=== PATIENT | male | born 1960 | race Two or more races ===

== ENCOUNTER 2020-04-10 11:02 | Inpatient (IN) | payer OTHER, SELFPAY ==
--- NOTE | 2020-04-10 11:04 | ECG_ITS ---
Test Reason : REPEAT Blood Pressure : / mmHG Vent. Rate : 065 BPM Atrial Rate : 065 BPM P-R Int : 166 ms QRS Dur : 066 ms QT Int : 422 ms P-R-T Axes : 028 045 015 degrees QTc Int : 438 ms Normal sinus rhythm Nonspecific T wave abnormality Abnormal ECG No significant changes seen Referred By: Michael Bender Electronically Signed By:ROSETTA CASILLAS MD
--- NOTE | 2020-04-10 11:04 | XR_ITS ---
EXAMINATION: XR CHEST CLINICAL INFORMATION: Chest pain COMPARISON: December 02, 2016 TECHNIQUE: AP portable view of the chest was obtained. FINDINGS: No significant abnormality is noted involving the heart, lungs, mediastinum, bony thorax or soft tissues. Small lung volumes. XR/XR chest 1V IMPRESSION: No acute parenchymal disease.
--- NOTE | 2020-04-10 11:04 | ED_ITS ---
HPI - Chest Pain General Chief Complaint: Chest Pain Stated Complaint: cp Time Seen by Provider: 04/10/20 11:04 Source: patient and EMS Mode of arrival: EMS Limitations: no limitations and language barrier History of Present Illness HPI narrative: patient's history of diabetes hypertension hyperlipidemia and obesity with past medical history of coronary disease with prior non STEMI and stent to LAD and RCA in 2003 and again in 2014 in mid RCA complaining of chest pain since 08:00 o'clock localized to the left side radiating to the back patient had cardiac catheterization in 02/2015 at [facility] which showed multiple diffuse coronary artery disease with ejection fraction of 60% no regional motion abnormality on medical management MD complaint: chest pain Pertinent past history: coronary artery disease, prior [place] and [employer] Onset (ago): hour(s) (3) Timing of current episode: constant Prior episodes: Yes Onset: during rest Pain location: left chest Pain radiation: left arm and back Severity: moderate Quality: tightness Relieving factors: nothing Exacerbating factors: nothing Associated symptoms: diaphoresis Treatment prior to arrival: aspirin Risk Factors Coronary artery disease risk factors: diabetes, smoking history and hypertension Related Data Allergies Allergy/AdvReac Type Severity Reaction Status Date / Time No Known Allergies Allergy Unverified 01/28/20 14:53 Review of Systems Review of Systems: REVIEW OF SYSTEMS: Pertinent positives and negatives are stated above in the history. GEN: no fevers, chills, fatigue HEENT: no nasal congestion, sore throat, ear pain NEURO: no headache, dizziness, focal weakness PULM: no cough, shortness of breath CV: no palpitations, LE edema ABD: no abdominal pain, nausea, vomiting, diarrhea : no dysuria, urgency, frequency SKIN: no rash ROS otherwise negative x 10 [facility] Past Medical History Medical History Arthralgia Asthma Myocardial infarction Social History Social History Alcohol intake: unknown Smoking Status: Former smoker Use of substances other than those prescribed or required for medical reasons: No Advance Directives: No Advance Directives Information Provided: Yes Physical Exam Vital Signs: Vital Signs: Last Vital Signs Temp 99.1 F 04/10/20 11:11 Pulse 68 04/10/20 14:40 Resp 16 04/10/20 12:04 BP 100/65 04/10/20 14:40 Pulse Ox 97 04/10/20 11:11 Body Mass Index 35.4 VITAL SIGNS: Reviewed. GENERAL: Well developed, well nourished, in no acute distress. HEAD: Normocephalic/atraumatic, EYES: PERRLA No pallor/icterus noted OROPHARYNX: Oral mucosa moist no oral lesions NECK: Supple, no adenopathy LUNGS: Normal breath sounds. No adventitious sounds or accessory muscle use CARDIOVASCULAR: Regular rate and rhythm without noted murmurs, no JVD , trace lower extremity edema + ABDOMEN: Soft, non-tender, non-distended with normal bowel sounds. No rigidity. No guarding. No palpable masses or hernias noted MUSCULOSKELETAL: No tenderness, deformities, EXTREMITIES: No cyanosis or edema. SKIN: no rashes, ulcerations, jaundice, pallor NEUROLOGIC: Alert and oriented x 3. Strength and sensation to light touch were grossly intact normal speech Course Course Course Narrative: patient feeling much better now after nitro paste pain is almost gone. Started on heparin drip for non STEMI with significant cardiac history is high sensitive troponin is 21 will repeat troponin in 2 hours and admit MDM - Chest Pain MDM Narrative Medical decision making narrative: patient with significant history of multivessel coronary artery disease status post stent placement came here with chest pain 2 sets of cardiac enzymes at interval of 2 hours negative patient pain for 6 hours and repeat EKG also to normal. Case discussed with Dr. Polanco pound keeper okay to continue heparin for now will do the stress test tomorrow as patient has significant multivessel disease patient feeling much better now Differential Diagnosis Differential diagnosis: Likely stable angina, unstable angina pectoris, st elevation myocardial infarction and chest pain Medical Records Data Attestation: I reviewed the patient's medical records. Lab Data Attestation: I reviewed the patient's lab results. Result diagrams: 04/10/20 11:36 04/10/20 11:36 Labs: Lab Results 04/10/20 04/10/20 04/10/20 Range/Units 11:36 11:36 11:36 WBC 9.7 (4.8-10.8) X10*3/uL RBC 4.53 L (4.60-5.80) X10*6/uL Hgb 12.1 L (14.0-18.0) g/dl Hct 38.9 L (42-52) % MCV 85.9 (80-98) fL MCH 26.7 L (27.0-33.0) pg MCHC 31.1 (31.0-36.0) g/dl RDW 15.1 (11.0-16.0) % Plt Count 288 (160-400) X10*3/uL MPV 9.8 (9.4-12.4) fL Immature Gran % (Auto) 0.3 (0.0-0.4) % Neut % (Auto) 67.5 (45-73) % Lymph % (Auto) 21.4 (20-40) % [place] % (Auto) 7.0 (2-11) % Eos % (Auto) 3.2 (0-4) % Baso % (Auto) 0.6 (0-2) % Lymph # (Auto) 2.1 (1.2-4.9) X10*3/uL [place] # (Auto) 0.7 (0.1-1.2) X10*3/uL Eos # (Auto) 0.3 (0.0-0.4) X10*3/uL Baso # (Auto) 0.1 (0.0-0.2) X10*3/uL Abs Immat Gran (auto) 0.03 (0.00-0.03) X10*3/uL Absolute Neuts (auto) 6.6 (2.0-8.3) X10*3/uL Absolute Nucleated RBC 0.000 (0.0-0.012) X10*3/uL Nucleated RBC % (auto) 0.0 (0.0-0.2) /100WBC PT (10.8-13.0) SEC INR (0.9-1.1) APTT (24.1-38.0) SEC Coag Specimen Comment Sodium 136 (135-145) mmol/L Potassium 4.5 (3.3-5.1) mmol/l Chloride 103 (96-108) mmol/L Carbon Dioxide 26 (22-29) mmol/L Anion Gap 12 (12-20) BUN 11 (9-16) mg/dL Creatinine 1.13 (0.5-1.4) mg/dL Estim Creat Clear Calc 68.3 Estimated GFR > 60 Random Glucose 99 (60-115) mg/dL Calcium 8.8 (8.4-10.2) mg/dL Troponin I High Sens 21.5 (<3.5-35.0) ng/L 04/10/20 04/10/20 Range/Units 11:36 14:09 WBC (4.8-10.8) X10*3/uL RBC (4.60-5.80) X10*6/uL Hgb (14.0-18.0) g/dl Hct (42-52) % MCV (80-98) fL MCH (27.0-33.0) pg MCHC (31.0-36.0) g/dl RDW (11.0-16.0) % Plt Count (160-400) X10*3/uL MPV (9.4-12.4) fL Immature Gran % (Auto) (0.0-0.4) % Neut % (Auto) (45-73) % Lymph % (Auto) (20-40) % [place] % (Auto) (2-11) % Eos % (Auto) (0-4) % Baso % (Auto) (0-2) % Lymph # (Auto) (1.2-4.9) X10*3/uL [place] # (Auto) (0.1-1.2) X10*3/uL Eos # (Auto) (0.0-0.4) X10*3/uL Baso # (Auto) (0.0-0.2) X10*3/uL Abs Immat Gran (auto) (0.00-0.03) X10*3/uL Absolute Neuts (auto) (2.0-8.3) X10*3/uL Absolute Nucleated RBC (0.0-0.012) X10*3/uL Nucleated RBC % (auto) (0.0-0.2) /100WBC PT 13.1 H (10.8-13.0) SEC INR 1.1 (0.9-1.1) APTT > 200.0 H* (24.1-38.0) SEC Coag Specimen Comment DELAY Sodium (135-145) mmol/L Potassium (3.3-5.1) mmol/l Chloride (96-108) mmol/L Carbon Dioxide (22-29) mmol/L Anion Gap (12-20) BUN (9-16) mg/dL Creatinine (0.5-1.4) mg/dL Estim Creat Clear Calc Estimated GFR Random Glucose (60-115) mg/dL Calcium (8.4-10.2) mg/dL Troponin I High Sens 18.9 (<3.5-35.0) ng/L ECG Data ECG #1: Attestation: I personally reviewed and interpreted this ECG as follows: ECG interpretation date: 04/10/20 ECG interpretation time: 11:06 Prior ECG tracings: available for review Interpretation: normal sinus rhythm heart rate 68 beats per minute nonspecific T-wave changes normal intervals normal axis ; impression: no acute ischemia ECG #2: Attestation: I personally reviewed and interpreted this ECG as follows: Prior ECG tracings: available for review Interpretation: normal sinus rhythm with ventricular rate of 65 normal intervals and axis no acute ST T wave changes impression no acute ischemia Critical Care Time Critical Care Time Critical Care Time: Yes Total Critical Care Time: 35 Attestation: critical care involved patient care only Discharge Plan Discharge Clinical Impression: Acute non-ST elevation myocardial infarction (NSTEMI) Patient Disposition: Home, Self-Care
[2020-04-10 11:11] VITALS: BP 109/65; PULSE 71; RESP 16; TEMP 37.3; O2SAT 97; BMI 35.4
[2020-04-10] MEDS: Heparin Sodium,Porcine 5,000 UNIT/ML VIAL 5000 UNIT IVPUSH (11:29)
[2020-04-10] MEDS: Heparin Sodium,Porcine/1/2NS 25,000 UNIT/250 ML IV.SOLN 10 UNIT IVCONT (11:37)
[2020-04-10] MEDS: Nitroglycerin 2 % Oint 1 GM Packet 1 INCH TRANSDERMA (11:40)
[2020-04-10 11:42] LABS: Basophils Absolute Auto 0.1 X10*3/uL (0.0-0.2); Basophils Percent Auto 0.6 % (0-2); Eosinophils Absolute Auto 0.3 X10*3/uL (0.0-0.4); Eosinophils Percent Auto 3.2 % (0-4); Hematocrit 38.9 % (42-52); Hemoglobin 12.1 g/dl (14.0-18.0); Imm Gran Abs Auto 0.03 X10*3/uL (0.00-0.03); Imm Gran Pct Auto 0.3 % (0.0-0.4); Lymphocytes Absolute Auto 2.1 X10*3/uL (1.2-4.9); Lymphocytes Percent Auto 21.4 % (20-40); Mean Corpuscular HGB Conc 31.1 g/dl (31.0-36.0); Mean Corpuscular Hemoglobin 26.7 pg (27.0-33.0); Mean Corpuscular Volume 85.9 fL (80-98); Mean Platelet Volume 9.8 fL (9.4-12.4); Monocytes Absolute Auto 0.7 X10*3/uL (0.1-1.2); Neutrophils Absolute Auto 6.6 X10*3/uL (2.0-8.3); Neutrophils Percent Auto 67.5 % (45-73); Platelet Count 288 X10*3/uL (160-400); Red Blood Count 4.53 X10*6/uL (4.60-5.80); Red Cell Distribution Width 15.1 % (11.0-16.0); White Blood Count 9.7 X10*3/uL (4.8-10.8)
[2020-04-10 11:44] LABS: MANUAL DIFF FLAG NO
[2020-04-10 12:04] VITALS: BP 106/65; PULSE 67; RESP 16
[2020-04-10 12:17] LABS: INTERNATIONAL NORM RATIO 1.1 (0.9-1.1); Prothrombin Time 13.1 SEC (10.8-13.0)
[2020-04-10 12:22] LABS: Anion Gap 12 (12-20); Blood Urea Nitrogen 11 mg/dL (9-16); Calcium 8.8 mg/dL (8.4-10.2); Carbon Dioxide 26 mmol/L (22-29); Chloride 103 mmol/L (96-108); Creatinine Clr Calc Pharmacy 68.3; Estimated Glomerular Filt Rate > 60; Glucose Random 99 mg/dL (60-115); Potassium 4.5 mmol/l (3.3-5.1); Sodium 136 mmol/L (135-145)
[2020-04-10 12:23] LABS: Troponin-I High Sensitivity 21.5 ng/L (<3.5-35.0)
[2020-04-10 12:27] LABS: Delay - Coag DELAY
[2020-04-10 12:44] LABS: Partial Thromboplastin Time > 200.0 SEC (24.1-38.0)
--- NOTE | 2020-04-10 13:52 | ECG_ITS ---
Test Reason : CHEST PAIN Blood Pressure : / mmHG Vent. Rate : 068 BPM Atrial Rate : 068 BPM P-R Int : 162 ms QRS Dur : 066 ms QT Int : 412 ms P-R-T Axes : 029 041 004 degrees QTc Int : 438 ms Normal sinus rhythm Nonspecific T wave abnormality Abnormal ECG When compared with ECG of [id number] Heart rate has decreased Nonspecific T wave abnormality is new Referred By: Michael Bender Electronically Signed By:ROSETTA CASILLAS MD
[2020-04-10 14:40] VITALS: BP 100/65; PULSE 68
[2020-04-10 14:48] LABS: Troponin-I High Sensitivity 18.9 ng/L (<3.5-35.0)
--- NOTE | 2020-04-10 16:08 | PM.EVENT ---
Event Note Date of Service: 04/10/20 Event Note: Patient seen and examined independently and was present during batista portion of E/M service. Agree with midlevel's history, physical, assessment, and plan. 59M presnted with chest pain chest pain concern for Unstable angina, conitnue heparin, cardio eval, plan for stress test
--- NOTE | 2020-04-10 17:02 | P.HPHOSP_ITS ---
History of Present Illness Date of Service: 04/10/20 Chief Complaint: chest pain this is a 59-year-old Monegasque-speaking male with a history of coronary artery disease who presents to the emergency department today with complaints of chest pain. He states his chest pain began around 08:00 this morning and has been constant since onset. The pain is waxing and waning in nature and described as tight. It is worse with movement including movement of his left arm. He has no pleuritic component to his pain but pain is reproducible on exam. He denies shortness of breath, nausea, vomiting, diaphoresis. Currently his pain is a 6/10 in severity. He reports mild improvement with nitro paste. His symptoms are similar to previous episodes of chest pain which required intervention. He has had 2- troponins in the emergency department an EKG was unchanged from previous however given history that decision was made to start heparin and admit for further workup. Review of Systems Review of Systems: Yes all other systems are reviewed and are negative Constitutional: Constitutional: Denies chills and Denies fever(s) Cardiovascular: Cardiovascular: Reports chest pain, Denies palpitations, Denies dyspnea and Denies paroxysmal nocturnal dyspnea Respiratory: Respiratory: Denies dyspnea Gastrointestinal: Gastrointestinal: Denies diarrhea, Denies nausea and Denies vomiting Endocrine: Endocrine: Denies palpitations [facility] Medical History (Updated 04/10/20 @ 17:19 by KEVIN Pearson) Arthralgia Asthma Coronary artery disease GERD (gastroesophageal reflux disease) GI bleed Hyperlipidemia Hypertension Osteoarthritis Family History Other CAD (coronary artery disease) Social History (Updated 04/10/20 @ 17:11 by KEVIN Pearson) Alcohol intake: former Smoking Status: Former smoker Use of substances other than those prescribed or required for medical reasons: No Advance Directives: No Advance Directives Information Provided: Yes Meds Allergies Allergy/AdvReac Type Severity Reaction Status Date / Time No Known Allergies Allergy Unverified 01/28/20 14:53 Home Medications Medication Instructions Recorded Confirmed Type aspirin 1 tab PO DAILY 04/10/20 04/10/20 History cholecalciferol (vitamin D3) 1 cap PO DAILY 04/10/20 04/10/20 History [Vitamin D3] lisinopril 1 tab PO DAILY 04/10/20 04/10/20 History metoprolol succinate 1 tab PO DAILY 04/10/20 04/10/20 History omeprazole 1 cap PO QAM 04/10/20 04/10/20 History rosuvastatin 1 tab PO BEDTIME 04/10/20 04/10/20 History sertraline 1 tab PO DAILY 04/10/20 04/10/20 History Physical Exam Vital Signs and Narrative: Vital Signs: Last Vital Signs Temp 99.1 F 04/10/20 11:11 Pulse 68 04/10/20 14:40 Resp 16 04/10/20 12:04 BP 100/65 04/10/20 14:40 Pulse Ox 97 04/10/20 11:11 Body Mass Index 35.4 Const: Nutritional Appearance: well nourished Orientation/consciousness: patient oriented x3 HENMT: Head: Yes normocephalic and Yes atraumatic Eyes: Sclerae: sclerae normal Chest: Chest palpation & inspection: normal inspection of the chest and tenderness (left ribcage) Resp: Effort & Inspection: normal respiratory effort and no respiratory distress Auscultation: clear to auscultation bilaterally Cardio: Rate: regular rate Rhythm: regular rhythm GI: Palpation (GI): Soft to palpation and nontender Skin: General skin exam: no rashes or lesions noted Neuro: General: patient oriented x3 Cranial nerves: Yes CN's II-XII intact bilaterally and Yes Bilaterally intact EOM present Extrem: General: Yes normal to inspection Results Labs CBC and Chem 7: 04/10/20 11:36 04/10/20 11:36 Labs: Laboratory Results - last 24 hr 04/10/20 04/10/20 04/10/20 11:36 11:36 11:36 MCV 85.9 MCH 26.7 L MCHC 31.1 RDW 15.1 Plt Count 288 MPV 9.8 Immature Gran % (Auto) 0.3 Neut % (Auto) 67.5 Lymph % (Auto) 21.4 [place] % (Auto) 7.0 Eos % (Auto) 3.2 Baso % (Auto) 0.6 Lymph # (Auto) 2.1 [place] # (Auto) 0.7 Eos # (Auto) 0.3 Baso # (Auto) 0.1 Abs Immat Gran (auto) 0.03 Absolute Neuts (auto) 6.6 Absolute Nucleated RBC 0.000 Nucleated RBC % (auto) 0.0 PT INR APTT Coag Specimen Comment Anion Gap 12 Estim Creat Clear Calc 68.3 Estimated GFR > 60 Random Glucose 99 Calcium 8.8 Troponin I High Sens 21.5 04/10/20 04/10/20 11:36 14:09 MCV MCH MCHC RDW Plt Count MPV Immature Gran % (Auto) Neut % (Auto) Lymph % (Auto) [place] % (Auto) Eos % (Auto) Baso % (Auto) Lymph # (Auto) [place] # (Auto) Eos # (Auto) Baso # (Auto) Abs Immat Gran (auto) Absolute Neuts (auto) Absolute Nucleated RBC Nucleated RBC % (auto) PT 13.1 H INR 1.1 APTT > 200.0 H* Coag Specimen Comment DELAY Anion Gap Estim Creat Clear Calc Estimated GFR Random Glucose Calcium Troponin I High Sens 18.9 Imaging Radiologist's Impressions: Impressions Chest X-Ray 04/10/20 11:04 IMPRESSION: No acute parenchymal disease. Assessment and Plan (1) Unstable angina: Status: Acute this is a 59-year-old Monegasque-speaking male with history of coronary artery disease status post stent placement, hypertension, dyslipidemia, acid reflux, osteoarthritis who presents emergency department with chest pain chest pain/ unstable angina cardiac enzyme negative x2, ongoing chest pain since 8am. reproducible on exam however given cardiac history recommended by cardiology to continue heparin dr ip started in the ED cardiology consult repeat troponin continue aspirin, statin, beta-marianne hypertension blood pressure on lower side will hold lisinopril continue beta-marianne as blood pressure allows GERD continue PPI mood continue sertraline DVT prophylaxis- heparin drip code status- full code this case was discussed with Dr. Mcgregor
[2020-04-10 17:38] VITALS: BP 114/53; PULSE 66; RESP 14; TEMP 37.3; O2SAT 97
[2020-04-10 18:19] LABS: Troponin-I High Sensitivity 16.9 ng/L (<3.5-35.0)
[2020-04-10 20:03] VITALS: BP 103/64; PULSE 58; RESP 20; TEMP 36.2
[2020-04-10] MEDS: Atorvastatin Calcium 80 MG TABLET PO (20:42)
[2020-04-10] MEDS: Acetaminophen 325 MG TABLET 650 MG PO (20:42)
[2020-04-10] MEDS: Omeprazole 20 MG CAPSULE.DR PO (20:42)
[2020-04-10 21:37] LABS: PTT Heparin Drip 162.3 SEC (53-77.9)
[2020-04-10 22:00] VITALS: BP 104/65; PULSE 54; RESP 20; TEMP 36.4; O2SAT 95
[2020-04-10 22:39] LABS: PTT Heparin Drip 134.5 SEC (53-77.9)
[2020-04-10 23:45] LABS: PTT Heparin Drip 60.3 SEC (53-77.9)
[2020-04-11 02:51] VITALS: BP 142/73; PULSE 57; RESP 20; TEMP 36.4; O2SAT 99
[2020-04-11] MEDS: Omeprazole 20 MG CAPSULE.DR PO (05:55)
[2020-04-11 06:23] LABS: MANUAL DIFF FLAG NO
[2020-04-11 06:45] LABS: Basophils Absolute Auto 0.1 X10*3/uL (0.0-0.2); Basophils Percent Auto 0.6 % (0-2); Eosinophils Absolute Auto 0.4 X10*3/uL (0.0-0.4); Eosinophils Percent Auto 3.8 % (0-4); Hematocrit 39.2 % (42-52); Hemoglobin 12.2 g/dl (14.0-18.0); Imm Gran Abs Auto 0.04 X10*3/uL (0.00-0.03); Imm Gran Pct Auto 0.4 % (0.0-0.4); Lymphocytes Absolute Auto 2.8 X10*3/uL (1.2-4.9); Lymphocytes Percent Auto 26.3 % (20-40); Mean Corpuscular HGB Conc 31.1 g/dl (31.0-36.0); Mean Corpuscular Hemoglobin 26.6 pg (27.0-33.0); Mean Corpuscular Volume 85.4 fL (80-98); Mean Platelet Volume 10.7 fL (9.4-12.4); Monocytes Percent Auto 9.6 % (2-11); Neutrophils Absolute Auto 6.4 X10*3/uL (2.0-8.3); Neutrophils Percent Auto 59.3 % (45-73); Platelet Count 254 X10*3/uL (160-400); Red Blood Count 4.59 X10*6/uL (4.60-5.80); Red Cell Distribution Width 15.3 % (11.0-16.0); White Blood Count 10.8 X10*3/uL (4.8-10.8)
[2020-04-11 06:58] LABS: Anion Gap 13 (12-20); Blood Urea Nitrogen 10 mg/dL (9-16); Calcium 8.8 mg/dL (8.4-10.2); Carbon Dioxide 24 mmol/L (22-29); Chloride 103 mmol/L (96-108); Creatinine Clr Calc Pharmacy 81.3; Estimated Glomerular Filt Rate > 60; Glucose Random 106 mg/dL (60-115); Potassium 3.9 mmol/l (3.3-5.1); Sodium 136 mmol/L (135-145)
[2020-04-11 07:00] LABS: PTT Heparin Drip 54.2 SEC (53-77.9)
[2020-04-11 07:22] VITALS: BP 130/77; PULSE 60; RESP 18; TEMP 36.4; O2SAT 98
[2020-04-11 08:28] VITALS: BP 130/77; PULSE 60
[2020-04-11] MEDS: Metoprolol Succinate ER 25 MG TAB.ER.24H PO (08:28)
[2020-04-11] MEDS: 0.9 % Sodium Chloride Flush 3 ML SYRINGE IVFLUSH ×2 (08:28→14:10)
[2020-04-11] MEDS: Sertraline HCL 100 MG TABLET PO (08:28)
[2020-04-11] MEDS: Aspirin Enteric Coated 81 MG TABLET.DR PO (08:28)
--- NOTE | 2020-04-11 09:16 | PM.CNCAR ---
History of Present Illness History of Present Illness Date of Service: 04/11/20 Requesting physician: Yadiel Humphries Consult reason: chest pain Chief complaint: Chest Pain Narrative: Thank you for calling us on consult on patient Sebastian, 59-year-old male with prior history of coronary artery disease with last percutaneous intervention done in 2016. He has been doing well since then. Yesterday morning while he was at home he developed retrosternal chest discomfort which he describes as cyst-like discomfort pressure radiating to the back. The symptoms are very similar to his symptoms in 2016 when he got stenting to the OM 2 and the RCA artery. He had no associated diaphoresis, nausea, vomiting. He did have some shortness of breath. No recent fever chills, cough productive of phlegm. She waited for few hours to see if the pain would dissipate but did not any came to the emergency room. Unfortunately EKGs not available for me for review of the chart. His troponins have been negative. However he was started on IV heparin given his prior history and was started on nitro paste. His symptoms have completely resolved at this time. His troponins remain negative. He denies any recent onset exertional chest discomfort. Review of Systems Constitutional: Constitutional: Denies anorexia, Denies body ache(s), Denies chills and Denies fever(s) Eyes: Eyes: Reports no additional eye complaints ENT: Reports system reviewed and no additional complaints, except as documented Cardiovascular: Cardiovascular: Denies chest pain with activity, Denies lightheadedness, Denies radiating jaw, neck or arm pain, Denies palpitations and Denies dyspnea on exertion Respiratory: Respiratory: Denies cough, Denies excessive phlegm production and Denies dyspnea on exertion Gastrointestinal: Gastrointestinal: Reports no additional gastrointestinal complaints Genitourinary: Genitourinary: Reports no additional male genitourinary complaints Musculoskeletal: Musculoskeletal: Reports no additional musculoskeletal complaints Neurologic: Reports system reviewed and no additional complaints, except as documented Psychiatric: Psychiatric: Reports no additional psychiatric complaints Endocrine: Endocrine: Reports no additional endocrine complaints and Denies palpitations Hematologic/Lymphatic: Hematologic/Lymphatic: Reports no additional hematologic/lymphatic complaints Allergic/Immunologic: Allergic/Immunologic: Reports no additional allergic/immunologic complaints PMFSH Past Medical History Medical History Arthralgia Asthma Coronary artery disease GERD (gastroesophageal reflux disease) GI bleed Hyperlipidemia Hypertension Osteoarthritis Family History Family History Other CAD (coronary artery disease) Social History Social History Household Members: Spouse Housing: Apartment Do you presently have visiting nurse or other home services: Yes (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 If so, by whom?: No Do you feel safe in your current relationship?: Yes Is there a partner from a previous relationship who is making you feel unsafe now?: No Are you made to feel afraid or neglected: No Gnosticism Healthcare Practices: spiritism Advance Directives: No Advance Directives Information Provided: Yes Do you have thoughts of harming others: None Do you have a plan to hurt others: No Plan Recently lost weight without trying: No Meds Allergies Allergy/AdvReac Type Severity Reaction Status Date / Time No Known Allergies Allergy Unverified 01/28/20 14:53 Home Medications Medication Instructions Recorded Confirmed Type aspirin 1 tab PO DAILY 04/10/20 04/10/20 History cholecalciferol (vitamin D3) 1 cap PO DAILY 04/10/20 04/10/20 History [Vitamin D3] lisinopril 1 tab PO DAILY 04/10/20 04/10/20 History metoprolol succinate 1 tab PO DAILY 04/10/20 04/10/20 History omeprazole 1 cap PO QAM 04/10/20 04/10/20 History rosuvastatin 1 tab PO BEDTIME 04/10/20 04/10/20 History sertraline 1 tab PO DAILY 04/10/20 04/10/20 History Physical Exam Vital Signs: Vital Signs: Last Vital Signs Temp 97.6 F 04/11/20 07:22 Pulse 60 04/11/20 08:28 Resp 18 04/11/20 07:22 BP 130/77 04/11/20 08:28 Pulse Ox 98 04/11/20 07:22 Body Mass Index 35.4 Const: General: cooperative, comfortable, no acute distress, alert and awake Nutritional Appearance: obese Orientation/consciousness: patient oriented x3 Limitations: no limitations HENMT: Head: Yes normal to inspection, Yes normocephalic and Yes atraumatic Eyes: General: appearance normal, both eyes and all related structures Neck: Neck: Yes trachea midline, Yes supple and Yes no JVD Chest: Chest palpation & inspection: normal inspection of the chest Resp: Effort & Inspection: normal respiratory effort Auscultation: clear to auscultation bilaterally Cardio: Jugular venous distension: no JVD Palpation: normal PMI Rate: regular rate Rhythm: regular rhythm Heart sounds: S1 normal heart sound present and S2 normal heart sound present Peripheral pulses: Peripheral pulses 2+ throughout GI: Auscultation: normal bowel sounds Skin: General skin exam: no rashes or lesions noted Neuro: General: patient oriented x3 and no focal motor deficits Extrem: General: Yes no clubbing, cyanosis or edema Psych: Appearance: grossly normal Results Labs and Meds Result diagrams: 04/11/20 05:45 04/11/20 05:45 Lab results: Laboratory Results - last 24 hr 04/10/20 04/10/20 04/10/20 11:36 11:36 11:36 WBC 9.7 RBC 4.53 L Hgb 12.1 L Hct 38.9 L MCV 85.9 MCH 26.7 L MCHC 31.1 RDW 15.1 Plt Count 288 MPV 9.8 Immature Gran % (Auto) 0.3 Neut % (Auto) 67.5 Lymph % (Auto) 21.4 [place] % (Auto) 7.0 Eos % (Auto) 3.2 Baso % (Auto) 0.6 Lymph # (Auto) 2.1 [place] # (Auto) 0.7 Eos # (Auto) 0.3 Baso # (Auto) 0.1 Abs Immat Gran (auto) 0.03 Absolute Neuts (auto) 6.6 Absolute Nucleated RBC 0.000 Nucleated RBC % (auto) 0.0 PT INR APTT PTT (Heparin Protocol) Coag Specimen Comment Sodium 136 Potassium 4.5 Chloride 103 Carbon Dioxide 26 Anion Gap 12 BUN 11 Creatinine 1.13 Estim Creat Clear Calc 68.3 Estimated GFR > 60 Random Glucose 99 Calcium 8.8 Troponin I High Sens 21.5 04/10/20 04/10/20 04/10/20 11:36 14:09 17:46 WBC RBC Hgb Hct MCV MCH MCHC RDW Plt Count MPV Immature Gran % (Auto) Neut % (Auto) Lymph % (Auto) [place] % (Auto) Eos % (Auto) Baso % (Auto) Lymph # (Auto) [place] # (Auto) Eos # (Auto) Baso # (Auto) Abs Immat Gran (auto) Absolute Neuts (auto) Absolute Nucleated RBC Nucleated RBC % (auto) PT 13.1 H INR 1.1 APTT > 200.0 H* PTT (Heparin Protocol) Coag Specimen Comment DELAY Sodium Potassium Chloride Carbon Dioxide Anion Gap BUN Creatinine Estim Creat Clear Calc Estimated GFR Random Glucose Calcium Troponin I High Sens 18.9 16.9 04/10/20 04/10/20 04/10/20 19:58 21:55 23:26 WBC RBC Hgb Hct MCV MCH MCHC RDW Plt Count MPV Immature Gran % (Auto) Neut % (Auto) Lymph % (Auto) [place] % (Auto) Eos % (Auto) Baso % (Auto) Lymph # (Auto) [place] # (Auto) Eos # (Auto) Baso # (Auto) Abs Immat Gran (auto) Absolute Neuts (auto) Absolute Nucleated RBC Nucleated RBC % (auto) PT INR APTT PTT (Heparin Protocol) 162.3 H* 134.5 H* 60.3 D Coag Specimen Comment Sodium Potassium Chloride Carbon Dioxide Anion Gap BUN Creatinine Estim Creat Clear Calc Estimated GFR Random Glucose Calcium Troponin I High Sens 04/11/20 04/11/20 04/11/20 05:45 05:45 05:45 WBC 10.8 RBC 4.59 L Hgb 12.2 L Hct 39.2 L MCV 85.4 MCH 26.6 L MCHC 31.1 RDW 15.3 Plt Count 254 MPV 10.7 Immature Gran % (Auto) 0.4 Neut % (Auto) 59.3 Lymph % (Auto) 26.3 [place] % (Auto) 9.6 Eos % (Auto) 3.8 Baso % (Auto) 0.6 Lymph # (Auto) 2.8 [place] # (Auto) 1.0 Eos # (Auto) 0.4 Baso # (Auto) 0.1 Abs Immat Gran (auto) 0.04 H Absolute Neuts (auto) 6.4 Absolute Nucleated RBC 0.000 Nucleated RBC % (auto) 0.0 PT INR APTT PTT (Heparin Protocol) Coag Specimen Comment Sodium 136 Potassium 3.9 Chloride 103 Carbon Dioxide 24 Anion Gap 13 BUN 10 Creatinine 0.95 Estim Creat Clear Calc 81.3 Estimated GFR > 60 Random Glucose 106 Calcium 8.8 Troponin I High Sens 12.0 04/11/20 05:45 WBC RBC Hgb Hct MCV MCH MCHC RDW Plt Count MPV Immature Gran % (Auto) Neut % (Auto) Lymph % (Auto) [place] % (Auto) Eos % (Auto) Baso % (Auto) Lymph # (Auto) [place] # (Auto) Eos # (Auto) Baso # (Auto) Abs Immat Gran (auto) Absolute Neuts (auto) Absolute Nucleated RBC Nucleated RBC % (auto) PT INR APTT PTT (Heparin Protocol) 54.2 Coag Specimen Comment Sodium Potassium Chloride Carbon Dioxide Anion Gap BUN Creatinine Estim Creat Clear Calc Estimated GFR Random Glucose Calcium Troponin I High Sens EKG shows normal sinus rhythm with nonspecific T-wave changes. Assessment and Plan (1) Unstable angina: Status: Acute Symptoms are concerning for unstable angina in a middle-aged man with prior multiple coronary intervention, last done in 2014 to OM2 and RCA and prior stenting in 2003 to LAD and RCA. Currently enzymes are negative. EKG shows nonspecific changes. HoweverTIMI risk score is 3. His symptoms resolved with IV heparin nitro paste will continue IV heparin for now. Best course of action is cardiac catheterization. This was discussed with him in details. He is a little hesitant to go to [facility] due to the ongoing COVID issues. However discuss about low risk for in-hospital act position of this wire risk. He is agreeable. Risks, benefits and alternatives were discussed. Continue high-intensity statins, nitrates as well as metoprolol therapy. Continue low-dose aspirin therapy. Arrangements have been made. Hopefully transfer later today for cardiac catheterization later today. Patient will follow with his own fund raiser as outpatient. (2) CAD (coronary artery disease): Status: Acute Continue current medical therapy and aggressive risk factor modification. Cardiac catheterization above. Continue high-intensity statin therapy with target goal LDL less than 70 mg/dL. Blood pressure is currently well optimized, continue current therapy.
--- NOTE | 2020-04-11 09:42 | MHC.CM.PN ---
CM spoke with Patient and his Girlfriend/Carolina/HCP via [employer] Of Contracts. Patient lives with Carolina in an apartment and he uses a walker to assist with mobility. Patient receives 3 hours/day, QD, of [employer] services and the goal for dc is to return home with resumption of these services. CM has initiated and will follow for dc planning. IMM addressed with Patient and the original has been given to him and a copy has been placed on the chart.PCP is from [facility].
--- NOTE | 2020-04-11 09:59 | P.DS_ITS ---
DS: Providers Provider Date of admission: 04/10/20 16:32 Primary care physician: Unknown Physician Consults: 04/10/20 19:34 Consult to Cardiology Routine Consulting Provider: Sin Polanco Reason for consultation: chest pain; h/o cad Has provider been notified: No DS: Diagnosis Discharge Diagnosis (1) Unstable angina: Status: Acute (2) CAD (coronary artery disease): Status: Acute DS: Medications Discharge Medications Home Medications: Home Medications Medication Instructions Recorded Confirmed aspirin 1 tab PO DAILY 04/10/20 04/10/20 cholecalciferol (vitamin D3) 1 cap PO DAILY 04/10/20 04/10/20 [Vitamin D3] lisinopril 1 tab PO DAILY 04/10/20 04/10/20 metoprolol succinate 1 tab PO DAILY 04/10/20 04/10/20 omeprazole 1 cap PO QAM 04/10/20 04/10/20 rosuvastatin 1 tab PO BEDTIME 04/10/20 04/10/20 sertraline 1 tab PO DAILY 04/10/20 04/10/20 Previous Rx's Medication Instructions Recorded heparin (porcine) 0 unit IVPUSH BOLUS PRN #1 ml 04/11/20 heparin(porcine) in 0.45% NaCl 25,000 unit CONTINUOUS IV INFUSION 04/11/20 .Q0M #1 ml DS: Summary Hospital Course Hospital Course: HPI: this is a 59-year-old Greek-speaking male with a history of coronary artery disease who presents to the emergency department today with complaints of chest pain. He states his chest pain began around 08:00 this morning and has been constant since onset. The pain is waxing and waning in nature and described as tight. It is worse with movement including movement of his left arm. He has no pleuritic component to his pain but pain is reproducible on exam. He denies shortness of breath, nausea, vomiting, diaphoresis. Currently his pain is a 6/10 in severity. He reports mild improvement with nitro paste. His symptoms are similar to previous episodes of chest pain which required intervention. He has had 2- troponins in the emergency department an EKG was unchanged from previous however given history that decision was made to start heparin and admit for further workup. Hospital Course: Patient was started on treatment for Unstable angina with heparin gtt, aspirin, bb, statin, nitropaste. With these measures his symptoms did resolved. However, due to his known CAD cardiology deemed the patient to be high risk and decision was made to transfer to [facility] for cardiac catherization. Patient and patients informed and agreeable to transfer. Time Spent with Patient Time attestation: Total time spent providing and/or coordinating discharge services: Physical Exam Vital Signs: Vital Signs: Last Vital Signs Temp 97.6 F 04/11/20 07:22 Pulse 60 04/11/20 08:28 Resp 18 04/11/20 07:22 BP 130/77 04/11/20 08:28 Pulse Ox 98 04/11/20 07:22 Body Mass Index 35.4 General - no acute distress, appears comfortable Cardiovascular - regular rate and rhythm, S1-S2 Lungs - normal respiratory effort, clear to auscultation bilaterally, no wheezing Abdomen - soft, nontender, no rebound or guarding Extremities - no edema bilaterally Neuro - awake and alert, no focal deficits DS: Data Data Completed and Pending Labs on day of discharge: Laboratory Last Values WBC 10.8 X10*3/uL (4.8-10.8) 04/11/20 05:45 RBC 4.59 X10*6/uL (4.60-5.80) L 04/11/20 05:45 Hgb 12.2 g/dl (14.0-18.0) L 04/11/20 05:45 Hct 39.2 % (42-52) L 04/11/20 05:45 MCV 85.4 fL (80-98) 04/11/20 05:45 MCH 26.6 pg (27.0-33.0) L 04/11/20 05:45 MCHC 31.1 g/dl (31.0-36.0) 04/11/20 05:45 RDW 15.3 % (11.0-16.0) 04/11/20 05:45 Plt Count 254 X10*3/uL (160-400) 04/11/20 05:45 MPV 10.7 fL (9.4-12.4) 04/11/20 05:45 Immature Gran % (Auto) 0.4 % (0.0-0.4) 04/11/20 05:45 Neut % (Auto) 59.3 % (45-73) 04/11/20 05:45 Lymph % (Auto) 26.3 % (20-40) 04/11/20 05:45 [place] % (Auto) 9.6 % (2-11) 04/11/20 05:45 Eos % (Auto) 3.8 % (0-4) 04/11/20 05:45 Baso % (Auto) 0.6 % (0-2) 04/11/20 05:45 Lymph # (Auto) 2.8 X10*3/uL (1.2-4.9) 04/11/20 05:45 [place] # (Auto) 1.0 X10*3/uL (0.1-1.2) 04/11/20 05:45 Eos # (Auto) 0.4 X10*3/uL (0.0-0.4) 04/11/20 05:45 Baso # (Auto) 0.1 X10*3/uL (0.0-0.2) 04/11/20 05:45 Abs Immat Gran (auto) 0.04 X10*3/uL (0.00-0.03) H 04/11/20 05:45 Absolute Neuts (auto) 6.4 X10*3/uL (2.0-8.3) 04/11/20 05:45 Absolute Nucleated RBC 0.000 X10*3/uL (0.0-0.012) 04/11/20 05:45 Nucleated RBC % (auto) 0.0 /100WBC (0.0-0.2) 04/11/20 05:45 PT 13.1 SEC (10.8-13.0) H 04/10/20 11:36 INR 1.1 (0.9-1.1) 04/10/20 11:36 APTT > 200.0 SEC (24.1-38.0) H* 04/10/20 11:36 PTT (Heparin Protocol) 54.2 SEC (53-77.9) 04/11/20 05:45 Coag Specimen Comment DELAY 04/10/20 11:36 Sodium 136 mmol/L (135-145) 04/11/20 05:45 Potassium 3.9 mmol/l (3.3-5.1) 04/11/20 05:45 Chloride 103 mmol/L (96-108) 04/11/20 05:45 Carbon Dioxide 24 mmol/L (22-29) 04/11/20 05:45 Anion Gap 13 (12-20) 04/11/20 05:45 BUN 10 mg/dL (9-16) 04/11/20 05:45 Creatinine 0.95 mg/dL (0.5-1.4) 04/11/20 05:45 Estim Creat Clear Calc 81.3 04/11/20 05:45 Estimated GFR > 60 04/11/20 05:45 Random Glucose 106 mg/dL (60-115) 04/11/20 05:45 Calcium 8.8 mg/dL (8.4-10.2) 04/11/20 05:45 Troponin I High Sens 12.0 ng/L (<3.5-35.0) 04/11/20 05:45 [facility]ician,Unknown [Primary Care Provider] - Discharge Medications: New heparin(porcine) in 0.45% NaCl 25,000 unit/250 mL Parenteral Solution 25,000 unit continuous IV infusion .Q0M Qty: 1 RF: 0 heparin (porcine) 5,000 unit/mL Solution 0 unit IVPUSH BOLUS PRN (Reason: [id number]) Qty: 1 RF: 0 Continued lisinopril 20 mg tablet 1 tab PO DAILY RF: 0 sertraline 100 mg tablet 1 tab PO DAILY RF: 0 aspirin 81 mg tablet,delayed release (DR/EC) 1 tab PO DAILY RF: 0 omeprazole 20 mg capsule,delayed release(DR/EC) 1 cap PO QAM RF: 0 metoprolol succinate 25 mg tablet extended release 24 hr 1 tab PO DAILY RF: 0 rosuvastatin 40 mg tablet 1 tab PO BEDTIME RF: 0 cholecalciferol (vitamin D3) [Vitamin D3] 50 mcg (2,000 unit) capsule 1 cap PO DAILY RF: 0 Discharge Orders: Discharge Order (Routine); Ordered 04/11/20 Ordered By: Yadiel Humphries Diet: advance to usual diet and other Activity on Discharge: per [facility] Visit Report Forms: Patient Portal Discharge page Care Plan Goals: To go to [facility] and get evaluated heart evaluated Health Concerns: CAD / Unstable Angina Plan of Treatment: Go to [facility] for further evaluation
[2020-04-11 11:08] VITALS: BP 119/77; PULSE 59; RESP 18; TEMP 36.1; O2SAT 98
[2020-04-11 12:32] LABS: PTT Heparin Drip 50.9 SEC (53-77.9)
[2020-04-11] MEDS: Heparin Sodium,Porcine 5,000 UNIT/ML VIAL IVPUSH (14:07)
[2020-04-11 15:41] VITALS: BP 119/68; PULSE 72; RESP 20; TEMP 36.3; O2SAT 100
[2020-04-11] MEDS: Heparin Sodium,Porcine/1/2NS 25,000 UNIT/250 ML IV.SOLN 7.97 UNIT IVCONT (15:50)
== END 2020-04-11 17:00 | disposition short-term general hospital (02) | DRG 303 ==
LOC: HO.ED 16:00 → HO.IMC 17:04
PROVIDERS: Physician Assistant Medical; Admitting Provider Internal Medicine; Emergency Provider Internal Medicine; Visit Provider Family Medicine
DX: I25.110 Atherosclerotic heart disease of native coronary artery with unstable angina pectoris (principal); K21.9 Gastro-esophageal reflux disease without esophagitis; E78.5 Hyperlipidemia, unspecified; E11.9 Type 2 diabetes mellitus without complications; I10 Essential (primary) hypertension; E66.9 Obesity, unspecified; Z95.1 Presence of aortocoronary bypass graft; Z68.35 Body mass index [BMI] 35.0-35.9, adult; Z87.891 Personal history of nicotine dependence; Z79.82 Long term (current) use of aspirin; Z79.899 Other long term (current) drug therapy
CPT/HCPCS: 36415; 71045; 80048; 84484; 85025; 85610; 85730; 93005; 96374; 99285; 99291

== ENCOUNTER → 2020-04-25 10:14 | Outpatient (BNVA) | payer OTHER, SELFPAY | PROVIDERS: PCP Internal Medicine; Referring Provider Internal Medicine; Visit Provider Surgery | DX: K40.90 Unilateral inguinal hernia, without obstruction or gangrene, not specified as recurrent (principal); I25.10 Atherosclerotic heart disease of native coronary artery without angina pectoris | CPT/HCPCS: 99202 ==

== ENCOUNTER 2020-05-31 09:46 | Day surgery (SDC) | payer OTHER, SELFPAY ==
[2020-05-30 13:02] VITALS: BMI 35.1
--- NOTE | 2020-05-30 13:45 | P.CONAN_ITS ---
Documented by User: Valentina Early 05/30/20 15:14 HPI - Anesthesia Eval Consult details Narrative: 59yo M for Left Hernia Repair Inguinal Cardiac cleared @ intermed Pt admitted [facility] 04/11/20 with CP. Transferred to [facility] for cath. Called for [facility] discharge summary, cath report, echo [facility] Past Medical History Medical History Arthralgia Asthma Coronary artery disease GERD (gastroesophageal reflux disease) GI bleed Hyperlipidemia Hypertension Left inguinal hernia Osteoarthritis Family History Family History Other CAD (coronary artery disease) Surgical History Surgical History History of colonoscopy Social History Social History Household Members: Spouse Housing: Apartment Alcohol intake: former Smoking Status: Former smoker Tobacco Type: Cigarette Second Hand Smoke Exposure: No Use of substances other than those prescribed or required for medical reasons: No Advance Directives: No Advance Directives Information Provided: No Advance Directives on File: No service: No Current occupational status: disabled Meds Allergies Allergy/AdvReac Type Severity Reaction Status Date / Time No Known Allergies Allergy Verified 04/25/20 10:24 Home Medications Medication Instructions Recorded Confirmed Type aspirin 1 tab PO DAILY 04/10/20 04/10/20 History cholecalciferol (vitamin D3) 1 cap PO DAILY 04/10/20 04/10/20 History [Vitamin D3] lisinopril 1 tab PO DAILY 04/10/20 04/10/20 History metoprolol succinate 1 tab PO DAILY 04/10/20 04/10/20 History omeprazole 1 cap PO QAM 04/10/20 04/10/20 History rosuvastatin 1 tab PO BEDTIME 04/10/20 04/10/20 History sertraline 1 tab PO DAILY 04/10/20 04/10/20 History Exam Exam Date and Time: May 30, 2020 1345 Height,Weight and Vital Signs: Height 5 ft 3 in Weight 90 kg Pertinent Lab Results Pertinent Lab Results: Laboratory Tests 04/11/20 04/11/20 05:45 05:45 WBC 10.8 Hgb 12.2 L Hct 39.2 L Plt Count 254 Sodium 136 Potassium 3.9 Chloride 103 Carbon Dioxide 24 BUN 10 Creatinine 0.95 Narrative Narrative: EKG 04/11/20 NSR @ 59 ECHO 04/12/20 LVEF 55-60%, no definite RWMA, Normal Diastolic function, mild dilation of aoritc root, RV poorly visualized - RV size and systolic function is probably normal, Trace TR otherwise normal valves Cath 04/14/20: Mod multivessel CAD Patent stent in LAD and LCX Patent RCA stents with mild to mod ISR 55% prox RCA, 65% distal RCA 70% diagonal 65% obtuse marginal Some progression since last cath, mainly of RCA Recommended to treat aggressively anti anginal therapy Assessment and Plan Assessment Anesthesia Assessment: Chart Reviewed Documented by User: Alethea Jama 05/31/20 10:34 [facility] Past Medical History Medical History Arthralgia Asthma Coronary artery disease GERD (gastroesophageal reflux disease) GI bleed Hyperlipidemia Hypertension Left inguinal hernia Osteoarthritis Family History Family History Other CAD (coronary artery disease) Family history of problems with anesthesia: No Surgical History Surgical History History of colonoscopy History of Problems with Anesthesia: No Social History Social History Household Members: Spouse Housing: Apartment Alcohol intake: former Smoking Status: Former smoker Tobacco Type: Cigarette Second Hand Smoke Exposure: No Use of substances other than those prescribed or required for medical reasons: No Advance Directives: No Advance Directives Information Provided: No Advance Directives on File: No service: No Current occupational status: disabled Meds Allergies Allergy/AdvReac Type Severity Reaction Status Date / Time No Known Allergies Allergy Verified 04/25/20 10:24 Home Medications Medication Instructions Recorded Confirmed Type aspirin 1 tab PO DAILY 04/10/20 04/10/20 History cholecalciferol (vitamin D3) 1 cap PO DAILY 04/10/20 04/10/20 History [Vitamin D3] lisinopril 1 tab PO DAILY 04/10/20 04/10/20 History metoprolol succinate 1 tab PO DAILY 04/10/20 04/10/20 History omeprazole 1 cap PO QAM 04/10/20 04/10/20 History rosuvastatin 1 tab PO BEDTIME 04/10/20 04/10/20 History sertraline 1 tab PO DAILY 04/10/20 04/10/20 History Exam Height,Weight and Vital Signs: Vital Signs Temp Pulse Resp BP Pulse Ox 05/31/20 10:20 97.0 F 57 18 121/69 99 Airway Mallampati Class: III TM Dist: >3cm Neck ROM: Full Heart: RRR Lungs: CTAB Assessment and Plan Assessment Anesthesia Assessment: Anesthesia Plan Discussed and Chart Reviewed Final Anesthetic Review NPO: Yes ASA Class: III Final Preanesthetic Review: No Changes in Pt Med Stat, Meds/Allgs Chart Rev iewed, Consent Obtained/Reviewed and Anes Risks/Benef Reviewed Patient Risk: Intermediate Procedure Risk: Low Assessment/Block/Sedation in SS: Assess/Block/Sedation-SS Anesthetic Plan Anesthetic Plan: GA Disposition: Standard PACU
[2020-05-31] VITALS (7 sets, daily range): BP systolic 121–129; BP diastolic 67–74; PULSE 57–74; RESP 14–18; TEMP 36.1–36.7; O2SAT 97–100
[2020-05-31] MEDS: ceFAZolin Sodium/Dextrose,Iso 2 GM/50 ML PIGGYBACK IV (10:24)
--- NOTE | 2020-05-31 10:26 | MHC.SHP ---
Pre-Procedural Eval Section B Chief Complaint: unilateral inguinal hernia w/o obstruction Details of Present Illness: for repair of LIH Relevant Family History (Specify if Yes): No Relevant Social History: Alcohol Use Present Medications: see Short Stay Collaborative assessment Medical History: Significant History (HTN, CAD, hyperlipidemia) History of Previous Operations: No relevant previous surgery Allergies: Allergies Allergy/AdvReac Type Severity Reaction Status Date / Time No Known Allergies Allergy Verified 04/25/20 10:24 Review of Systems Sugical H&P ROS: Negative: Constitution, Cardiovascular, Respiratory, Neurological, Psychiatric, Hem-Onc, Allergic/Immunologic, Gastrointestinal, Genitourinary, Musculoskeletal, Integumentary, Endocrine and Eyes/Ears/Nose/Throat Exam Surgical H&P Exam: Normal: HEENT, Normal: Heart, Normal: Lungs, Normal: Extremities, Normal: Skin and Normal: Neurological and Significant Findings: Abdomen (LIH reducible) Plan Diagnosis/Plan: Unchanged I have reviewed the history and physical and performed a pertinent physical examination on my patient. No changes have occurred unless specified.
--- NOTE | 2020-05-31 10:43 | PC.NURSE ---
PATIENT RECEIVING A LEFT ILEO INGUINAL NERVE BLOCK AT BEDSIDE BY DR. ANNE.
[2020-05-31] MEDS: Lactated Ringers 1,000 ML 100 ML IVCONT (10:46)
--- NOTE | 2020-05-31 12:02 | P.BOP_ITS ---
Brief Operative Note Date of Service: 05/31/20 Pre-op diagnosis: LIH Post-op diagnosis: same Procedure: repair of LIH w/ mesh Implants: mesh Surgeon: Emeka Cole MD Anesthesia: GLMA Grain Cleaner And Transfer Operator: Monserrat Kilpatrick Estimated blood loss (mL): 20 Pathology: other (hernia sac) Condition: stable Disposition: PACU
[2020-05-31] MEDS: Acetaminophen 325 MG TABLET 650 MG PO (12:35)
--- NOTE | 2020-05-31 12:55 | OP_ITS ---
SURGEON: Emeka Cole MD INDICATIONS: The patient is a 59-year-old male with a reducible mass in the left groin consistent with left inguinal hernia. In view of symptoms, he wanted to proceed with repair. He understood the technique of repair with mesh. He is aware of the risks, benefits, and alternatives. PREOPERATIVE DIAGNOSIS: Left inguinal hernia. POSTOPERATIVE DIAGNOSIS: Left inguinal hernia, indirect. PROCEDURE PERFORMED: Repair of left inguinal hernia with mesh and plug. ESTIMATED BLOOD LOSS: COMPLICATIONS: ANESTHESIA: ASSISTANTS: Monserrat Kilpatrick PA-C. SPECIMENS: DESCRIPTION OF PROCEDURE: He was brought to the operating room and placed supine on the operating table under anesthesia via laryngeal mask airway. The left groin was prepped as usual sterile fashion. A surgical time-out was done. The patient received cefazolin 2 g IV preoperatively. I marked the planned line of incision along an imaginary line from the anterior-superior iliac spine to the pubic ramus. I made a short incision using blade 15. This was carried down to full-thickness of skin and subcutaneous fat. The patient actually had thick amount of subcutaneous fat, so we had to do lot of dissection before we were able to visualize the external oblique aponeurosis. We had to use small Steele retractors to retract the thick subcutaneous fat to expose the external oblique aponeurosis. We bluntly dissected this area to visualize the external ring. The external oblique aponeurosis was then divided along its fibers near the external ring and this was extended inferomedially to connect with external ring. The inguinal canal was therefore entered. Hemostats were applied on each side of the divided external oblique aponeurosis. We gently did blunt dissection of the underside of the aponeurosis to create a pocket for the mesh. I then proceeded to do blunt dissection with my index finger around the spermatic cord and its contents. I had to do this carefully in view of the thick amount of fat as well as a large fatty contents of the sac. We eventually was able to pass a Trinity drain around this, which was used for traction. We then gently dissected the cord and its contents using a forceps. By doing so, I was able to clearly visualize the vas deferens along its accompanying vessels as well as the sac. We gently dissected the sac off the rest of the cord contents until we were able to reduce this to the internal ring. This was a large sac and contained fat. I twisted the sac sequentially and applied a clamp at the base near the internal ring. I applied suture ligature using Dexon 2-0 around the sac below the clamp and divided the sac above the clamp. This was sent as specimen as the hernia sac. We then proceeded to then reduce the rest of the sac through the internal ring. The internal ring was reinforced with large sized plug. The plug was secured with Prolene 2-0 suture to shelving edge of the inguinal and laterally, and the internal oblique superiorly and medially. I then used keyhole mesh to reinforce the floor of the canal. The tails of the mesh were passed around the cord at the level of internal ring and were secured together with prolene 2-0 sutures. I then proceeded to flatten the mesh on the floor of the canal. The mesh was secured with Dexon 2-0 sutures to shelving edge of the inguinal and laterally, and internal oblique superiorly medially and to the pubic ramus inferomedially. Again, this was done using the Prolene 2-0 sutures. I copiously irrigated and observed for hemostasis. It was a little oozy in the beginning, but after observation for about a minute, we had confirmed good hemostasis. We proceeded then to remove the Ale drain and closed the external oblique aponeurosis running Dexon 2-0 stitch to re-create the external ring. The thick subcutaneous layer was reapposed with Dexon 3-0 sutures. Skin closure achieved with Dexon 4-0 subcuticular running stitch. Steri-Strips and dressings were applied. The patient tolerated the procedure well. There were no complications noted. Initial and final counts of sponges and instruments were correct. Estimated blood loss was about 20 mL. The patient was extubated and transferred to recovery room with stable vital signs. MD TYLER Wray/ROSA / [id number]
--- NOTE | 2020-05-31 14:03 | HO.POSTANES ---
Post Anesthesia Evaluation Post Anesthesia Evaluation Vital Signs: Vital Signs Temp Pulse Resp BP Pulse Ox 05/31/20 12:51 98.0 F 72 18 123/67 98 05/31/20 12:36 71 18 129/74 97 05/31/20 12:23 68 16 123/70 100 05/31/20 12:18 74 16 126/71 100 05/31/20 12:13 65 14 122/67 100 05/31/20 12:08 97.9 F 69 14 127/71 100 05/31/20 10:20 97.0 F 57 18 121/69 99 Anesthesia: General LMA Mental Status: Awake Pain Control: Satisfactory Nausea/Vomiting: None Hydration: Adequate Anesthesia-Related Issues: No Anes. Related Issues
== END 2020-05-31 13:40 | disposition home or self-care (01) ==
PROVIDERS: PCP Internal Medicine; Visit Provider Surgery
PROC: (CPT 49505; principal; 2020-05-31 11:20)
DX: K40.90 Unilateral inguinal hernia, without obstruction or gangrene, not specified as recurrent (principal); K21.9 Gastro-esophageal reflux disease without esophagitis; I10 Essential (primary) hypertension; I25.10 Atherosclerotic heart disease of native coronary artery without angina pectoris; J45.909 Unspecified asthma, uncomplicated; Z87.891 Personal history of nicotine dependence; Z79.82 Long term (current) use of aspirin; Z79.899 Other long term (current) drug therapy; Z87.19 Personal history of other diseases of the digestive system
CPT/HCPCS: 49505; 88302; C1781; J0690; J2250; J2370; J3010

== ENCOUNTER → 2020-06-20 15:40 | Outpatient (BNVA) | payer OTHER, SELFPAY | PROVIDERS: PCP Internal Medicine; Visit Provider Surgery | DX: K40.90 Unilateral inguinal hernia, without obstruction or gangrene, not specified as recurrent (principal) | CPT/HCPCS: 99212 ==

== ENCOUNTER 2021-02-24 10:13 | Outpatient (REF) | payer OTHER, SELFPAY ==
--- NOTE | ~2021-02-24 | XR_ITS ---
EXAMINATION: XR KNEE, BILATERAL CLINICAL INFORMATION: Bilateral knee pain. COMPARISON: Bilateral knees 11/05/2016 TECHNIQUE: 3 views each knee. FINDINGS: Left knee: Again seen are tricompartmental degenerative changes with narrowing of all compartments as well as osteophytes. The rounded osseous body seen previously and thought to represent a loose intra-articular body still remains in place. No joint effusion is seen. No fracture is seen. No chondrocalcinosis. Right knee: Again seen are tricompartmental degenerative changes with narrowing of all compartments along with osteophyte formation. Tiny effusion seen previously is even smaller. Previously seen bony fragment behind the patella is not as well seen but may be positioned slightly higher (see batista image). XR/XR knee RT 3V IMPRESSION: Tricompartmental degenerative changes both knees with possible intra-articular loose osseous bodies, as described above. Appearances are fairly stable when compared to the prior study.
--- NOTE | ~2021-02-24 | XR_ITS ---
EXAMINATION: XR KNEE, BILATERAL CLINICAL INFORMATION: Bilateral knee pain. COMPARISON: Bilateral knees 11/05/2016 TECHNIQUE: 3 views each knee. FINDINGS: Left knee: Again seen are tricompartmental degenerative changes with narrowing of all compartments as well as osteophytes. The rounded osseous body seen previously and thought to represent a loose intra-articular body still remains in place. No joint effusion is seen. No fracture is seen. No chondrocalcinosis. Right knee: Again seen are tricompartmental degenerative changes with narrowing of all compartments along with osteophyte formation. Tiny effusion seen previously is even smaller. Previously seen bony fragment behind the patella is not as well seen but may be positioned slightly higher (see batista image). XR/XR knee LT 3V IMPRESSION: Tricompartmental degenerative changes both knees with possible intra-articular loose osseous bodies, as described above. Appearances are fairly stable when compared to the prior study.
== END 2021-02-24 10:14 | disposition home or self-care (01) ==
LOC: HO.XRAY 10:13
PROVIDERS: PCP Internal Medicine; Visit Provider Physical Medicine & Rehabilitation
DX: M25.562 Pain in left knee (principal); M25.561 Pain in right knee
CPT/HCPCS: 73562

== ENCOUNTER 2021-04-17 09:58 | Outpatient (REF) | payer OTHER, SELFPAY ==
--- NOTE | ~2021-04-17 | XR_ITS ---
EXAMINATION: XR LUMBOSACRAL SPINE WITH OBLIQUES CLINICAL INFORMATION: Lumbago with sciatica, left side COMPARISON: MRI 09/21/2015 TECHNIQUE: AP, both oblique, and lateral views of the lumbar spine. Lateral view of the lumbosacral junction. FINDINGS: There is no fracture or subluxation. Vertebral body height and alignment maintained. Disc spaces are maintained. Endplate osteophytes are seen throughout the lumbar spine. Multilevel mild facet arthropathy. The sacroiliac joints are symmetric. The sacrum is intact. Normal bowel gas pattern. XR/XR lumbar spine 4V min IMPRESSION: Mild degenerative changes throughout the lumbar spine.
== END 2021-04-17 09:59 | disposition home or self-care (01) ==
LOC: HO.XRAY 09:58
PROVIDERS: PCP Internal Medicine; Visit Provider Internal Medicine
DX: M54.42 Lumbago with sciatica, left side (principal)
CPT/HCPCS: 72110

== ENCOUNTER 2021-06-14 11:57 | Emergency (ER) | payer OTHER, SELFPAY ==
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
[2021-06-14 12:04] VITALS: BP 122/70; PULSE 56; RESP 18; TEMP 36.7; O2SAT 99; BMI 35.4
[2021-06-14] MEDS: Acetaminophen 325 MG TABLET 975 MG PO (12:56)
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
[2021-06-14 14:30] VITALS: RESP 17
[2021-06-14 15:00] VITALS: BP 96/55; PULSE 55; RESP 16; O2SAT 99
[2021-06-14 15:42] VITALS: BP 100/59
== END 2021-06-14 17:25 | disposition home or self-care (01) ==
PROVIDERS: Emergency Provider Emergency Medicine; PCP Internal Medicine
DX: S13.4XXA Sprain of ligaments of cervical spine, initial encounter (principal); S89.92XA Unspecified injury of left lower leg, initial encounter; S89.91XA Unspecified injury of right lower leg, initial encounter; S49.91XA Unspecified injury of right shoulder and upper arm, initial encounter; S49.92XA Unspecified injury of left shoulder and upper arm, initial encounter; M54.50 Low back pain, unspecified; M79.605 Pain in left leg; M79.604 Pain in right leg; M25.512 Pain in left shoulder; M25.511 Pain in right shoulder; V43.62XA Car passenger injured in collision with other type car in traffic accident, initial encounter; Y93.9 Activity, unspecified; Y92.410 Unspecified street and highway as the place of occurrence of the external cause; Y99.9 Unspecified external cause status; Z79.899 Other long term (current) drug therapy; Z79.82 Long term (current) use of aspirin
CPT/HCPCS: 72100; 72125; 73030; 73521; 99284

== ENCOUNTER 2021-09-25 12:53 | Emergency (ER) | payer OTHER, SELFPAY ==
[2021-09-25] VITALS (7 sets, daily range): BP systolic 102–126; BP diastolic 60–84; PULSE 52–74; RESP 12–18; TEMP 35.7–36.7; O2SAT 97–100; BMI 34.1; BMI 34.5; BMI 34.0
--- NOTE | ~2021-09-25 | XR_ITS ---
EXAMINATION: XR CHEST CLINICAL INFORMATION: Chest pain COMPARISON: 04/10/2020 TECHNIQUE: Frontal view of the chest was obtained. FINDINGS: No significant abnormality is noted involving the heart, lungs, mediastinum, bony thorax or soft tissues. XR/XR chest 1V IMPRESSION: Unremarkable examination.
--- NOTE | 2021-09-25 12:55 | ECG_ITS ---
Test Reason : CHEST PAIN Blood Pressure : / mmHG Vent. Rate : 066 BPM Atrial Rate : 066 BPM P-R Int : 180 ms QRS Dur : 082 ms QT Int : 404 ms P-R-T Axes : 033 041 030 degrees QTc Int : 423 ms Normal sinus rhythm Normal ECG When compared with ECG of 10-APR-2020 13:55, No significant changes seen Referred By: Ghulam Schwarz Electronically Signed By:RIGOBERTO PEREZ
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
--- NOTE | 2021-09-25 13:41 | ED_ITS ---
HPI - Chest Pain General Chief Complaint: Chest Pain Stated Complaint: L CP REPRODUCIBLE Time Seen by Provider: 09/25/21 13:28 Source: patient Mode of arrival: EMS Limitations: no limitations History of Present Illness HPI narrative: 61-year-old male who presents emergency department for evaluation of chest pain. The patient states that the pain came on gradually approximately 30 minutes prior to evaluation he points to his left chest when asked to localize the pain. He states that the pain feels like a knife like pain that radiates to his back, his left shoulder and to his left elbow. He states that he does feel dizzy with the pain. He denied shortness of breath, dyspnea on exertion, nausea, vomiting or diaphoresis Associated with the pain. He states that the pain was greater than 10/10 on on sent is now 8/10. the patient states that the chest pain is similar to his myocardial infarction pain, he has had 6 myocardial infarctions with the last HI being 2 years prior. Patient took his morning medications including 1 aspirin 81 mg, paramedics gave him aspirin 324 mg to chew. Patient states he did lift a heavy object yesterday and believes that he may have strained his chest. Related Data Home Medications Medication Instructions Recorded Confirmed aspirin 81 mg tablet,delayed 1 tab PO DAILY 04/10/20 06/20/20 release cholecalciferol (vitamin D3) 50 1 cap PO DAILY 04/10/20 06/20/20 mcg (2,000 unit) capsule (Vitamin D3) lisinopril 20 mg tablet 1 tab PO DAILY 04/10/20 06/20/20 metoprolol succinate 25 mg 1 tab PO DAILY 04/10/20 06/20/20 tablet,extended release 24 hr omeprazole 20 mg capsule,delayed 1 cap PO QAM 04/10/20 06/20/20 release rosuvastatin 40 mg tablet 1 tab PO BEDTIME 04/10/20 06/20/20 sertraline 100 mg tablet 1 tab PO DAILY 04/10/20 06/20/20 Previous Rx's Medication Instructions Recorded heparin (porcine) 25,000 unit/250 25,000 unit (250 mL) CONTINUOUS IV 04/11/20 mL in 0.45 % sodium chloride IV INFUSION .Q0M #1 ml soln heparin (porcine) 5,000 unit/mL 0 unit (0 mL) IVPUSH BOLUS PRN #1 04/11/20 injection solution ml oxycodone-acetaminophen 5 mg-325 1 - 2 tab PO Q4-6H PRN #30 tab 05/31/20 mg tablet (Percocet) Allergies Allergy/AdvReac Type Severity Reaction Status Date / Time No Known Allergies Allergy Verified 04/25/20 10:24 Review of Systems Review of Systems: Yes all other systems are reviewed and are negative [facility] Past Medical History [facility] Narrative: Social history: He denies tobacco, alcohol and drug use. Medical History Arthralgia Asthma Coronary artery disease GERD (gastroesophageal reflux disease) GI bleed Hyperlipidemia Hypertension Left inguinal hernia Osteoarthritis Surgical History History of colonoscopy Family History Family History Other CAD (coronary artery disease) Social History Social History Household Members: Spouse Housing: Apartment Do you presently have visiting nurse or other home services: Yes ([employer]) Alcohol intake: former Second Hand Smoke Exposure: No Advance Directives: No Advance Directives Information Provided: No service: No Current occupational status: disabled Physical Exam Vital Signs: Vital Signs: Last Vital Signs Temp 98.0 F 09/25/21 19:39 Pulse 63 09/25/21 19:39 Resp 16 09/25/21 19:39 BP 118/68 09/25/21 19:39 Pulse Ox 100 09/25/21 19:39 BMI result Body Mass Index 34.1 Const: General: cooperative and no acute distress Orientation/consciousness: oriented to person and oriented to place Limitations: no limitations HEENT: Head: Yes normal to inspection, Yes normocephalic and Yes atraumatic Ears: external ears normal General nose exam: Normal external nose present Face and sinus: Yes normal facial exam Mouth: Normal oral and palatal mucosa present Throat: Yes posterior oropharynx normal Eyes: General: appearance normal, both eyes and all related structures Pupils: Equal, round and reactive pupils present Neck: Neck: Yes normal visual inspection, Yes no lymphadenopathy, Yes trachea midline and Yes supple Chest: Chest palpation & inspection: normal inspection of the chest and tenderness ( Moderate, left anterior chest) Resp: Effort & Inspection: normal respiratory effort and able to speak in complete sentences Auscultation: clear to auscultation bilaterally Cardio: Rate: regular rate Rhythm: regular rhythm Heart sounds: S1 normal heart sound present, S2 normal heart sound present and no murmurs GI: Inspection: Yes normal to inspection Palpation (GI): Soft to palpation, nontender and no guarding Auscultation: normal bowel sounds : General: Yes no CVA tenderness Back/Spine/Pelvis: Back: no CVA tenderness Skin: General skin exam: no rashes or lesions noted Neuro: General: oriented to person and oriented to place Cranial nerves: Yes CN's II-XII intact bilaterally and Yes Equal, round and reactive pupils present Cognition (Neuro): normal cognition Motor exam (neuro): 5/5 motor strength present throughout Extrem: General: Yes normal to inspection Psych: Appearance: grossly normal Speech and movement: Normal speech and movement present Affect: normal affect Attitude: cooperative Thought process: Normal thought process present Thought content: Normal thought content present Course Course Course Narrative: 61-year-old male who presents emergency department for evaluation gradual onset of left-sided chest pain that started 30 minutes prior to coming to the emergency department, patient describes the pain as a knife-like pain and points to his anterior chest, the pain does radiate to his back, left shoulder and left elbow, the pain is similar to his previous myocardial infarction pain. His last HI was 2 years prior. He states that he does feel dizzy but otherwise has no other complaints. At the time my evaluation, patient's pain was 8/10. Vital signs did reveal low temperature of 96.2 degrees otherwise unremarkable. He does have left-sided chest wall tenderness to palpation. I did order laboratory evaluation, EKG and chest x-ray. the patient's pain will be treated with morphine 4 mg IV. 1910: Data evaluation: High sensitive troponin I was slightly elevated at 30.8. Chest x-ray was unremarkable. Twelve EKG was unremarkable. The patient refused the IV morphine, he states that his pain resolved and he did not need the medication. the patient's 1st troponin was detectable but not elevated at 30.4 and his repeat troponin was 10,964. the patient has been pain-free since he has been here in the emergency department and I am not sure if this value is revealed therefore I will repeat it make sure that this is not a lab error. I did discuss the patient's presentation with our covering health and fitness professor, Dr. Lamar he felt that the patient should be transferred to [facility] therefore I will talk to the health and fitness professor service at [facility]. 2014: I did discuss the patient with the Cardiology attending at [facility], Dr. Gotti who did accept the patient to their PCU For further management of NSTEMI. He did recommend heparin and starting nitroglycerin at 30 micrograms/minute. 2038: The patient's repeat troponin 1 hour after the last troponin at 19:38 increase to 17,961. at the end of my shift, the patient's care was turned over to my colleague, Dr. Loredo. The patient will be transferred to [facility] as soon as a PCU bed is available. MDM - Chest Pain Lab Data Result diagrams: 09/25/21 13:51 09/25/21 13:50 Labs: Lab Results 09/25/21 09/25/21 09/25/21 Range/Units 13:50 13:50 13:50 WBC (4.8-10.8) X10*3/uL RBC (4.60-5.80) X10*6/uL Hgb (14.0-18.0) g/dl Hct (42.0-52.0) % MCV (80.0-98.0) fL MCH (27.0-33.0) pg MCHC (31.0-36.0) g/dl RDW (11.0-16.0) % Plt Count (160-400) X10*3/uL MPV (9.4-12.4) fL Immature Gran % (Auto) (0.0-0.4) % Neut % (Auto) (45-73) % Lymph % (Auto) (20-40) % [place] % (Auto) (2-11) % Eos % (Auto) (0-4) % Baso % (Auto) (0-2) % Lymph # (Auto) (1.2-4.9) X10*3/uL [place] # (Auto) (0.1-1.2) X10*3/uL Eos # (Auto) (0.0-0.4) X10*3/uL Baso # (Auto) (0.0-0.2) X10*3/uL Abs Immat Gran (auto) (0.00-0.03) X10*3/uL Absolute Neuts (auto) (2.0-8.3) x10*3/uL Absolute Nucleated RBC (0.0-0.012) X10*3/uL Nucleated RBC % (auto) (0.0-0.2) /100WBC PT 12.1 (9.9-13.0) SEC INR 1.1 (0.9-1.1) APTT 34.5 (24.1-38.0) SEC Sodium 137 (135-145) mmol/L Potassium 4.1 (3.3-5.1) mmol/L Chloride 106 (96-108) mmol/L Carbon Dioxide 24 (22-29) mmol/L Anion Gap 11 L (12-20) BUN 17 H (9-16) mg/dL Creatinine 1.28 (0.5-1.4) mg/dL Estim Creat Clear Calc 57.7 Estimated GFR 57 Random Glucose 113 (60-115) mg/dL Calcium 9.2 (8.4-10.2) mg/dL Total Bilirubin 0.6 (0.0-1.0) mg/dL AST 17 (5-37) U/L ALT 10 (0-40) U/L Alkaline Phosphatase 105 (39-117) U/L Troponin I High Sens (<3.5-35.0) ng/L B-Natriuretic Peptide 35 (<100) pg/mL Total Protein 6.8 (6.5-8.0) g/dL Albumin 3.8 (3.5-5.0) g/dL Lipase 51 (8-78) U/L COVID-19 (MARIELA) (Negative) COVID-19 Clin Com Influenza Type A (SUSAN) (Negative) Influenza Type B (SUSAN) (Negative) Influenza A & B Note 09/25/21 09/25/21 09/25/21 Range/Units 13:50 13:51 15:29 WBC 11.3 H (4.8-10.8) X10*3/uL RBC 4.56 L (4.60-5.80) X10*6/uL Hgb 12.8 L (14.0-18.0) g/dl Hct 39.7 L (42.0-52.0) % MCV 87.1 (80.0-98.0) fL MCH 28.1 (27.0-33.0) pg MCHC 32.2 (31.0-36.0) g/dl RDW 14.0 (11.0-16.0) % Plt Count 252 (160-400) X10*3/uL MPV 9.7 (9.4-12.4) fL Immature Gran % (Auto) 0.5 H (0.0-0.4) % Neut % (Auto) 74.5 H (45-73) % Lymph % (Auto) 15.3 L (20-40) % [place] % (Auto) 7.6 (2-11) % Eos % (Auto) 1.7 (0-4) % Baso % (Auto) 0.4 (0-2) % Lymph # (Auto) 1.7 (1.2-4.9) X10*3/uL [place] # (Auto) 0.9 (0.1-1.2) X10*3/uL Eos # (Auto) 0.2 (0.0-0.4) X10*3/uL Baso # (Auto) 0.0 (0.0-0.2) X10*3/uL Abs Immat Gran (auto) 0.06 H (0.00-0.03) X10*3/uL Absolute Neuts (auto) 8.4 H (2.0-8.3) x10*3/uL Absolute Nucleated RBC 0.000 (0.0-0.012) X10*3/uL Nucleated RBC % (auto) 0.0 (0.0-0.2) /100WBC PT (9.9-13.0) SEC INR (0.9-1.1) APTT (24.1-38.0) SEC Sodium (135-145) mmol/L Potassium (3.3-5.1) mmol/L Chloride (96-108) mmol/L Carbon Dioxide (22-29) mmol/L Anion Gap (12-20) BUN (9-16) mg/dL Creatinine (0.5-1.4) mg/dL Estim Creat Clear Calc Estimated GFR Random Glucose (60-115) mg/dL Calcium (8.4-10.2) mg/dL Total Bilirubin (0.0-1.0) mg/dL AST (5-37) U/L ALT (0-40) U/L Alkaline Phosphatase (39-117) U/L Troponin I High Sens 30.4 (<3.5-35.0) ng/L B-Natriuretic Peptide (<100) pg/mL Total Protein (6.5-8.0) g/dL Albumin (3.5-5.0) g/dL Lipase (8-78) U/L COVID-19 (MARIELA) Negative (Negative) COVID-19 Clin Com See Note Influenza Type A (SUSAN) (Negative) Influenza Type B (SUSAN) (Negative) Influenza A & B Note 09/25/21 09/25/21 09/25/21 Range/Units 15:29 18:21 19:38 WBC (4.8-10.8) X10*3/uL RBC (4.60-5.80) X10*6/uL Hgb (14.0-18.0) g/dl Hct (42.0-52.0) % MCV (80.0-98.0) fL MCH (27.0-33.0) pg MCHC (31.0-36.0) g/dl RDW (11.0-16.0) % Plt Count (160-400) X10*3/uL MPV (9.4-12.4) fL Immature Gran % (Auto) (0.0-0.4) % Neut % (Auto) (45-73) % Lymph % (Auto) (20-40) % [place] % (Auto) (2-11) % Eos % (Auto) (0-4) % Baso % (Auto) (0-2) % Lymph # (Auto) (1.2-4.9) X10*3/uL [place] # (Auto) (0.1-1.2) X10*3/uL Eos # (Auto) (0.0-0.4) X10*3/uL Baso # (Auto) (0.0-0.2) X10*3/uL Abs Immat Gran (auto) (0.00-0.03) X10*3/uL Absolute Neuts (auto) (2.0-8.3) x10*3/uL Absolute Nucleated RBC (0.0-0.012) X10*3/uL Nucleated RBC % (auto) (0.0-0.2) /100WBC PT (9.9-13.0) SEC INR (0.9-1.1) APTT (24.1-38.0) SEC Sodium (135-145) mmol/L Potassium (3.3-5.1) mmol/L Chloride (96-108) mmol/L Carbon Dioxide (22-29) mmol/L Anion Gap (12-20) BUN (9-16) mg/dL Creatinine (0.5-1.4) mg/dL Estim Creat Clear Calc Estimated GFR Random Glucose (60-115) mg/dL Calcium (8.4-10.2) mg/dL Total Bilirubin (0.0-1.0) mg/dL AST (5-37) U/L ALT (0-40) U/L Alkaline Phosphatase (39-117) U/L Troponin I High Sens 91664.4 H* D 26739.3 H* D (<3.5-35.0) ng/L B-Natriuretic Peptide (<100) pg/mL Total Protein (6.5-8.0) g/dL Albumin (3.5-5.0) g/dL Lipase (8-78) U/L COVID-19 (MARIELA) (Negative) COVID-19 Clin Com Influenza Type A (SUSAN) Negative (Negative) Influenza Type B (SUSAN) Negative (Negative) Influenza A & B Note See Note Critical Care Time Critical Care Time Critical Care Time: Yes Total Critical Care Time: 55 Attestation: Critical Care: The patient was critically ill with a high probability of imminent or life threatening deterioration. I spent greater than 30 minutes of discontinuous time evaluating the patient,delivering critical care at the bedside, discussing and evaluating pertinent data with consultants. Critical care time does not include time spent performing separately billable procedures or teaching. Total time spent performing critical care was 55 minutes. Discharge Plan Discharge Clinical Impression: Chest pain, Acute non-ST elevation myocardial infarction (NSTEMI) Patient Disposition: Still a Patient Instructions: Chest Wall Pain (ED) Prescriptions: No Action oxycodone-acetaminophen [Percocet] 5-325 mg tablet 1 - 2 tab PO Q4-6H PRN (Reason: pain) Qty: 30 0RF lisinopril 20 mg tablet 1 tab PO DAILY 0RF sertraline 100 mg tablet 1 tab PO DAILY 0RF aspirin 81 mg tablet,delayed release (DR/EC) 1 tab PO DAILY 0RF omeprazole 20 mg capsule,delayed release(DR/EC) 1 cap PO QAM 0RF metoprolol succinate 25 mg tablet extended release 24 hr 1 tab PO DAILY 0RF rosuvastatin 40 mg tablet 1 tab PO BEDTIME 0RF cholecalciferol (vitamin D3) [Vitamin D3] 50 mcg (2,000 unit) capsule 1 cap PO DAILY 0RF heparin(porcine) in 0.45% NaCl 25,000 unit/250 mL Parenteral Solution 25,000 unit continuous IV infusion .Q0M Qty: 1 0RF heparin (porcine) 5,000 unit/mL Solution 0 unit IVPUSH BOLUS PRN (Reason: HEPARINPR8) Qty: 1 0RF
[2021-09-25 13:54] LABS: MANUAL DIFF FLAG NO
[2021-09-25 13:56] LABS: Basophils Percent Auto 0.4 % (0-2); Eosinophils Absolute Auto 0.2 X10*3/uL (0.0-0.4); Eosinophils Percent Auto 1.7 % (0-4); Hematocrit 39.7 % (42.0-52.0); Hemoglobin 12.8 g/dl (14.0-18.0); Imm Gran Abs Auto 0.06 X10*3/uL (0.00-0.03); Imm Gran Pct Auto 0.5 % (0.0-0.4); Lymphocytes Absolute Auto 1.7 X10*3/uL (1.2-4.9); Lymphocytes Percent Auto 15.3 % (20-40); Mean Corpuscular HGB Conc 32.2 g/dl (31.0-36.0); Mean Corpuscular Hemoglobin 28.1 pg (27.0-33.0); Mean Corpuscular Volume 87.1 fL (80.0-98.0); Mean Platelet Volume 9.7 fL (9.4-12.4); Monocytes Absolute Auto 0.9 X10*3/uL (0.1-1.2); Monocytes Percent Auto 7.6 % (2-11); Neutrophils Absolute Auto 8.4 x10*3/uL (2.0-8.3); Neutrophils Percent Auto 74.5 % (45-73); Platelet Count 252 X10*3/uL (160-400); Red Blood Count 4.56 X10*6/uL (4.60-5.80); White Blood Count 11.3 X10*3/uL (4.8-10.8)
[2021-09-25 14:01] LABS: INTERNATIONAL NORM RATIO 1.1 (0.9-1.1); Prothrombin Time 12.1 SEC (9.9-13.0)
[2021-09-25 14:04] LABS: Partial Thromboplastin Time 34.5 SEC (24.1-38.0)
[2021-09-25 14:14] LABS: Alanine Aminotransferase 10 U/L (0-40); Albumin Level 3.8 g/dL (3.5-5.0); Alkaline Phosphatase 105 U/L (39-117); Anion Gap 11 (12-20); Aspartate Amino Transferase 17 U/L (5-37); Bilirubin Total 0.6 mg/dL (0.0-1.0); Blood Urea Nitrogen 17 mg/dL (9-16); Calcium 9.2 mg/dL (8.4-10.2); Carbon Dioxide 24 mmol/L (22-29); Chloride 106 mmol/L (96-108); Creatinine Clr Calc Pharmacy 57.7; Estimated Glomerular Filt Rate 57; Glucose Random 113 mg/dL (60-115); Lipase 51 U/L (8-78); Potassium 4.1 mmol/L (3.3-5.1); Sodium 137 mmol/L (135-145); Total Protein 6.8 g/dL (6.5-8.0)
[2021-09-25 14:20] LABS: B Type Natriuretic Peptide 35 pg/mL (<100); Troponin-I High Sensitivity 30.4 ng/L (<3.5-35.0)
--- NOTE | 2021-09-25 15:24 | PC.NURSE ---
Pt denies pain or nausea at this time. Morphine and zofrn held.
[2021-09-25 15:55] LABS: COVID-19 Test Negative (Negative); IDNOW Serial# 16C4AD1C; IDNOW Serial# 9DB6401D; Influenza A Negative (Negative); Influenza B2 Negative (Negative)
--- NOTE | 2021-09-25 19:15 | ECG_ITS ---
Test Reason : REPEAT Blood Pressure : / mmHG Vent. Rate : 046 BPM Atrial Rate : 046 BPM P-R Int : 176 ms QRS Dur : 078 ms QT Int : 462 ms P-R-T Axes : 024 046 043 degrees QTc Int : 404 ms Sinus bradycardia Otherwise normal ECG When compared with ECG of 25-SEP-2021 13:54, No significant change was found Referred By: Ghulam Schwarz Electronically Signed By:RIGOBERTO PEREZ
--- NOTE | 2021-09-25 19:54 | PC.NURSE ---
@1953 DR MCALLISTER REQUESTS CALL OUT TO [facility] [place] ALEK ANSWERS, TAKES PT INFO AND STAES SHE WILL CALL BACK FOR DR MCALLISTER
--- NOTE | 2021-09-25 20:03 | PC.NURSE ---
@ THIS TIME KATHY OF [facility] PT [place] LINE CALLS AND ASKS [place] WITH DR ARY MCALLISTER TAKES OVER CALL RIGHT AWAY
--- NOTE | 2021-09-25 20:22 | PC.NURSE ---
CALL RECEIVED FROM KATHY OF [facility] PT [place] LINE ASKING TO SPEAK WITH DR MCALLISTER @ THIS TIME DR MCALLISTER TAKES OVER CALL RIGHT AWAY
--- NOTE | 2021-09-25 20:38 | ECG_ITS ---
Test Reason : REPEAT Blood Pressure : / mmHG Vent. Rate : 053 BPM Atrial Rate : 053 BPM P-R Int : 158 ms QRS Dur : 076 ms QT Int : 452 ms P-R-T Axes : -01 048 040 degrees QTc Int : 424 ms Sinus bradycardia Otherwise normal ECG When compared with ECG of 25-SEP-2021 19:12, No significant change was found Referred By: Ghulam Schwarz Electronically Signed By:RIGOBERTO PEREZ
[2021-09-25] MEDS: Heparin Sodium,Porcine 5,000 UNIT/ML VIAL 4000 UNIT IVPUSH (21:12)
[2021-09-25] MEDS: Heparin Sodium,Porcine/1/2NS 25,000 UNIT/250 ML IV.SOLN 10 UNIT IVCONT (21:17)
[2021-09-25] MEDS: Nitroglycerin/D5W 100 MG/250 ML INFUS..BTL IVCONT (21:22)
--- NOTE | 2021-09-25 21:51 | PC.NURSE ---
CALL RECEIVED FROM [facility] [place] LINE @ THIS TIME W/ROOM ASSIGNMENT M5, ROOM 107 RN TO RN: [phone] STUART
--- NOTE | 2021-09-25 22:33 | PC.NURSE ---
Repot given to ESTELLE Metzger on M5 at [facility]. Patient A&OX4, NAD noted. Heparin drip infusing to PIV at 10ml/hr. SBP down to 90s, per verbal order from Dr Fernandes, Nitro drip on hold now. Paperwork including emtala transfer sent with patient.
== END 2021-09-25 22:38 | disposition still patient (30) ==
PROVIDERS: Emergency Provider Emergency Medicine Emergency Medical Services; PCP Internal Medicine
DX: R07.89 Other chest pain (principal); I21.4 Non-ST elevation (NSTEMI) myocardial infarction; M54.50 Low back pain, unspecified; R06.02 Shortness of breath; M25.512 Pain in left shoulder; R42 Dizziness and giddiness; Z20.822 Contact with and (suspected) exposure to COVID-19; Z79.899 Other long term (current) drug therapy
CPT/HCPCS: 36415; 71045; 80053; 83690; 83880; 84484; 85025; 85610; 85730; 87502; 87635; 93005; 96365; 96375; 99285; 99291

== ENCOUNTER → 2021-10-17 14:51 | Outpatient (BNVA) | payer OTHER, SELFPAY | PROVIDERS: PCP Internal Medicine; Referring Provider Internal Medicine; Visit Provider Nurse Practitioner Family | DX: I21.4 Non-ST elevation (NSTEMI) myocardial infarction (principal); I25.10 Atherosclerotic heart disease of native coronary artery without angina pectoris; Z98.890 Other specified postprocedural states | CPT/HCPCS: 99212; Q3014 ==

== ENCOUNTER 2022-03-06 10:38 | Outpatient (REF) | payer OTHER, SELFPAY ==
[2021-12-04 12:01] VITALS: BP 112/50; BP 118/62
[2022-03-01 08:14] VITALS: BP 100/64; BMI 32.9
[2022-03-06 11:43] LABS: Hematocrit 42.2 % (42.0-52.0); Hemoglobin 13.6 g/dl (14.0-18.0); Mean Corpuscular HGB Conc 32.2 g/dl (31.0-36.0); Mean Corpuscular Hemoglobin 28.8 pg (27.0-33.0); Mean Corpuscular Volume 89.4 fL (80.0-98.0); Mean Platelet Volume 10.5 fL (9.4-12.4); Platelet Count 244 X10*3/uL (160-400); Red Blood Count 4.72 X10*6/uL (4.60-5.80); Red Cell Distribution Width 14.1 % (11.0-16.0); White Blood Count 11.3 X10*3/uL (4.8-10.8)
== END 2022-03-06 10:39 | disposition home or self-care (01) ==
LOC: HO.LAB 10:38
PROVIDERS: PCP Internal Medicine; Visit Provider Internal Medicine
DX: K63.3 Ulcer of intestine (principal); Z79.02 Long term (current) use of antithrombotics/antiplatelets; Z87.19 Personal history of other diseases of the digestive system; Z86.010 Personal history of colon polyps; Z98.890 Other specified postprocedural states
CPT/HCPCS: 36415; 85027; 99212

== ENCOUNTER 2022-06-11 07:12 | Outpatient (REF) | payer OTHER, SELFPAY ==
[2022-03-15 07:26] VITALS: BP 104/58; BP 112/62; BMI 32.8
[2022-06-11 09:00] LABS: Alanine Aminotransferase 12 U/L (0-40); Aspartate Amino Transferase 18 U/L (5-37); Cholesterol 150 mg/dL; HDL Cholesterol 50 mg/dL; LDL Cholesterol Calculated 85 mg/dl; Triglycerides 79 mg/dL
== END 2022-06-11 07:13 | disposition home or self-care (01) ==
LOC: HO.LAB 07:12
PROVIDERS: PCP Internal Medicine; Visit Provider Internal Medicine Cardiovascular Disease
DX: E78.5 Hyperlipidemia, unspecified (principal)
CPT/HCPCS: 36415; 80061; 84450; 84460

== ENCOUNTER 2023-12-10 12:02 | Outpatient (REF) | payer OTHER, SELFPAY ==
[2022-03-15 07:26] VITALS: BP 104/58; BP 112/62; BMI 32.8
[2023-12-10 13:50] LABS: MANUAL DIFF FLAG NO
[2023-12-10 14:08] LABS: Basophils Absolute Auto 0.1 X10*3/uL (0.0-0.2); Basophils Percent Auto 0.9 % (0-2); Eosinophils Absolute Auto 0.5 X10*3/uL (0.0-0.4); Eosinophils Percent Auto 5.5 % (0-4); Hematocrit 42.6 % (42.0-52.0); Hemoglobin 13.9 g/dl (14.0-18.0); Imm Gran Abs Auto 0.02 X10*3/uL (0.00-0.03); Imm Gran Pct Auto 0.2 % (0.0-0.4); Lymphocytes Absolute Auto 2.7 X10*3/uL (1.2-4.9); Lymphocytes Percent Auto 31.5 % (20-40); Mean Corpuscular HGB Conc 32.6 g/dl (31.0-36.0); Mean Corpuscular Hemoglobin 29.6 pg (27.0-33.0); Mean Corpuscular Volume 90.6 fL (80.0-98.0); Mean Platelet Volume 10.1 fL (9.4-12.4); Monocytes Absolute Auto 0.8 X10*3/uL (0.1-1.2); Monocytes Percent Auto 9.5 % (2-11); Neutrophils Absolute Auto 4.5 x10*3/uL (2.0-8.3); Neutrophils Percent Auto 52.4 % (45-73); Platelet Count 249 X10*3/uL (160-400); Red Cell Distribution Width 13.3 % (11.0-16.0); White Blood Count 8.5 X10*3/uL (4.8-10.8)
[2023-12-10 14:28] LABS: Alanine Aminotransferase 8 U/L (0-40); Albumin Level 3.9 g/dL (3.5-5.0); Alkaline Phosphatase 84 U/L (39-117); Anion Gap 10 (12-20); Aspartate Amino Transferase 18 U/L (5-37); Bilirubin Total 0.6 mg/dL (0.0-1.0); Blood Urea Nitrogen 11 mg/dL (9-16); Calcium 9.4 mg/dL (8.4-10.2); Carbon Dioxide 24 mmol/L (22-29); Chloride 107 mmol/L (96-108); Cholesterol 131 mg/dL (<200); Estimated Glomerular Filt Rate > 60; Glucose Random 83 mg/dL (60-115); HDL Cholesterol 51 mg/dL (>40); LDL Cholesterol Calculated 66 mg/dL (<100); Potassium 3.8 mmol/L (3.3-5.1); Sodium 137 mmol/L (135-145); Triglycerides 70 mg/dL (<150)
== END 2023-12-10 12:03 | disposition home or self-care (01) ==
LOC: HO.HHCL 12:02
PROVIDERS: Visit Provider Nurse Practitioner Primary Care
DX: Z00.00 Encounter for general adult medical examination without abnormal findings (principal); I10 Essential (primary) hypertension; I25.119 Atherosclerotic heart disease of native coronary artery with unspecified angina pectoris; E78.5 Hyperlipidemia, unspecified
CPT/HCPCS: 36415; 80053; 80061; 85025

== ENCOUNTER 2024-03-04 18:06 | Emergency (ER) | payer OTHER, SELFPAY ==
[2022-03-15 07:26] VITALS: BP 104/58; BP 112/62; BMI 32.8
[2024-03-04] VITALS (9 sets, daily range): BP systolic 104–129; BP diastolic 56–80; PULSE 53–74; RESP 10–20; TEMP 36.8–37; O2SAT 97–100; BMI 31.4
--- NOTE | ~2024-03-04 | XR_ITS ---
EXAMINATION: XR CHEST CLINICAL INFORMATION: Chest pain COMPARISON: 09/25/2021 TECHNIQUE: Frontal view of the chest was obtained. FINDINGS: No focal consolidation, pulmonary edema, or pleural effusion. Stable cardiomediastinal silhouette. XR/XR chest 1V IMPRESSION: No acute cardiopulmonary findings. Electronically signed by: Bret Candelaria MD 03/04/2024 08:05 PM EDT RP
--- NOTE | 2024-03-04 18:23 | PC.NURSE ---
Pt comes to ED today via EMS for c/o chest pain x80 minutes. Pain is to L chest and is 9/10. VSS, A&Ox3, afebrile. Skin is warm and dry. Breaths and speech are unlabored. Speech is clear, concise unlabored. Denies N/V but c/o VARELA.
--- NOTE | 2024-03-04 18:32 | ECG_ITS ---
Test Reason : CHEST PAIN Blood Pressure : / mmHG Vent. Rate : 059 BPM Atrial Rate : 059 BPM P-R Int : 176 ms QRS Dur : 078 ms QT Int : 430 ms P-R-T Axes : 032 043 055 degrees QTc Int : 425 ms Sinus bradycardia Nonspecific ST abnormality Abnormal ECG When compared with ECG of 25-SEP-2021 21:09, No significant change was found Referred By: mEiliano Santacruz Electronically Signed By:Sin Polanco
[2024-03-04 19:12] LABS: Basophils Absolute Auto 0.1 X10*3/uL (0.0-0.2); Basophils Percent Auto 0.5 % (0-2); Eosinophils Absolute Auto 0.1 X10*3/uL (0.0-0.4); Eosinophils Percent Auto 0.7 % (0-4); Hematocrit 39.7 % (42.0-52.0); Hemoglobin 13.4 g/dl (14.0-18.0); Imm Gran Abs Auto 0.04 X10*3/uL (0.00-0.03); Imm Gran Pct Auto 0.3 % (0.0-0.4); Lymphocytes Absolute Auto 1.3 X10*3/uL (1.2-4.9); Lymphocytes Percent Auto 10.1 % (20-40); MANUAL DIFF FLAG NO; Mean Corpuscular HGB Conc 33.8 g/dl (31.0-36.0); Mean Corpuscular Volume 88.8 fL (80.0-98.0); Mean Platelet Volume 9.6 fL (9.4-12.4); Monocytes Absolute Auto 0.7 X10*3/uL (0.1-1.2); Monocytes Percent Auto 5.3 % (2-11); Neutrophils Absolute Auto 10.4 x10*3/uL (2.0-8.3); Neutrophils Percent Auto 83.1 % (45-73); Platelet Count 212 X10*3/uL (160-400); Red Blood Count 4.47 X10*6/uL (4.60-5.80); Red Cell Distribution Width 13.8 % (11.0-16.0); White Blood Count 12.6 X10*3/uL (4.8-10.8)
[2024-03-04] MEDS: Nitroglycerin 0.4 MG TAB.SUBL SUBLINGUAL (19:12)
--- NOTE | 2024-03-04 19:14 | ECG_ITS ---
Test Reason : cp Blood Pressure : / mmHG Vent. Rate : 056 BPM Atrial Rate : 056 BPM P-R Int : 178 ms QRS Dur : 072 ms QT Int : 442 ms P-R-T Axes : 030 047 054 degrees QTc Int : 426 ms Sinus bradycardia Otherwise normal ECG When compared with ECG of 04-MAR-2024 18:44, No significant change was found Referred By: Emiliano Santacruz Electronically Signed By:Sin Polanco
--- NOTE | 2024-03-04 19:14 | ED_ITS ---
HPI - Chest Pain General Chief Complaint: Chest Pain Stated Complaint: chest pain, hx of 6 MIs Time Seen by Provider: 03/04/24 18:30 History of Present Illness ED Provider: Noam HPI narrative: 63yo male with pmhx of CAD/NSTEMI status post stenting presenting for chest pain. Patient states that his chest pain began approximately 2 hours prior to coming to the emergency department. He states that this pain feels similar to his prior myocardial infarction. He denies shortness of breath and diaphoresis. Denies trauma. Just prior to onset of symptoms patient was reportedly given bad news Related Data Home Medications ?Medication ?Instructions ?Recorded ?Confirmed aspirin 81 mg tablet,delayed 81 mg PO DAILY 10/17/21 10/17/21 release cetirizine 10 mg tablet 10 mg PO DAILY 10/17/21 10/17/21 cholecalciferol (vitamin D3) 50 50 mcg PO DAILY 10/17/21 10/17/21 mcg (2,000 unit) capsule (Vitamin D3) lisinopril 20 mg tablet 20 mg PO DAILY 10/17/21 10/17/21 metoprolol succinate 50 mg 50 mg PO DAILY 10/17/21 10/17/21 tablet,extended release 24 hr montelukast 10 mg tablet 10 mg PO BEDTIME 10/17/21 10/17/21 omeprazole 20 mg capsule,delayed 20 mg PO QAM 10/17/21 10/17/21 release rosuvastatin 40 mg tablet 40 mg PO BEDTIME 10/17/21 10/17/21 sertraline 100 mg tablet 100 mg PO DAILY 10/17/21 10/17/21 ticagrelor 90 mg tablet (Brilinta) 90 mg PO BID 10/17/21 10/17/21 Previous Rx's ?Medication ?Instructions ?Recorded oxycodone-acetaminophen 5 mg-325 1 - 2 tab PO Q4-6H PRN pain #30 /19/21 mg tablet (Percocet) tabs Allergies Allergy/AdvReac Type Severity Reaction Status Date / Time No Known Allergies Allergy Verified 03/04/24 18:15 Review of Systems 2 Review of Systems: Patient endorses chest pain Yes all other systems are reviewed and are negative [facility] Past Medical History Attestation statement: The following information was validated with the patient. 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) Alcohol intake: former Patient Tobacco Use Status: Former Tobacco user Years Smoked: 8 +/- Smoked in Last 30 Days: No Second Hand Smoke Exposure: No Use of substances other than those prescribed or required for medical reasons: No Advance Directives: No Advance Directives Information Provided: No Do you have a plan to hurt others: No Plan service: No Current occupational status: disabled Physical Exam 2 Vital Signs: Vital Signs: Last Vital Signs Temp 98.3 F 03/04/24 19:23 Pulse 62 03/04/24 21:45 Resp 14 03/04/24 21:45 BP 121/56 L 03/04/24 21:45 Pulse Ox 98 03/04/24 21:45 O2 Del Method Room Air 03/04/24 21:45 BMI result Body Mass Index 31.4 Well-appearing Lungs clear to auscultation bilaterally Normal S1-S2 regular rate and rhythm No chest wall tenderness to palpation Abdomen is soft nontender nondistended Good distal pulses in both upper and lower extremities Medications Administered Generic Name Dose Route Start Last Admin Trade Name Freq PRN Reason Stop Dose Admin Heparin Sodium/Sodium Chloride 25,000 unit in 250 mls @ 0 mls/hr 03/04/24 21:45 03/04/24 21:47 Heparin Sodium,Porcine/1/2ns IVCONT 12 units/kg/hr .Q0M SINDHU 9.64 mls/hr Administration Protocol Per Protocol Discontinued Medications Generic Name Dose Route Start Last Admin Trade Name Freq PRN Reason Stop Dose Admin Heparin Sodium (Porcine) 4,000 unit 03/04/24 19:09 03/04/24 19:24 Heparin Sodium,Porcine 5,000 Unit/Ml Vial IVPUSH 03/04/24 19:10 4,000 unit ONCE ONE Administration Nitroglycerin 0.4 mg 03/04/24 19:03 03/04/24 19:12 Nitroglycerin 0.4 Mg Tab.Subl SUBLINGUAL 03/04/24 19:04 0.4 mg ONCE ONE Administration Ticagrelor 180 mg 03/04/24 19:09 03/04/24 19:24 Ticagrelor 90 Mg Tablet PO 03/04/24 19:10 180 mg ONCE ONE Administration Medical Decision Making Medical Decision Making [facility] Narrative: 63-year-old male presenting with chest pain. I am concerned for the following; ACS/angina -EKG and labs were ordered; patient already given aspirin in transport -I noted subtle ST elevation in inferior leads on EKG. I consulted our on-call nut sheller machine operator Dr. Polanco who agreed with EKG changes recommended heparin and Brilinta -given patient's history I felt that he should be transferred to [facility] however after talking to [facility] receiving associate Dr. Jameson, plan is to keep patient here and continue to monitor -1st troponin 35 and 2nd troponin 1800s; pt asymptomatic and EKGs have remained mostly unchanged subtle improvement -Dr. Polanco aware of troponin and recommends keeping the patient NPO and will evaluate patient in the morning -pt admitted to hospitalist Differential Diagnosis Differential Diagnoses: The differential diagnosis associated with the presentation includes ACS, angina, costochondritis, acid reflux Lab Data 03/04/24 19:08 03/04/24 19:08 Labs: Lab Results 03/04/24 03/04/24 03/04/24 Range/Units 19:08 19:16 21:00 WBC 12.6 H (4.8-10.8) X10*3/uL RBC 4.47 L (4.60-5.80) X10*6/uL Hgb 13.4 L (14.0-18.0) g/dl Hct 39.7 L (42.0-52.0) % MCV 88.8 (80.0-98.0) fL MCH 30.0 (27.0-33.0) pg MCHC 33.8 (31.0-36.0) g/dl RDW 13.8 (11.0-16.0) % Plt Count 212 (160-400) X10*3/uL MPV 9.6 (9.4-12.4) fL Immature Gran % (Auto) 0.3 (0.0-0.4) % Neut % (Auto) 83.1 H (45-73) % Lymph % (Auto) 10.1 L (20-40) % Turner % (Auto) 5.3 (2-11) % Eos % (Auto) 0.7 (0-4) % Baso % (Auto) 0.5 (0-2) % Lymph # (Auto) 1.3 (1.2-4.9) X10*3/uL Turner # (Auto) 0.7 (0.1-1.2) X10*3/uL Eos # (Auto) 0.1 (0.0-0.4) X10*3/uL Baso # (Auto) 0.1 (0.0-0.2) X10*3/uL Abs Immat Gran (auto) 0.04 H (0.00-0.03) X10*3/uL Absolute Neuts (auto) 10.4 H (2.0-8.3) x10*3/uL Absolute Nucleated RBC 0.000 (0.0-0.012) X10*3/uL Nucleated RBC % (auto) 0.0 (0.0-0.2) /100WBC PT 12.7 H (10.9-12.4) SEC INR 1.1 (0.9-1.1) APTT 33.4 (26.0-36.8) SEC Sodium 139 (135-145) mmol/L Potassium 3.9 (3.3-5.1) mmol/L Chloride 108 (96-108) mmol/L Carbon Dioxide 22 (22-29) mmol/L Anion Gap 13 (12-20) BUN 14 (9-16) mg/dL Creatinine 1.00 (0.5-1.4) mg/dL Estim Creat Clear Calc 69.0 Estimated GFR > 60 Random Glucose 106 (60-115) mg/dL Calcium 9.1 (8.4-10.2) mg/dL Total Bilirubin 0.5 (0.0-1.0) mg/dL AST 26 (5-37) U/L ALT 9 (0-40) U/L Alkaline Phosphatase 85 (39-117) U/L Troponin I High Sens 35.6 H 1873.4 H* D (<3.5-35.0) ng/L B-Natriuretic Peptide 37 (<100) pg/mL Total Protein 6.7 (6.5-8.0) g/dL Albumin 3.9 (3.5-5.0) g/dL Discharge Plan Discharge Clinical Impression: Acute non-ST elevation myocardial infarction (NSTEMI) Patient Disposition: Admitted As Inpatient Print Language: Kyrgyz
[2024-03-04] MEDS: Heparin Sodium,Porcine 5,000 UNIT/ML VIAL 4000 UNIT IVPUSH (19:24)
[2024-03-04] MEDS: Ticagrelor 90 MG TABLET 180 MG PO (19:24)
[2024-03-04 19:28] LABS: Alanine Aminotransferase 9 U/L (0-40); Albumin Level 3.9 g/dL (3.5-5.0); Alkaline Phosphatase 85 U/L (39-117); Anion Gap 13 (12-20); Aspartate Amino Transferase 26 U/L (5-37); Bilirubin Total 0.5 mg/dL (0.0-1.0); Blood Urea Nitrogen 14 mg/dL (9-16); Calcium 9.1 mg/dL (8.4-10.2); Carbon Dioxide 22 mmol/L (22-29); Chloride 108 mmol/L (96-108); Estimated Glomerular Filt Rate > 60; Glucose Random 106 mg/dL (60-115); Potassium 3.9 mmol/L (3.3-5.1); Sodium 139 mmol/L (135-145); Total Protein 6.7 g/dL (6.5-8.0)
[2024-03-04 19:30] LABS: INTERNATIONAL NORM RATIO 1.1 (0.9-1.1); Prothrombin Time 12.7 SEC (10.9-12.4)
--- NOTE | 2024-03-04 19:31 | PC.NURSE ---
assumed care of pt 1899. 1904 18g iv established to r. ac. labs obtained. pt is sinus crystal on patient monitor reporting 9/10 cp. pt states pain started after seeing wifee in the icu. pt is axox4 speaking full clear sentences, denies sob/n/v/d/abd pain/dizziness. does report 5/10 asif/neck pain. 2nd iv established 20 L. ac. pt medicated per jul. pt reports relief of cp 3/10 after sublingual nitro. bp as documented. call haney within reach.
[2024-03-04 19:32] LABS: Partial Thromboplastin Time 33.4 SEC (26.0-36.8)
[2024-03-04 19:32] LABS: B Type Natriuretic Peptide 37 pg/mL (<100)
[2024-03-04 19:35] LABS: Troponin-I High Sensitivity 35.6 ng/L (<3.5-35.0)
--- NOTE | 2024-03-04 21:34 | ECG_ITS ---
Test Reason : REPEAT Blood Pressure : / mmHG Vent. Rate : 055 BPM Atrial Rate : 055 BPM P-R Int : 174 ms QRS Dur : 078 ms QT Int : 442 ms P-R-T Axes : 046 052 052 degrees QTc Int : 422 ms Sinus bradycardia Nonspecific ST abnormality Abnormal ECG When compared with ECG of 04-MAR-2024 19:16, No significant change was found Referred By: Emiliano Santacruz Electronically Signed By:Sin Polanco
[2024-03-04 21:35] LABS: Troponin-I High Sensitivity 1873.4 ng/L (<3.5-35.0)
[2024-03-04] MEDS: Heparin Sodium,Porcine/1/2NS 25,000 UNIT/250 ML IV.SOLN 9.64 UNIT IVCONT (21:47)
--- NOTE | 2024-03-05 | ECG_ITS ---
Test Reason : BRADYCARDIA Blood Pressure : / mmHG Vent. Rate : 048 BPM Atrial Rate : 048 BPM P-R Int : 176 ms QRS Dur : 078 ms QT Int : 472 ms P-R-T Axes : 029 052 059 degrees QTc Int : 421 ms Sinus bradycardia Nonspecific ST and T wave abnormality Abnormal ECG When compared with ECG of 04-MAR-2024 21:31, No significant change was found Referred By: Emiliano Santacruz Electronically Signed By:Sin Polanco
--- NOTE | 2024-03-05 00:37 | P.EN_ITS ---
Event Note Date of Service: 03/05/24 Event Note: Was asked to evaluate the patient for admission. Discussed with americanization teacher, Dr Polanco and patient to be transferred to [facility] for cardiac catherization. Will hold off on inpatient admission as patient is pending [facility] transfer. Time Spent With Patient Time: Total time managing care of this patient today ____ minutes.
--- NOTE | 2024-03-05 00:56 | PC.NURSE ---
pt found to be crystal on monitor 35 bpm. monitor strip printed for MD to review. obtaining ekg.
[2024-03-05 02:03] VITALS: BP 123/68; PULSE 44; RESP 14; TEMP 36.7; O2SAT 98
[2024-03-05 03:35] VITALS: BP 134/67; PULSE 57; RESP 14; TEMP 36.1; O2SAT 98
--- NOTE | 2024-03-05 03:49 | MHC.EDTECH ---
This pct just assumed care of Patient ,vitals taken and repeated labs drawn and sent to lab .
[2024-03-05 03:54] LABS: Hematocrit 40.2 % (42.0-52.0); Hemoglobin 13.3 g/dl (14.0-18.0); Mean Corpuscular HGB Conc 33.1 g/dl (31.0-36.0); Mean Corpuscular Hemoglobin 29.8 pg (27.0-33.0); Mean Corpuscular Volume 89.9 fL (80.0-98.0); Mean Platelet Volume 9.8 fL (9.4-12.4); Platelet Count 202 X10*3/uL (160-400); Red Blood Count 4.47 X10*6/uL (4.60-5.80); Red Cell Distribution Width 14.1 % (11.0-16.0); White Blood Count 9.6 X10*3/uL (4.8-10.8)
[2024-03-05 04:00] LABS: INTERNATIONAL NORM RATIO 1.2 (0.9-1.1); Prothrombin Time 13.6 SEC (10.9-12.4)
[2024-03-05 04:15] LABS: PTT Heparin Drip 144.4 SEC (53-77.9)
--- NOTE | 2024-03-05 04:20 | PC.NURSE ---
critical ptt reported at 144.4, made aware. heparin drip paused. will redraw ptt at 0518.
[2024-03-05 04:50] LABS: Troponin-I High Sensitivity 9157.6 ng/L (<3.5-35.0)
[2024-03-05 05:33] LABS: PTT Heparin Drip 75.5 SEC (53-77.9)
[2024-03-05 05:42] LABS: Anion Gap 12 (12-20); Blood Urea Nitrogen 11 mg/dL (9-16); Calcium 9.1 mg/dL (8.4-10.2); Carbon Dioxide 22 mmol/L (22-29); Chloride 110 mmol/L (96-108); Creatinine Clr Calc Pharmacy 73.4; Estimated Glomerular Filt Rate > 60; Glucose Random 85 mg/dL (60-115); Sodium 140 mmol/L (135-145)
[2024-03-05 06:07] VITALS: BP 128/63; PULSE 49; RESP 14; TEMP 36.8; O2SAT 98
--- NOTE | 2024-03-05 07:12 | PC.NURSE ---
0549 heparin drip restarted per protocol as ptt 75.5. pt continues to deny cp, resting comfortably in stretcher. pt remains sinus crystal on monitor MD aware. bedside report given to La MCCABE.
[2024-03-05 08:11] VITALS: BP 125/67; PULSE 65; RESP 14; TEMP 36.6; O2SAT 95
--- NOTE | 2024-03-05 08:14 | PC.NURSE ---
Pt resting comfortably, denies any chest pain at this time. verbalizes no needs. vss on monitor. pt aware of NPO status.
[2024-03-05] MEDS: Ticagrelor 90 MG TABLET PO (09:10)
[2024-03-05] MEDS: Aspirin 81 MG TAB.CHEW PO (09:10)
--- NOTE | 2024-03-05 09:11 | PC.NURSE ---
pt a&ox3, vss, potline monitor intact sinus crystal on monitor, pt npo except sip for meds, heparin drip at 8, rr equal non labored, pt denying pain/discomfort, per docking saw operator in room with patient- pt will be txfr to [facility] when bed becomes available.
--- NOTE | 2024-03-05 09:37 | PC.NURSE ---
report given to Micaela MCCABE at [facility]
[2024-03-05 10:05] VITALS: BP 122/66; PULSE 62; RESP 16; TEMP 36.6; O2SAT 95
--- NOTE | 2024-03-05 10:40 | PM.CNCAR ---
History of Present Illness History of Present Illness Date of Service: 03/05/24 Chief complaint: chest pain, hx of 6 MIs Narrative: [age] year gentleman with history of coronary disease with previous PCI. In 2021 he had RCA PCI. He was visiting his in the hospital when he started having chest discomfort and came to the emergency department. Initial ECG showed subtle inferior ST elevations with reciprocal changes. He was given nitroglycerin and ECG improved back to normal. He ruled in for NSTEMI. He was loaded with Brilinta 180 mg. He is on aspirin 81 mg daily. He was started on heparin drip. We arranged a bed to transfer him to [facility] and he is waiting to go to [facility] this morning. He is already added to the cardiac catheterization list. No bleeding concerns. No upcoming procedures. No medication allergies. 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) Alcohol intake: former Patient Tobacco Use Status: Former Tobacco user Years Smoked: 8 +/- Second Hand Smoke Exposure: No service: No Current occupational status: disabled Meds Allergies Allergy/AdvReac Type Severity Reaction Status Date / Time No Known Allergies Allergy Verified 03/04/24 18:15 Home Medications ?Medication ?Instructions ?Recorded ?Confirmed ?Last Taken ?Type aspirin 81 mg tablet,delayed 81 mg PO DAILY 10/17/21 10/17/21 Unknown History release cetirizine 10 mg tablet 10 mg PO DAILY 10/17/21 10/17/21 Unknown History cholecalciferol (vitamin D3) 50 50 mcg PO DAILY 10/17/21 10/17/21 Unknown History mcg (2,000 unit) capsule (Vitamin D3) lisinopril 20 mg tablet 20 mg PO DAILY 10/17/21 10/17/21 Unknown History metoprolol succinate 50 mg 50 mg PO DAILY 10/17/21 10/17/21 Unknown History tablet,extended release 24 hr montelukast 10 mg tablet 10 mg PO BEDTIME 10/17/21 10/17/21 Unknown History omeprazole 20 mg capsule,delayed 20 mg PO QAM 10/17/21 10/17/21 Unknown History release rosuvastatin 40 mg tablet 40 mg PO BEDTIME 10/17/21 10/17/21 Unknown History sertraline 100 mg tablet 100 mg PO DAILY 10/17/21 10/17/21 Unknown History ticagrelor 90 mg tablet (Brilinta) 90 mg PO BID 10/17/21 10/17/21 Unknown History Physical Exam Vital Signs: Vital Signs: Last Vital Signs Temp 98 F 03/05/24 10:05 Pulse 62 03/05/24 10:05 Resp 16 03/05/24 10:05 BP 122/66 03/05/24 10:05 Pulse Ox 95 03/05/24 10:05 O2 Del Method Room Air 03/05/24 10:05 BMI result Body Mass Index 31.4 GENERAL APPEARANCE: in no acute distress, pleasant. NECK: no carotid bruit, no jugular venous distention. SKIN: no suspicious lesions, warm and dry. HEART: no murmurs, regular rate and rhythm. LUNGS: clear to auscultation bilaterally. ABDOMEN: soft, nontender. EXTREMITIES: no edema. PERIPHERAL PULSES: equal. NEUROLOGIC: No gross deficits, AAO X 3 Objective Labs and Meds 03/05/24 03:48 03/05/24 05:20 Lab results: Laboratory Results - last 24 hr 03/04/24 03/04/24 03/04/24 19:08 19:16 21:00 WBC 12.6 H RBC 4.47 L Hgb 13.4 L Hct 39.7 L MCV 88.8 MCH 30.0 MCHC 33.8 RDW 13.8 Plt Count 212 MPV 9.6 Immature Gran % (Auto) 0.3 Neut % (Auto) 83.1 H Lymph % (Auto) 10.1 L Storey % (Auto) 5.3 Eos % (Auto) 0.7 Baso % (Auto) 0.5 Lymph # (Auto) 1.3 Storey # (Auto) 0.7 Eos # (Auto) 0.1 Baso # (Auto) 0.1 Abs Immat Gran (auto) 0.04 H Absolute Neuts (auto) 10.4 H Absolute Nucleated RBC 0.000 Nucleated RBC % (auto) 0.0 PT 12.7 H INR 1.1 APTT 33.4 aPTT Heparin Protocol Sodium 139 Potassium 3.9 Chloride 108 Carbon Dioxide 22 Anion Gap 13 BUN 14 Creatinine 1.00 Estim Creat Clear Calc 69.0 Estimated GFR > 60 Random Glucose 106 Calcium 9.1 Total Bilirubin 0.5 AST 26 ALT 9 Alkaline Phosphatase 85 Troponin I High Sens 35.6 H 1873.4 H* D B-Natriuretic Peptide 37 Total Protein 6.7 Albumin 3.9 03/05/24 03/05/24 03:48 05:20 WBC 9.6 RBC 4.47 L Hgb 13.3 L Hct 40.2 L MCV 89.9 MCH 29.8 MCHC 33.1 RDW 14.1 Plt Count 202 MPV 9.8 Immature Gran % (Auto) Neut % (Auto) Lymph % (Auto) Storey % (Auto) Eos % (Auto) Baso % (Auto) Lymph # (Auto) Storey # (Auto) Eos # (Auto) Baso # (Auto) Abs Immat Gran (auto) Absolute Neuts (auto) Absolute Nucleated RBC 0.000 Nucleated RBC % (auto) 0.0 PT 13.6 H INR 1.2 H APTT aPTT Heparin Protocol 144.4 H* 75.5 D Sodium 140 Potassium 4.0 Chloride 110 H Carbon Dioxide 22 Anion Gap 12 BUN 11 Creatinine 0.94 Estim Creat Clear Calc 73.4 Estimated GFR > 60 Random Glucose 85 Calcium 9.1 Total Bilirubin AST ALT Alkaline Phosphatase Troponin I High Sens 9157.6 H* D B-Natriuretic Peptide Total Protein Albumin Imaging Radiologist's impression: Impressions Chest X-Ray 03/04/24 18:40 IMPRESSION: No acute cardiopulmonary findings. Electronically signed by: Bret Candelaria MD 03/04/2024 08:05 PM EDT Assessment and Plan (1) Acute non-ST elevation myocardial infarction (NSTEMI): Status: Acute Plan Pleasant 63 year gentleman with known history of coronary artery disease with previous LAD, RCA and circumflex PCI presenting with chest discomfort and subtle inferior ST elevations which improved with nitroglycerin. He ruled in for NSTEMI and was loaded with aspirin and Brilinta and has been on heparin drip. He is pain-free currently. Hemodynamically stable. I had detailed discussion with the patient about cardiac catheterization and he is agreeable. He will be transferred to [facility] for potential cardiac catheterization later today. Continue same medications for now. Further recommendations after cardiac catheterization. Thank you for allowing me to participate in the care of your patient. Please feel free to contact me if you have any questions. Procedures Date of Service Date of Service: 03/05/24
== END 2024-03-05 10:05 | disposition short-term general hospital (02) ==
PROVIDERS: Internal Medicine; Emergency Provider Student in an Organized Health Care Education/Training Program; PCP Internal Medicine
DX: I21.4 Non-ST elevation (NSTEMI) myocardial infarction (principal); R07.9 Chest pain, unspecified; I10 Essential (primary) hypertension; E78.5 Hyperlipidemia, unspecified; J45.909 Unspecified asthma, uncomplicated; Z87.891 Personal history of nicotine dependence; Z79.82 Long term (current) use of aspirin; Z79.899 Other long term (current) drug therapy; Z79.02 Long term (current) use of antithrombotics/antiplatelets
CPT/HCPCS: 36415; 71045; 80048; 80053; 83880; 84484; 85025; 85027; 85610; 85730; 93005; 96374; 99285; J1644

== ENCOUNTER → 2024-03-04 18:57 | Outpatient (BNV) | payer OTHER, SELFPAY ==
[2022-03-15 07:26] VITALS: BP 104/58; BP 112/62; BMI 32.8
== END ==
PROVIDERS: Emergency Provider Student in an Organized Health Care Education/Training Program; PCP Internal Medicine; Visit Provider Internal Medicine Cardiovascular Disease
DX: I21.4 Non-ST elevation (NSTEMI) myocardial infarction (principal)
CPT/HCPCS: 93010; 99284

== ENCOUNTER → 2024-03-05 00:52 | Outpatient (BNV) | payer OTHER, SELFPAY ==
[2022-03-15 07:26] VITALS: BP 104/58; BP 112/62; BMI 32.8
== END ==
PROVIDERS: Emergency Provider Student in an Organized Health Care Education/Training Program; PCP Internal Medicine; Visit Provider Internal Medicine Cardiovascular Disease
DX: R94.31 Abnormal electrocardiogram [ECG] [EKG] (principal)
CPT/HCPCS: 93010

== ENCOUNTER → 2024-03-05 23:59 | Outpatient (BNV) | payer OTHER, SELFPAY ==
[2022-03-15 07:26] VITALS: BP 104/58; BP 112/62; BMI 32.8
== END ==
PROVIDERS: PCP Internal Medicine; Visit Provider Internal Medicine Cardiovascular Disease
DX: I21.4 Non-ST elevation (NSTEMI) myocardial infarction (principal)
CPT/HCPCS: 93458; 99152

== ENCOUNTER 2024-08-14 08:04 | Outpatient (REF) | payer OTHER, SELFPAY ==
[2022-03-15 07:26] VITALS: BP 104/58; BP 112/62; BMI 32.8
--- OUTSIDE RECORDS SUMMARY | 2024-08-14 08:15 | XMS_ITS | Encounter Summary ---
Author Organization [facility] Address [address] [place] [address] Care Team Providers Care Director Of Epidemiology Name Role Phone Jacqueline Carey MD Primary Care Provider Meeta Middleton Primary Care Provider [phone] Encounter Details Date Type Department Care Team (Latest Contact Info) Description 09/11/2018 Abstract [facility] CONVERSIONS Dental, Provider, DDS Social History Tobacco Use Types Packs/Day Years Used Date Smoking Tobacco: Never Assessed Sex and Gender Information Value Date Recorded Sex Assigned at Male 03/12/2022 10:14 AM EDT Legal Sex Male 10:14 AM EDT Gender Identity Male 03/12/2022 10:14 AM EDT Sexual Orientation Straight 03/12/2022 10 :14 AM EDT documented as of this encounter Plan of Treatment Upcoming Encounters Date Type Department Care Team ([facility] st Contact Info) Description 11/12/2024 11:00 AM EDT Office Visit [facility] MEDICINE [address] [place] [address] Meeta Nicholas ANP [address] [place] [address] documented as of this encounter Visit Diagnoses Not on filedocumented in this encounter Care Teams Director Of Epidemiology Relationship Specialty Start Date End Date Jacqueline Carey MD PCP - General Family Medicine 04/02/19 06/26/22 Meeta Nicholas ANP [address] [place] [address] PCP - General Family Medicine 06/27/22 documented as of this encounter
--- OUTSIDE RECORDS SUMMARY | 2024-08-14 08:15 | XMS_ITS | Encounter Summary ---
Author Organization [employer] Address [address] [place] [address] Care Team Providers Care Outcomes Analyst Name Role Phone Meeta Nicholas Primary Care Provider [phone] Reason for Visit * Reason Comments Med Refill Encounter Details Date Type Department Care Team ([facility] st Contact Info) Description 05/13/2024 Refill [facility] MEDICINE [address] [place] [address] Meeta Nicholas ANP [address] [place] [address] Benign essential HTN Social History Tobacco Use Types Packs/Day Years Used Date Smoking Tobacco: Never Smokeless Tobacco: Never Alcohol Use Standard Drinks/Week Comments Never 0 (1 standard drink = 0.6 oz pur e alcohol) Depression Answer Date Recorded Patient Health Questionnaire-9 Score 3 03/16/2024 Patient Health Questionnaire-9 Score 3 03/16/2024 Last PHQ-9: Questionnaire Data Not on file 1 05/16/2023 Housing Stability Answer Date Recorded What is your housing situation today? I have brandon charles 03/04/[address] you li ve. Do you have problems with any of the following? None of the above 03/04/2023 Food Insecurity Answer Date Recorded Within the past 12 months, y ou worried that your food would run out before you got money to buy more: Never True 03/04/2023 Within the past 12 months,th e food you bought just didn't last and you didn't have enough money to get more: Never True Transportation Answer Date Recorded In the past 12 months, has l ack of transportation kept you from medical appts, meetings, work or from getting things needed for daily living? No 03/04/2023 Utilities Answer Date Recorded In the past 12 months, has t he electric, gas, oil or water company threatened to shut off services in your home? No 03/04/2023 Depression Answer Date Recorded Patient Health Questionnaire-2 Score 0 03/16/2024 Internet Access Answer Date Recorded Internet Access Q1 Yes 01/10/2024 Internet Access Q2 Not on file 01/10/2024 Sex and Gender Information Value Date Recorded Sex Assigned at Male 03/12/2022 10:14 AM EDT Legal Sex Male 10:14 AM EDT Gender Identity Male 03/12/2022 10:14 AM EDT Sexual Orientation Straight 03/12/2022 10 :14 AM EDT documented as of this encounter Plan of Treatment Upcoming Encounters Date Type Department Care Team (Late st Contact Info) Description 11/12/2024 11:00 AM EDT Office Visit [facility] MEDICINE [address] [place] [phone] Meeta Nicholas ANP [address] [place] [address] documented as of this encounter Visit Diagnoses Diagnosis Benign essential HTN documented in this encounter Additional Health Concerns Assessment Noted Time PHQ-9 Depression Total Score: 3 03/16/20 24 1:05 PM EST documented as of this encounter Care Teams Outcomes Analyst Relationship Specialty Start Date End Date Meeta Nicholas ANP [address] [place] [id number] PCP - General Family Medicine 06/27/22 documented as of this encounter
--- OUTSIDE RECORDS SUMMARY | 2024-08-14 08:15 | XMS_ITS | Encounter Summary ---
Author Organization [employer] Address [address] [place] [address] Care Team Providers Care Animal Doctor Name Role Phone Meeta Nicholas Primary Care Provider [phone] Reason for Visit * Reason Onset Date Comments Med Refill 10/18/2023 Encounter Details Date Type Department Care Team ([facility] st Contact Info) Description 10/18/2023 Telephone [facility] MEDICINE [address] [place], [place] [phone] Meeta Nicholas ANP [address] [place], [place] [phone] Med Refill Social History Tobacco Use Types Packs/Day Years Used Date Smoking Tobacco: Former Cigarettes Smokeless Tobacco: Never Alcohol Use Standard Drinks/Week Comments Never 0 (1 standard drink = 0.6 oz pur e alcohol) Depression Answer Date Recorded Patient Health Questionnaire-9 Score 0 01/07/2023 Housing Stability Answer Date Recorded What is [...] Date Recorded Patient Health Questionnaire-2 Score 0 01/07/2023 Sex and Gender Information Value Date Recorded Sex Assigned at Male 03/12/2022 10:14 AM EDT Legal Sex Male 10:14 AM EDT Gender Identity Male 03/12/2022 10:14 AM EDT Sexual Orientation Straight 03/12/2022 10 :14 AM EDT documented as of this encounter Miscellaneous Notes * Telephone Encounter - Sakina Berman LPN - 10/18/2023 8:58 AM EDT Medication was sent to [id number] on 07/08/23 #30 with 3 refills. * Telephone Encounter - Jacqueline El - 10/18/2023 8:53 AM EDT TC from pt requesting medication refill. Medications needing refill : rosuvastatin (Crestor) 40 MG tablet To be sent to: [facility]/pharmacy #1 - [address] documented in this encounter Plan of Treatment Upcoming Encounters Date Type Department Care Team (Late st Contact Info) Description 11/12/2024 11:00 AM EDT Office Visit [facility] MEDICINE [address] [place] [address] Meeta Nicholas ANP [address] [place] [address] documented as of this encounter Visit Diagnoses Not on filedocumented in this encounter Additional Health Concerns Assessment Noted Time PHQ-9 Depression Total Score: 0 01/08/20 23 1:24 PM EDT documented as of this encounter Care Teams Animal Doctor Relationship Specialty Start Date End Date Meeta Nicholas ANP [address] [place] [address] PCP - General Family Medicine 06/27/22 documented as of this encounter
--- OUTSIDE RECORDS SUMMARY | 2024-08-14 08:15 | XMS_ITS | Encounter Summary ---
Author Organization [email or web address] Address [address] [place] [address] Care Team Providers Care Information And Data Architect Analyst Name Role Phone Meeta Nicholas Primary Care Provider [phone] Reason for Visit * Reason Comments Med Refill Encounter Details Date Type Department Care Team ([facility] st Contact Info) Description 10/04/2023 Refill [facility] MEDICINE [address] [place], [place] [phone] Meeta Nicholas ANP [address] [place] [address] Social History Tobacco Use Types Packs/Day Years [...] Description 11/12/2024 11:00 AM EDT Office Visit [facility] MEDICINE [address] [place] [address] Meeta Nicholas ANP [address] [place] [address] documented as of this encounter Visit Diagnoses Not on filedocumented in this encounter Additional Health Concerns Assessment Noted Time PHQ-9 Depression Total Score: 0 01/08/20 23 1:24 PM EDT documented as of this encounter Care Teams Information And Data Architect Analyst Relationship Specialty Start Date End Date Meeta Nicholas ANP [address] [place] [address] PCP - General Family Medicine 06/27/22 documented as of this encounter
--- OUTSIDE RECORDS SUMMARY | 2024-08-14 08:15 | XMS_ITS | Encounter Summary ---
Author Organization [employer] Address [address] 7[address] [place] [address] Care Team Providers Care Dean Of Chapel Name Role Phone Meeta Nicholas Primary Care Provider [phone] Reason for Visit * Reason Comments Med Refill Encounter Details Date Type Department Care Team ([facility] st Contact Info) Description 11/24/[address] [facility] CH[facility] MED & PEDS [address] [place], [place] [phone] Meeta Nicholas ANP [address] [place] [address] Essential hypertension Social History Tobacco Use Types Packs/Day Years [...] Description 11/12/2024 11:00 AM EDT Office Visit [facility] MEDICINE [address] [place] [address] Meeta Nicholas ANP [address] [place] [address] documented as of this encounter Visit Diagnoses Diagnosis Essential hypertension Unspecified essential hypertension documented in this encounter Additional Health Concerns Assessment Noted Time PHQ-9 Depression Total Score: 0 01/08/20 23 1:24 PM EDT documented as of this encounter Care Teams Dean Of Chapel Relationship Specialty Start Date End Date Meeta Nicholas ANP [address] [place] [address] PCP - General Family Medicine 06/27/22 documented as of this encounter
--- OUTSIDE RECORDS SUMMARY | 2024-08-14 08:15 | XMS_ITS | Encounter Summary ---
Author Organization [employer] Address [address] [place] [address] Care Team Providers Care Movie Operator Name Role Phone Meeta Nicholas Primary Care Provider [phone] Reason for Visit * Reason Onset Date Comments Medication Question 05/29/2023 Encounter Details Date Type Department Care Team ([facility] st Contact Info) Description 05/29/2023 Telephone [facility] MEDICINE [address] [place], [place] [phone] Meeta Nicholas ANP [address] [place], [place] [phone] Medication Question Social History Tobacco Use Types Packs/Day Years [...] encounter Miscellaneous Notes * Telephone Encounter - Nathaly Interiano RN - 05/31/2023 2:34 PM EST Outgoing call to pt's [facility] regarding below message. They stated can refill requested eye drops and will now. They think maybe registered pharmacist was confused because pt has 2 different eye drops and one was one time use for after his cataract surgery. Inquired about montelukast. They stated last prescribed was Dr Carey in August of 2021. Telephone call placed to lesly. Pt answered. Informed eye drops will be ready for pear picker in an hour at [facility]. Inquired about montelukast since pt hasn't had it in a long time and is now requesting it. Pt reports worsening allergies and asthma. Pt speaking in full sentences. Denies current exacerbation. * Telephone Encounter - Sana Pires - 05/31/2023 9:24 AM EST Tc from pt in regards below, please contact pt. * Telephone Encounter - Carlton Leonardo - 05/29/2023 11:51 AM EST Tc from Xavi Bojorquez/LENY stating called [facility] for latanoprost (Xalatan) 0.005 % ophthalmic solution, [facility] denied refill and informed him it was a one time prescription but on pt's med list it shows 6 refills. Lesly is also requesting clarification on montelukast 10 mg which they stated it was pr escribed by pcp (assembly instructions writer did not see medication on med list). Please contact Lesly at [phone]. documented in this encounter Plan of Treatment Upcoming Encounters Date Type Department Care Team (Late st Contact Info) Description 11/12/2024 11:00 AM EDT Office Visit [facility] MEDICINE [address] [place] [address] Meeta Nicholas ANP [address] [place] [address] documented as of this encounter Visit Diagnoses Not on filedocumented in this encounter Additional Health Concerns Assessment Noted Time PHQ-9 Depression Total Score: 0 01/08/20 23 1:24 PM EDT documented as of this encounter Care Teams Movie Operator Relationship Specialty Start Date End Date Meeta Nicholas ANP [address] [place] [phone] PCP - General Family Medicine 06/27/22 documented as of this encounter
--- OUTSIDE RECORDS SUMMARY | 2024-08-14 08:15 | XMS_ITS | Encounter Summary ---
Author Organization [employer] Address [address] [place] [address] Care Team Providers Care Paper Inspector Name Role Phone Meeta Nicholas Primary Care Provider [phone] Reason for Visit * Reason Onset Date Comments New Med Request 02/04/2024 Encounter Details Date Type Department Care Team ([facility] Contact Info) Description 02/04/2024 Telephone [facility] MEDICINE [address] [place], [place] [phone] Meeta Nicholas ANP [address] [place], [place] [phone] New Med Request Social History Tobacco Use Types Packs/Day Years [...] Recorded Patient Health Questionnaire-2 Score 0 01/07/2023 Internet Access Answer Date Recorded Internet Access [...] encounter Miscellaneous Notes * Telephone Encounter - Cathryn Anguiano RN - 02/05/2024 10:06 AM EDT Telephone call to pt using [employer] #[id number] to inquire about below message for lotion. Pt states with change in season, his skin is dry all over, in particular on his hands and calves. He is requesting lotion for dry, cracked skin. Advised message will be sent to PCP and we will call back with update if applicable, pt in agreement with plan, to call clinic PRN. * Telephone Encounter - Orion Marrero - 02/04/2024 11:38 AM EDT Tc from patients spouse calling to request a lotion for patients dry ,cracking skin documented in this encounter Plan of Treatment Upcoming Encounters Date Type Department Care Team (Late st Contact Info) Description 11/12/2024 11:00 AM EDT Office Visit [facility] MEDICINE [address] [place], [place] [phone] Meeta Nicholas ANP [address] [place] [address] documented as of this encounter Visit Diagnoses Not on filedocumented in this encounter Additional Health Concerns Assessment Noted Time PHQ-9 Depression Total Score: 0 01/08/20 23 1:24 PM EDT documented as of this encounter Care Teams Paper Inspector Relationship Specialty Start Date End Date Meeta Nicholas ANP [address] [place] [address] PCP - General Family Medicine 06/27/22 documented as of this encounter
--- OUTSIDE RECORDS SUMMARY | 2024-08-14 08:15 | XMS_ITS | Encounter Summary ---
Author Organization [employer] Address [address] [place] [address] Care Team Providers Care Shear Operator Helper Name Role Phone Meeta Nicholas Primary Care Provider [phone] Reason for Visit * Reason Onset Date Comments Med Refill 07/23/2024 Encounter Details Date Type Department Care Team ([facility] st Contact Info) Description 07/23/2024 Telephone [facility] MEDICINE [address] [place], [place] [phone] Meeta Nicholas ANP [address] [place], [place] [phone] Med Refill Social History Tobacco Use Types [...] Telephone Encounter - Sakina Berman LPN - 07/23/2024 12:28 PM EDT Medication isn't prescribed by PCP. * Telephone Encounter - Dilan Wilder - 07/23/2024 12:27 PM EDT TC from pt requesting medication refill. Medications needing refill : metoprolol succinate XL (Toprol-XL) 25 MG 24 hr tablet To be sent to: [facility]/pharmacy [address] [place] [address] documented in this encounter Plan of Treatment Upcoming Encounters Date Type Department Care Team (Late st Contact Info) Description 11/12/2024 11:00 AM EDT Office Visit [facility] MEDICINE [address] [place], [place] [phone] Meeta Nicholas ANP [address] [place], [place] [phone] documented as of this encounter Visit Diagnoses Not on filedocumented in this encounter Additional Health Concerns Assessment Noted Time PHQ-9 Depression Total Score: 3 03/16/20 24 1:05 PM EST documented as of this encounter Care Teams Shear Operator Helper Relationship Specialty Start Date End Date Meeta Nicholas ANP [address] [place] [address] PCP - General Family Medicine 06/27/22 documented as of this encounter
--- OUTSIDE RECORDS SUMMARY | 2024-08-14 08:15 | XMS_ITS | Encounter Summary ---
Author Organization [employer] Address [address] [place] [address] Care Team Providers Care Printer Maintainer Name Role Phone Meeta Nicholas Primary Care Provider [phone] Reason for Visit * Reason Comments Med Refill Encounter Details Date Type Department Care Team ([facility] st Contact Info) Description 10/22/2023 Refill [facility] MEDICINE [address] [place], [place] [phone] Meeta Nicholas ANP [address] [place] [address] Social History Tobacco Use Types Packs/Day Years [...] Description 11/12/2024 11:00 AM EDT Office Visit [facility] MEDICINE [address] [place] [address] Meeta Nicholas ANP [address] [place] [address] documented as of this encounter Visit Diagnoses Not on filedocumented in this encounter Additional Health Concerns Assessment Noted Time PHQ-9 Depression Total Score: 0 01/08/20 23 1:24 PM EDT documented as of this encounter Care Teams Printer Maintainer Relationship Specialty Start Date End Date Meeta Nicholas ANP [address] [place] [address] PCP - General Family Medicine 06/27/22 documented as of this encounter
--- OUTSIDE RECORDS SUMMARY | 2024-08-14 08:15 | XMS_ITS | Encounter Summary ---
Author Organization [employer] Address [address] [place] [address] Care Team Providers Care Timber Treating Tank Operator Name Role Phone Meeta Nicholas Primary Care Provider [phone] Encounter Details Date Type Department Care Team ([facility] st Contact Info) Description 03/16/2024 Orders Only [facility] MEDICINE [address] [place], [place] [phone] Meeta Nicholas ANP [address] [place], [place] [phone] Benign essential HTN Social History Tobacco Use [...] [facility] MEDICINE [address] [place] [phone] Meeta Nicholas ANP [address] [place] [address] documented as of this encounter Visit Diagnoses Diagnosis Benign essential HTN documented in this encounter Additional Health Concerns Assessment Noted Time PHQ-9 Depression Total Score: 3 03/16/20 24 1:05 PM EST documented as of this encounter Care Teams Timber Treating Tank Operator Relationship Specialty Start Date End Date Meeta Nicholas ANP [address] [place] [phone] PCP - General Family Medicine 06/27/22 documented as of this encounter
--- OUTSIDE RECORDS SUMMARY | 2024-08-14 08:15 | XMS_ITS | Encounter Summary ---
Author Organization [employer] [facility] Address [address] [facility] 7t [place] [address] Care Team Providers Care Shoe Caser Name Role Phone Meeta Nicholas Primary Care Provider [phone] Reason for Visit * Reason Comments Med Refill Encounter Details Date Type Department Care Team (Late Contact Info) Description 02/02/2023 Refill [facility] MEDICINE [address] [place] [address] Mariposa Henry MD [address] [place] [phone] Heartburn Social History Tobacco Use Types Packs/Day Years Used Date Smoking Tobacco: Former Cigarettes Smokeless Tobacco: Never Alcohol Use Standard Drinks/Week Comments Never 0 (1 standard drink = 0.6 oz pur e alcohol) Depression Answer Date Recorded Patient Health Questionnaire-9 Score 0 01/07/2023 Depression Answer Date Recorded Patient Health Questionnaire-2 [...] Description 11/12/2024 11:00 AM EDT Office Visit [facility] MEDICINE [address] [place] [address] Meeta Nicholas ANP [address] [place] [address] documented as of this encounter Visit Diagnoses Diagnosis Heartburn documented in this encounter Additional Health Concerns Assessment Noted Time PHQ-9 Depression Total Score: 0 01/08/20 1:24 PM EDT documented as of this encounter Care Teams Shoe Caser Relationship Specialty Start Date End Date Meeta Nicholas ANP [address] [place] [address] PCP - General Family Medicine 06/27/22 documented as of this encounter
--- OUTSIDE RECORDS SUMMARY | 2024-08-14 08:16 | XMS_ITS | Encounter Summary ---
Author Organization [facility] Address [address] [place] [address] Care Team Providers Care Caption Writer Name Role Phone Meeta Nicholas Primary Care Provider [phone] Reason for Referral * Consultation (Routine) - Pending Review Specialty Diagnoses / Procedures Referred By Willie moura Referred To Contact Physical Medicine and Rehabilitation Diagnoses Coronary artery disease involving [place] coronary artery of [place] heart with angina pectoris (CMS/HCC) Polyarthralgia Chronic bronchitis, unspecified chronic bronchitis type (CMS/HCC) Meeta Nicholas ANP [address] [place] [address] Phone: tel: fax: Referral ID Status Reason Start Date Expiration Date Visits Requested Visits Authorized [id number] Pending Review Specialty Services Required 08/13/2024 08/13/2025 1 1 Reason for Visit * Reason Comments office visit Encounter Details Date Type Department Care Team (Latest Contact Info) Description 08/13/2024 11:15 AM EDT Office Visit [facility] [address] [place] [phone] Meeta Nicholas ANP [address] [place], [place] [phone] Benign essential HTN (Primary Dx); Coronary artery disease involving [place] coronary artery of [place] heart with angina pectoris (CMS/HCC); Hyperlipidemia, unspecified hyperlipidemia type; Healthcare maintenance; Polyarthralgia; Chronic bronchitis, unspecified chronic bronchitis type (CMS/HCC) Social History Tobacco Use Types Packs/Day Years [...] AM EDT documented as of this encounter Last Filed Vital Signs Vital Sign Reading Time Taken Comments Blood Pressure 105/70 08/13/2024 11:50 AM EDT Pulse 75 08/13/2024 11:50 AM EDT Temperature 36.3 ??C (97.3 ??F) 08/13/2024 1 1:50 AM EDT Respiratory Rate 18 08/13/2024 11:5 0 AM EDT Oxygen Saturation 98% 08/13/2024 11: 50 AM EDT Inhaled Oxygen Concentration - - Weight 79.3 kg (174 lb 12.8 oz) 025 11:50 AM EDT Height 160 cm (5' 3 ) 08/13/2024 11:50 AM EDT Body Mass Index 30.96 08/13/2024 11:50 AM EDT documented in this encounter Progress Notes * MARQUITA Siu - 08/13/2024 11:15 AM EDT SUBJECTIVE: Sebastian Bradley is a 63 y.o. year old male who presents for chronic disease management. Denies recent illness, injury, or hospitalization. PMH incl NSTEMI (09/2021 and again 02/2024), coronary artery disease, hypertension, chronic bronchitis, depression, hyperlipidemia, vitamin D deficiency, cecal ulcer, former smoker quit over 20 yearsago Has overnight urinary leakage - needs wipes, bed pads chux, gloves Needs eval for power scooter Acute Concerns: He is having joint pain in all joints. Not sleeping great - this is not new. Gets up in the night to check on his . Polyarthralgia - for a long time. Pain in shoulders, knees, feet, everywhere . He walks often but does not do other exercise. He denies chest pain or SEGAL. Also denies fatigue, abnormal or unintentional weight loss, chills, fever, night sweats. Colonoscopy 2019, Hx of LGIB 09/2019 - colo (Dr Conway) showed cecal ulcer with path showing nonspecific changes. x1 6-7mm tubular adenoma in cecum. Good prep. Cecal ulcer was though to be secondary to DAPT use. Next due per GI notes 5327-2221. Lab Results Component Value Date HGBA1C 5.9 (H) 04/19/2021 Social History Social History Narrative Not on file Patient Active Problem List Diagnosis Generalized severe acute periodontitis Dental calculus Dental abscess Periodontal disease Acute non-ST segment elevation myocardial infarction (CMS/HCC) Asthma Chronic bronchitis (CMS/HCC) Atherosclerosis of coronary artery Coronary artery disease involving [place] coronary artery of [place] heart with angina pectoris (CMS/HCC) Depressive disorder Hyperlipidemia Obesity Vitamin D deficiency Cecal ulcer History of colonoscopy Former smoker, stopped smoking in distant past Benign essential HTN Past Surgical History: Procedure Laterality Date ANGIOPLASTY 2003 OTHER SURGICAL HISTORY SLT OU 2023 Family History Problem Relation Name Age of Onset Mental illness Sister Diabetes Brother Prostate cancer Brother Heart disease Other Asthma Other Hypertension Other Review of Systems Constitutional: Negative for fatigue and fever. HENT: Negative for sore throat. Respiratory: Negative for cough. Cardiovascular: Negative for leg swelling. Musculoskeletal: Positive for arthralgias. Negative for back pain, joint swelling and myalgias. Skin: Negative for color change. Neurological: Negative for weakness and numbness. OBJECTIVE: Vitals: 08/13/24 1150 BP: 105/70 BP Location: Left arm Patient Position: Sitting BP Cuff Size: Large adult Pulse: 75 Resp: 18 Temp: 97.3 ??F (36.3 ??C) TempSrc: Temporal SpO2: 98% Weight: 174 lb 12.8 oz (79.3 kg) Height: 5' 3 (1.6 m) Physical Exam Vitals reviewed. Constitutional: General: He is not in acute distress. Appearance: Normal appearance. He is not ill-appearing. HENT: Head: Normocephalic and atraumatic. Eyes: General: No scleral icterus. Extraocular Movements: Extraocular movements intact. Pupils: Pupils are equal, round, and reactive to light. Cardiovascular: Rate and Rhythm: Normal rate and regular rhythm. Pulmonary: Effort: Pulmonary effort is normal. No accessory muscle usage or respiratory distress. Musculoskeletal: Comments: Tenderness to anterior left shoulder with palpation. ROM upper extremities limited by pain. Unable to abduct arms over 90 degrees laterally or reaching out front. No swelling in joints observed. Neurological: Mental Status: He is alert and oriented to person, place, and time. Mental status is at baseline. Comments: Ambulates with cane Psychiatric: Mood and Affect: Mood normal. Behavior: Behavior normal. ASSESSMENT/PLAN Sebastian was seen today for office visit. Diagnoses and all orders for this visit: Benign essential HTN (Primary) At/near goal today, </= 130/80. Continue to encourage low salt diet, regular exercise, home BP monitoring, compliance with medications. Call clinic if BP is frequently >150/90 Go to ED/call 911 if > 170/100 and having sx such as VARELA, visual changes, chest pain, SOB Last renal function: Lab Results Component Value Date GLUCOSE 85 03/05/2024 NA 140 03/05/2024 K 4.0 03/05/2024 CO2 22 03/05/2024 CL 110 (H) 03/05/2024 BUN 11 03/05/2024 CREATININE 0.94 03/05/2024 EGFR >60 03/05/2024 Lab Results Component Value Date MICROALBCREA 2 04/19/2021 No results found for: MICROALBCREU - Comprehensive Metabolic Panel; Future Coronary artery disease involving [place] coronary artery of [place] heart with angina pectoris (CMS/HCC) No chest pain or SEGAL. Recommend continue follow-up with cardiology. Continue statin and CAD management with statin, Brilinta, ASA, metoprolol. Had cecal ulcer thought to be related to Plavix use in past and so was switched to Brilinta. - Lipid Panel, Standard; Future - Hemoglobin A1c; Future Hyperlipidemia, unspecified hyperlipidemia type - Hemoglobin A1c; Future Healthcare maintenance Polyarthralgia Recommend heat, stretching, increased exercise. Will check labs as below. Will consider consult with his psychiatrist for duloxetine start. He is unable to sleep more because his wears oxygen and the nasal cannula frequently comes off while she is sleeping and so he gets up to fix this at least 3 times at night. - Sed Rate by Modified Westergren; Future - C-reactive Protein; Future - Cyclic Citrullinated Peptide (CCP) Antibody (IgG); Future - Rheumatoid Factor; Future Chronic bronchitis, unspecified chronic bronchitis type (CMS/HCC) Doing well in this regard. Requests eval for power scooter. A power scooter would enable him to have more mobility and be able to engage in more social events and outings. He regularly uses rollator walker or cane to ambulate. Follow Up: Current Outpatient Medications on File Prior to Visit Medication Sig Dispense Refill acetaminophen (Tylenol) 500 MG tablet Take 1 tablet by mouth in the morning and 1 tablet at noon and 1 tablet in the evening and 1 tablet before bedtime. albuterol (2.5 MG/3ML) 0.083% nebulizer solution Take 3 mL (2.5 mg) by nebulization every 6 (six) hours if needed for wheezing or shortness of breath. 75 mL 1 aspirin 81 MG EC tablet Take 1 tablet (81 mg) by mouth Once daily. 90 tablet 3 cetirizine (ZyrTEC) 10 MG tablet Take 1 tablet by mouth at bed time. fluticasone furoate (Arnuity Ellipta) 100 MCG/ACT inhaler Inhale 1 puff in the morning. Rinse mouthwith water after use to reduce aftertaste and incidence of candidiasis. Do not swallow. 1 each 11 isosorbide mononitrate ER (Imdur) 30 MG 24 hr tablet TAKE 1 TABLET (30 MG) BY MOUTH IN THE MORNING 90 tablet 1 latanoprost (Xalatan) 0.005 % ophthalmic solution INSTILL 1 DROP IN EACH EYE AT BEDTIME 2.5 mL 3 lisinopril 5 MG tablet Take 1 tablet (5 mg) by mouth in the morning. 90 tablet 3 metoprolol succinate XL (Toprol-XL) 25 MG 24 hr tablet Take 1 tablet (25 mg) by mouth Once per day.30 tablet 1 montelukast (Singulair) 10 MG tablet TAKE 1 TABLET BY MOUTH EVERY DAY IN THE MORNING 90 tablet 1 nitroglycerin (Nitrostat) 0.[address] 1 tablet (0.4 mg) under the tongue every 5 (five) minutes if needed for chest pain. 100 tablet 0 omeprazole (PriLOSEC) [address] capsule TAKE 1 CAPSULE BY MOUTH EVERY DAY IN THE MORNING 90 capsule 1 rosuvastatin (Crestor) 40 MG tablet TAKE 1 TABLET BY MOUTH EVERYDAY AT BEDTIME 90 tablet 1 sertraline (Zoloft) 100 MG tablet Take 1 tablet by mouth in the morning. Skin Protectants, Misc. (Eucerin Original Healing) cream Apply 4 g topically 2 times daily. 454 g 5 ticagrelor (Brilinta) 90 MG tablet Take 1 tablet (90 mg) by mouth 2 times daily. 60 tablet 5 No current facility-administered medications on file prior to visit. documented in this encounter Plan of Treatment Upcoming Encounters Date Type Department Care Team (Late st Contact Info) Description 11/12/2024 11:00 AM EDT Office Visit [facility] [address] [place] [address] Meeta Nicholas ANP [address] [place], [place] [phone] Scheduled Orders Name Type Priority Associated Diagnoses Orde r Schedule Lipid Panel, Standard Lab Routine Coronary artery disease involving [place] coronary artery of [place] heart with angina pectoris (CMS/[facility]) Expected: 08/13/2024 (Approximate), Expires: 08/13/2025 Comprehensive Metabolic Panel Lab Routine Benign essential HTN Expected: 08/13/2024 (Approximate), Expires: 08/13/2025 Hemoglobin A1c Lab Routine Coronary artery disease involving [place] coronary artery of [place] heart with angina pectoris (CMS/HCC) Hyperlipidemia, unspecified hyperlipidemia type Expected: 08/13/2024 (Approximate), Expires: 08/13/2025 Sed Rate by Modified Westergren Lab Routine Polyarthralgia Expected: 08/13/2024, Expires: 08/13/2025 C-reactive Protein Lab Routine Polyarthralgia Expected: 08/13/2024 (Approximate), Expires: 08/13/2025 Cyclic Citrullinated Peptide (CCP) Antibody (IgG) Lab Routine Polyarthralgia Expected: 08/13/2024 (Approximate), Expires: 08/13/2025 Rheumatoid Factor Lab Routine Polyarthralgia Expected: 08/13/2024, Expires: 08/13/2025 Scheduled Referrals Name Type Priority Associated Diagnoses Orde r Schedule Referral to Physical Medicine Rehab Outpatient Referral Routine Coronary artery disease involving [place] coronary artery of [place] heart with angina pectoris (CMS/HCC) Polyarthralgia Chronic bronchitis, unspecified chronic bronchitis type (CMS/HCC) Expected: 08/13/2024 (Approximate), Expires: 08/13/2025 documented as of this encounter Visit Diagnoses Diagnosis Benign essential HTN- Primary Coronary artery disease involving [place] coronary artery of [place] heart with angina pectoris (CMS/HCC) Hyperlipidemia, unspecified hyperlipidemia type Healthcare maintenance Polyarthralgia Pain in joint, multiple sites Chronic bronchitis, unspecified chronic bronchitis type (CMS/HCC) documented in this encounter Additional Health Concerns Assessment Noted Time PHQ-9 Depression Total Score: 3 03/16/20 24 1:05 PM EST documented as of this encounter Care Teams Caption Writer Relationship Specialty Start Date End Date Meeta Nicholas ANP [address] [place] [phone] PCP - General Family Medicine 06/27/22 documented as of this encounter
--- OUTSIDE RECORDS SUMMARY | 2024-08-14 08:16 | XMS_ITS | Encounter Summary ---
Author Organization [facility] Address [address] [place] [address] Care Team Providers Care Paver Installer Name Role Phone Meeta Nicholas MARQUITA Primary Care Provider [phone] Encounter Details Date Type Department Care Team (Latest Contact Info) Description 08/13/2024 Travel Social History Tobacco Use Types Packs/Day Years [...] Description 11/12/2024 11:00 AM EDT Office Visit [facility] [address] [place] [address] Meeta Nicholas ANP [address] [place] [address] documented as of this encounter Visit Diagnoses Not on filedocumented in this encounter Additional Health Concerns Assessment Noted Time PHQ-9 Depression Total Score: 3 03/16/20 24 1:05 PM EST documented as of this encounter Care Teams Paver Installer Relationship Specialty Start Date End Date Meeta Nicholas ANP [address] [place] [phone] PCP - General Family Medicine 06/27/22 documented as of this encounter
--- OUTSIDE RECORDS SUMMARY | 2024-08-14 08:16 | XMS_ITS | Clinical Summary ---
Author Organization [employer] Address [address] [facility] [address] [place] [address] Care Team Providers Care Blister Pack Operator Name Role Phone Meeta Nicholas MARQUITA Primary Care Provider [phone] Allergies No known active allergies Medications acetaminophen (Tylenol) 500 MG tablet Take 1 tablet by mouth in the morning and 1 tablet at noon and 1 tablet in the evening and 1 tablet before bedtime. Active cetirizine (ZyrTEC) 10 MG tablet Take 1 tablet by mouth at bed time. Active sertraline (Zoloft) 100 MG tablet Take 1 tablet by mouth in the morning. Active fluticasone furoate (Arnuity Ellipta) 100 MCG/ACT inhalerIndicati ons:Mild persistent extrinsic asthma without complication Inhale 1 puff in the morning. Rinse mouth with water after use to reduce aftertaste and incidence of candidiasis. Do not swallow. 1 each Active lisinopril 5 MG tabletIndicatio ns:Benign essential HTN Take 1 tablet (5 mg) by mouth in the morning. 90 tablet 3 Active latanoprost (Xalatan) 0.005 % ophthalmic solution INSTILL 1 DROP IN EACH EYE AT BEDTIME 2.5 mL 3 Active nitroglycerin (Nitrostat) 0.4 MG SL tabletIndicatio ns:[place] coronary artery of [place] heart with stable angina pectoris (CMS/HCC) Place 1 tablet (0.4 mg) under the tongue every 5 (five) minutes if needed for chest pain. 100 tablet 07/02/2 024 Active Skin Protectants, Misc. (Eucerin Original Healing) creamIndication s:Dry skin Apply 4 g topically 2 times daily. 454 g 5 024 Active aspirin 81 MG EC tabletIndicatio ns:[place]ros[place] of [place] coronary artery of [place] heart with stable angina pectoris (CMS/HCC) Take 1 tablet (81 mg) by mouth Once daily. 90 tablet 3 024 Active albuterol (2.5 MG/3ML) 0.083% nebulizer solutionIndicat ions:Mild persistent extrinsic asthma without complication Take 3 mL (2.5 mg) by nebulization every 6 (six) hours if needed for wheezing or shortness of breath. 75 mL 1 024 Active isosorbide mononitrate ER (Imdur) 30 MG 24 hr tablet TAKE 1 TABLET (30 MG) BY MOUTH IN THE MORNING 90 tablet 1 024 Active omeprazole (PriLOSEC) [address] capsuleIndicati ons:Heartburn TAKE 1 CAPSULE BY MOUTH EVERY DAY IN THE MORNING 90 capsule 1 024 Active metoprolol succinate XL (Toprol-XL) 25 MG 24 hr tablet Take 1 tablet (25 mg) by mouth Once per day. 30 tablet 1 025 Active ticagrelor (Brilinta) 90 MG tablet Take 1 tablet (90 mg) by mouth 2 times daily. 60 tablet 5 025 Active rosuvastatin (Crestor) 40 MG tablet TAKE 1 TABLET BY MOUTH EVERYDAY AT BEDTIME 90 tablet 1 025 Active montelukast (Singulair) 10 MG tabletIndicatio ns:Mild persistent extrinsic asthma without complication TAKE 1 TABLET BY MOUTH EVERY DAY IN THE MORNING 90 tablet 1 025 Active Brilinta 90 MG tablet TAKE 1 TABLET BY MOUTH TWICE A DAY 60 tablet 5 023 2024 Discontinued(R eorder (will not trigger notification to Pharmacy)) metoprolol succinate XL (Toprol-XL) 25 MG 24 hr tablet Take 25 mg by mouth Once per day. 024 2024 Discontinued(R eorder (will not trigger notification to Pharmacy)) montelukast (Singulair) 10 MG tabletIndicatio ns:Mild persistent extrinsic asthma without complication TAKE 1 TABLET BY MOUTH EVERY DAY IN THE MORNING 90 tablet 1 024 2024 Discontinued rosuvastatin (Crestor) 40 MG tablet TAKE 1 TABLET BY MOUTH EVERYDAY AT BEDTIME 90 tablet 025 2024 Discontinued(R eorder (will not trigger notification to Pharmacy)) Active Problems Problem Noted Date Diagnosed Date History of colonoscopy 12/13/2023 Overview (12/13/2023): Colonoscopy 2019, Hx of LGIB 09/2019 - colo (Dr Conway) showed cecal ulcer with path showing nonspecific changes. x1 6-7mm tubular adenoma in cecum. Good prep. Cecal ulcer was though to be secondary to DAPT use. Next due per GI notes [id number]. Former smoker, stopped smoking in distant past 0 12/13/2023 Overview (12/13/2023): started smoking at 14 yo, smoked on and off until 20 years ago and stopped completely. Never smoked > 1 PPD. Benign essential HTN 12/13/2023 Cecal ulcer 03/18/2023 Overview (03/18/2023): Referred to GI for eval 10/2021 previous hx of cecal ulcer thought to be due to in the setting of dual antiplatelet therapy and plavix was stopped. In light of UT 09/2021 restarted on DAPT with Brilinta. Needs eval to ensure ulcer is resolved. Periodontal disease 12/10/2022 Generalized severe acute periodontitis 3 Dental calculus 10/18/2022 Dental abscess 10/18/2022 Acute non-ST segment elevation myocardial infarc tion 09/29/2021 Overview (04/02/2024): 09/28/2021 Patient presented to [facility] 09/28/21 with chest pain/transferred to [facility]. Upon arrival, chest pain resolved. Known hx of CAD, s/p stents, Pt had elevated troponin 1 at [facility]. Cardiac cath showed severe mid RCA stenosis. Found to have NSTEMi, stent place, EDP was low and was loaded with ticagrelor. Patient was discharged on DAPT. Referred to Cardiac Rehab. Now with 2 MIs-09/2021 (severe mid RCA stenosis, stent placed as above) & 03/04/2024 (per cardiology note 03/10/2024 he was transferred to [facility] and had normal coronary cath with patent stents and no new disease) On dual antiplatelet therapy with Brilinta and aspirin. Had cecal ulcer thought to be related to Plavix use in past and so was switched to Brilinta. On rosuvastatin 40mg daily Metoprolol succinate 25 mg once daily Isosorbide mononitrate ER 30 mg daily Brilinta 90 mg twice daily ASA 81mg daily Chronic bronchitis 08/13/2017 Vitamin D deficiency 05/27/2015 Coronary artery disease invo lving [place] coronary artery of [place] heart with angina pectoris 02/21/2015 Depressive disorder 04/19/2014 Asthma 10/31/2012 Atherosclerosis of coronary artery 10/31/2012 Hyperlipidemia 10/31/2012 Obesity 10/31/2012 Encounters Date Type Department Care Team Description 08/13/2024 11:15 AM EDT Office Visit [facility] [address] [place] [phone] Meeta Nicholas ANP Benign essential HTN (Primary Dx); Coronary artery disease involving [place] coronary artery of [place] heart with angina pectoris (CMS/HCC); Hyperlipidemia, unspecified hyperlipidemia type; Healthcare maintenance; Polyarthralgia; Chronic bronchitis, unspecified chronic bronchitis type (CMS/HCC) 08/13/2024 Travel 08/05/2024 Refill [facility] [address] [place] [phone] Meeta Nicholas ANP Mild persistent extrinsic asthma without complication 08/04/2024 Patient Outreach [facility] [address] [place] [phone] Meeta Nicholas ANP Pre-visit Planning (SDOH screening was completed on 06/12/2024) 07/27/2024 Refill [facility] [address] [place] [address] Meeta Nicholas ANP 07/27/2024 Telephone [facility] [address] [place] [phone] Meeta Nicholas ANP Med Refill 07/23/[address] [address] Meeta Nicholas ANP Med Refill 06/12/2024 Patient Outreach [facility] [address] [place] [phone] Meeta Nicholas ANP Pre-visit Planning (SDOH Screening negative and Tobacco screening negative) 05/22/2024 Refill [facility] [address] [place] [address] Meeta Nicholas ANP from Last 3 Months Immunizations Name Administration Dates Next Due Hep A, ped/adol, 2 dose 12/26/2007,09/29/2007 Hep B, adult 01/27/2010,12/26/2007,09/29/2007 Influenza injectable quadriv alent preservative free 02/05/2022,03/24/2021,01/20/2020,02/20,03/20/2016 Influenza, High Dose Seasona l, Preservative Free 03/16/2024 Influenza, IIV3, injectable 07/15/2007,1 ,04/15/2005,04/06,03/12/2003,03/11/2002,03/11/2001 ,04/15/2000,04/01/1997,03/30/1997 Influenza, Split (incl. maribell fied surface antigen) 05/20/2013,01/10/2012 Influenza, seasonal, injecta ble, preservative free 04/01/2014 Pfizer Covid-19 Vaccine 12+ 04/11/2023 Pneumococcal Conjugate PCV 20 01/07/2023 Pneumococcal Polysaccharide PPSV23 04/01/2014, RSV Bivalent 11/28/2023 TD (adult), 2 Lf tetanus tox oid, preservative free, adsorbed 01/07/2023,02/12/2003 Tdap 08/13/2012 Zoster, Recombinant 11/28/2023 Family History Medical History Relation Name Comments Diabetes Brother Prostate cancer Brother Asthma Other Heart disease Other Hypertension Other Mental illness Sister Relation Name Status Comments Brother Other Sister Social History Tobacco Use Types Packs/Day Years Used Date Smoking Tobacco: Never Smokeless Tobacco: Never Tobacco Cessation:Counseling Given: Not Answered Alcohol Use Standard Drinks/Week Comments Never 0 [...] Orientation Straight 03/12/2022 10 :14 AM EDT Last Filed Vital Signs Vital Sign Reading [...] Mass Index 30.96 08/13/2024 11:50 AM EDT Plan of Treatment Upcoming Encounters Date Type Department Care Team (Late st Contact Info) Description 11/12/2024 11:00 AM EDT Office Visit [facility] [address] [place] [address] Meeta Nicholas ANP [address] [place] [address] Health Maintenance Due Date Last Done Comments Anal Pap 1958 CT Colonography 1958 Dental Prophylaxis 1958 FIT DNA/Cologuard 1958 FIT 1958 FOBT 1958 Sigmoidoscopy 1958 Hepatitis C Screening 1976 Hepatitis A Vaccines (1 of 2 - Risk 2-dose series) 1977 12/26/2007, 09/29/2007 Colonoscopy 09/13/2022 09/14/2019, 01/13/2010 Colorectal Cancer Screening 09/13/2022 Dental Oral Exam 04/20/2023 10/18/2022 Dental X-Ray: Bitewings 10/20/2023 10/18/2022 COVID-19 Vaccine ( season) 2024 04/11/2023, 05/15/2021, 08/20/2020 Zoster Vaccines (2 of 2) 01/23/2024 11/28/2023 Depression Screening 03/16/2025 03/16/2024, 03/16/20 24 SDOH Screening 06/12/2025 06/12/2024 Alcohol/Substance Use Screening 08/13/2025 08/13/2024 Tobacco Screening 08/13/2025 08/13/2024 Dental X-Ray: Full Mouth 10/19/2025 10/18/2022 Lipid Panel 12/09/2028 12/10/2023, 04/19/2021 DTaP/Tdap/Td Vaccines (3 - Td or Tdap) 01/07/2033 01/07/2023, 08/13/2012, 02/12/2003 Hepatitis B Vaccines Completed 01/27/2010, 12/26/2007, 09/29/2007 Pneumococcal Vaccine: 50+ Years Completed 01/07/2023, 04/01/2014, 06/22/2010 RSV Patients and Patients Aged 60 years or older Completed 11/28/2023 Influenza Vaccine Completed 03/16/2024, , 03/24/2021, Additional history exists HIB Vaccines Aged Out No longer eligi ble based on patient's age to complete this topic HPV Vaccines Aged Out No longer eligi ble based on patient's age to complete this topic IPV Vaccines Aged Out No longer eligi ble based on patient's age to complete this topic Meningococcal Vaccine Aged Out No johanny julio eligible based on patient's age to complete this topic RSV under 20 months Aged Out No longe r eligible based on patient's age to complete this topic Rotavirus Vaccines Aged Out No longer eligible based on patient's age to complete this topic Procedures Procedure Name Priority Date/Time Associated Diagnosis Comments LIPID PANEL, STANDARD Routine 12/10/2023 12:05 PM EDT Coronary artery disease involving [place] coronary artery of [place] heart with angina pectoris ([facility]) Hyperlipidemia, unspecified hyperlipidemia type INTRAORAL - COMPLETE SERIES OF RADIOGRAPHIC IMAGES Routine 10/18/2022 11:00 AM EDT Generalized severe acute periodontitis Dental calculus Dental abscess PERIODIC ORAL EVALUATION - ESTABLISHED PATIENT Routine 10/18/2022 11:00 AM EDT HM COLONOSCOPY Routine 09/14/2019 from Last 3 Months or Most Recently Relevant to Health Maintenance Results * Lipid Panel, Standard (12/10/2023 12:05 PM EDT) Triglycerides 70 <150 mg/dL [facility] Comment:Desirable Triglyceri de: less than 150 mg/dLBorderline High Triglyceride 150-199 mg/dLHigh Triglyceride: 200-499 mg/dLVery High Triglyceride: greater than or equal to 5OO mg/dL Cholesterol 131 <200 mg/dL [facility] Comment:Desirable Cholestero l: less than 200 mg/dLBorderline High Cholesterol: 200-239 mg/dLHigh Cholesterol: greater than 239 mg/dL LDL Cholesterol Calculated 66 <100 mg/dL [facility] Comment:Desirable LDL: less than 100 mg/dLNear Optimal/Above Optimal LDL: 110- 129 mg/dLBorderline High LDL: 130-159 mg/dLHigh LDL: 160-189 mg/dLVery High LDL: greater than or equal to 190 mg/dL HDL Cholesterol 51 >40 mg/dL [facility] Comment:Desirable HDL: great er than 40 mg/dL Note: This HDL assay may give artificially low results in patients with liver disease. Blood Venous blood specimen / Unknown 12/10/2023 12:05 PM EDT 12/10/2023 1:45 PM EDT [facility] BLOOD ORDERABLES Final Resul t [facility] [address] [place], [place] [phone] [phone] * Colonoscopy (09/14/2019) Colonoscopy Normal Normal Historical Provider HEALTH MAINTENANCE Final Result from Last 3 Months or Most Recently Relevant to Health Maintenance Insurance [facility] - [facility] - [facility] Care Teams Blister Pack Operator Relationship Specialty Start Date End Date Meeta Nicholas ANP [address] [place] [phone] PCP - General Family Medicine 06/27/22
[2024-08-14 11:48] LABS: Estimated Average Glucose 117 mg/dL; Hemoglobin A1C 149.9797 umol/L; Hemoglobin A1c % 5.7 % (<6.0); Total Hemoglobin (HGBA1C) 3820.6573 umol/L
[2024-08-14 12:08] LABS: Erythrocyte Sedimentation Rate 7 MM/HR (0-15)
[2024-08-14 12:53] LABS: Rheumatoid Factor < 13.0 IU/mL (<15.0)
[2024-08-14 13:08] LABS: Alanine Aminotransferase 8 U/L (0-40); Alkaline Phosphatase 90 U/L (39-117); Anion Gap 9 (12-20); Aspartate Amino Transferase 24 U/L (5-37); Bilirubin Total 0.6 mg/dL (0.0-1.0); Blood Urea Nitrogen 17 mg/dL (9-16); C Reactive Protein < 0.10 mg/dL (< or = 0.50); Calcium 9.3 mg/dL (8.4-10.2); Carbon Dioxide 26 mmol/L (22-29); Chloride 107 mmol/L (96-108); Cholesterol 154 mg/dL (<200); Estimated Glomerular Filt Rate > 60; Glucose Random 86 mg/dL (60-115); HDL Cholesterol 54 mg/dL (>40); LDL Cholesterol Calculated 83 mg/dL (<100); Potassium 4.1 mmol/L (3.3-5.1); Sodium 138 mmol/L (135-145); Total Protein 7.1 g/dL (6.5-8.0); Triglycerides 86 mg/dL (<150)
[2024-08-18 06:44] LABS: Cyclic Citrullinated Peptide <16 UNITS
== END 2024-08-14 08:05 | disposition home or self-care (01) ==
LOC: HO.HHCL 08:04
PROVIDERS: Visit Provider Nurse Practitioner Primary Care
DX: I25.119 Atherosclerotic heart disease of native coronary artery with unspecified angina pectoris (principal); I10 Essential (primary) hypertension; E78.5 Hyperlipidemia, unspecified; M25.50 Pain in unspecified joint
CPT/HCPCS: 36415; 80053; 80061; 83036; 85652; 86140; 86200; 86431

== ENCOUNTER 2025-01-20 13:06 | Outpatient (AMB) | payer OTHER, SELFPAY ==
[2022-03-15 07:26] VITALS: BP 104/58; BP 112/62; BMI 32.8
--- NOTE | 2025-01-20 13:16 | A.OFFVIS_ITS ---
Vital Signs 01/20/25 13:18 Height 5 ft 3 in Weight 163 lb 2.273 oz BMI 28.9 BP 97/57 L Blood Pressure Location Lt brachial Position Sitting Pulse 73 Intake Visit Reasons: Hx of Polyps ,Discuss [facility] Intake Note: Sebastian presents in the office to discuss having a colo. CC: No concerns just due for a colo. Allergies No Known Allergies Allergy (Verified 01/20/25 13:19) HPI Comments Details: This is a 61y.o M with PMH of coronary artery disease s/p PCI 09/2021 on ASA and brillinta who is presenting for follow up on cecal ulcer. To recap patient has hx of LGIB 09/2019 - colo (Dr Conway) showed cecal ulcer with path showing nonspecific changes. x1 6-7mm tubular adenoma in cecum. Good prep. Cecal ulcer was though to be secondary to DAPT use. Previous colo to this was 2009 which was normal. Patient has been referred to GI as he is again on dual antiplatelet therapy. Sees Dr Edmond for Cardiology. Patient presents with his grandson/MAGNETIC PROSPECTING SUPERVISOR Xavi. Reports no gastrointestinal complaints to include abdominal pain, N,V, D, melena or hematochezia. Has good appetite. No unintentional weight loss. 01/20/25: Here for follow up. Accomopanied by grandsreekanth Macias who also helps interpret. Due for colonoscopy, had 7 mm T.A in cecum in 2019. ALso has a brother dx with colon cancer in his 60s. In terms of his CAD, had another NSTEMI 02/2024 for which he was transferred to [facility]. Diagnostic cath without any culprit lesion. Was advised to continue ASA and brillinta. Sees Dr Edmond and has a follow up next month. Otherwise, doing well. No chest pain, shortness of breath, no GI issues including abd pain, N,V, rectal bleeding. [facility] Medical History Left inguinal hernia Osteoarthritis GERD (gastroesophageal reflux disease) GI bleed Hyperlipidemia Hypertension Coronary artery disease Asthma Arthralgia Surgical History History of cardiac cath History of colonoscopy Family History Other CAD (coronary artery disease) Social History Household Members: Spouse Housing: Apartment Do you presently have visiting nurse or other home services: Yes (MAGNETIC PROSPECTING SUPERVISOR) Alcohol intake: former Patient Tobacco Use Status: Former Tobacco user Years Smoked: 8 +/- Second Hand Smoke Exposure: No service: No Current occupational status: disabled Review of Systems Const All systems reviewed & are unremarkable except as noted in HPI and below Physical Exam Exam Exam: No apparent distress Nonicteric Abdomen soft, nondistended Alert and oriented x3, normal gait Vital Signs: Last Vital Signs Pulse 73 01/20/25 13:18 BP 97/57 L 01/20/25 13:18 BMI result Body Mass Index 28.9 Assessment & Plan Assessment & Plan (1) Personal history of colonic polyps: Code(s): Z86.010 - Personal history of colon polyps Category: Medical (2) CAD (coronary artery disease): Comment: Prior stents to the LAD, RCA and circumflex Code(s): I25.10 - Atherosclerotic heart disease of [place] coronary artery without angina pectoris Category: Medical (3) Acute non-ST elevation myocardial infarction (NSTEMI): Code(s): I21.4 - Non-ST elevation (NSTEMI) myocardial infarction Category: Medical Plan 1. Hx of polyps: 2. NSTEMI 2023 Pt with hx of tubular adenoma in 2019. Also with fam hx. Due for a colo however has extensive CAD hx. Will need clearance from Cardiology. Has appt coming up next month. Plan: - [facility] to be booked - PEG prep prescribed and handout provided in [place] - Pt aware will await Cardiology clearance - will need to hold brillinta x 5 days. Follow up after colo Orders: Referrals GI Procedure Notification Z86.010 - Personal history of colon polyps Medications: New peg 3350-electrolytes 236-22.74-6.74 -5.86 gram (Golytely) as per split prep instructions, until fecal effluent is clear 240 mL PO Q10M 4,000 mL 0RF colonoscopy Coding Level of Care Code Est Pt Level 4 (50918) Diagnoses Personal history of colonic polyps Z86.010 CAD (coronary artery disease) I25.10 Acute non-ST elevation myocardial infarction (NSTEMI) I21.4
[2025-01-20 13:18] VITALS: BP 97/57; PULSE 73; BMI 28.9
--- OUTSIDE RECORDS SUMMARY | 2025-01-20 16:07 | XMS_ITS | Encounter Summary ---
Author Organization [email or web address] Address [address] [place] [address] Care Team Providers Care Astronautical Engineer Name Role Phone Meeta Nicholas Primary Care Provider [phone] Reason for Visit * Reason Comments Med Refill Encounter Details Date Type Department Care Team ([facility] st Contact Info) Description 10/04/2023 Refill [facility] [address] [place], [place] [phone] Meeta Nicholas ANP [address] [place], [place] [phone] Social History Tobacco Use Types Packs/Day Years [...] Care Team (Late st Contact Info) Description 03/19/2025 11:15 AM EST Office Visit [facility] [address] [place] [phone] Meeta Nicholas ANP [address] [place] [address] documented as of this encounter Visit Diagnoses Not on filedocumented in this encounter Additional Health Concerns Assessment Noted Time PHQ-9 Depression Total Score: 0 01/08/20 23 1:24 PM EDT documented as of this encounter Care Teams Astronautical Engineer Relationship Specialty Start Date End Date Meeta Nicholas ANP [address] [place] [phone] PCP - General Family Medicine 06/27/22 documented as of this encounter
--- OUTSIDE RECORDS SUMMARY | 2025-01-20 16:07 | XMS_ITS | Encounter Summary ---
Author Organization [employer] Address [address] [place] [address] Care Team Providers Care Skin Diving Teacher Name Role Phone Meeta Nicholas Primary Care Provider [phone] Encounter Details Date Type Department Care Team ([facility] st Contact Info) Description 03/16/2024 Orders Only [facility] [address] [place] [address] Meeta Nicholas ANP [address] [place] [address] Benign essential HTN Social History Tobacco Use [...] AM EDT documented as of this encounter Functional Status * Over the past 2 weeks, how often have you been bothered by any of the following problems? Question Answer Date of Assessment Author Patient Health Questionnaire-2 Score 0 08/2023 1:05 PM Pat Boyle MA * If you checked off any problems on this questionnaire so far, Question Answer Date of Assessment Author How difficult have these problems made it for you to do your work, take care of things at home, or get along with other people? Not difficult at all 03/16/2024 1:05 PM Pat Boyle MA * Over the last 2 weeks, how often have you been bothered by any of the following problems? Question Answer Date of Assessment Author Feeling nervous, anxious, or on edge 0 08/2023 1:06 PM Pat Boyle MA Not being able to stop or co ntrol worrying 1 03/16/2024 1:06 PM Pat Boyle M A Worrying too much about diff erent things 1 03/16/2024 1:06 PM Pat Boyle M A Trouble relaxing 1 03/16/2024 1:06 PM Pat Meraz MA Being so restless that it is hard to sit still 3 03/16/2024 1:06 PM Pat Boyle M A Feeling afraid as if somethi ng awful might happen 0 03/16/2024 1:06 PM Pat Boyle M A * Over the past 2 weeks, how often have you been bothered by any of the following problems? Question Answer Date of Assessment Author Little interest or pleasure in doing things Not at all 03/16/2024 1:05 PM Pat Boyle M A Feeling down, depressed, or hopeless Not at all 03/16/2024 1:05 PM Pat Boyle M A Trouble falling or staying asleep, or sleeping too much Several days 03/16/2024 1:05 PM Pat Boyle MA Feeling tired or having melany le energy Several days 03/16/2024 1:05 PM Pat Boyle M A Poor appetite or overeating Not at all 03/16/2024 1: 05 PM Pat Boyle MA Feeling bad about yourself - or that you are a failure or have let yourself or your family down Not at all 03/16/2024 1:05 PM Pat Boyle M A Trouble concentrating on things, such as reading the newspaper or watching television Not at all 03/16/2024 1:05 PM Pat Boyle M A Moving or speaking so slowly that other people could have noticed? Or the opposite - being so fidgety or restless that you have been moving around a lot more than usual. Several days 03/16/2024 1:05 PM Pat Boyle MA Thoughts that you would be better off or hurting yourself in some way Not at all 03/16/2024 1:05 PM Pat Boyle MA Patient Health Questionnaire -9 Score 3 03/16/2024 1:05 PM Pat Boyle M A documented as of this encounter Plan of Treatment Upcoming Encounters Date Type Department Care Team (Late st Contact Info) Description 03/19/2025 11:15 AM EST Office Visit [facility] [address] [place] [address] Meeta Nicholas ANP [address] [place] [address] documented as of this encounter Visit Diagnoses Diagnosis Benign essential HTN documented in this encounter Additional Health Concerns Assessment Noted Time PHQ-9 Depression Total Score: 3 03/16/20 24 1:05 PM EST documented as of this encounter Care Teams Skin Diving Teacher Relationship Specialty Start Date End Date Meeta Nicholas ANP [address] [place] [address] PCP - General Family Medicine 06/27/22 documented as of this encounter
--- OUTSIDE RECORDS SUMMARY | 2025-01-20 16:07 | XMS_ITS | Encounter Summary ---
Author Organization [employer] Address [address] [place] [address] Care Team Providers Care Target Worker Name Role Phone Meeta Nicholas Primary Care Provider [phone] Reason for Visit * Reason Comments Med Refill Encounter Details Date Type Department Care Team (Late st Contact Info) Description 11/24/2023 Refill [facility] [address] [place], [place] [phone] Meeta Nicholas ANP [address] [place] [address] Essential hypertension Social History Tobacco Use Types [...] Description 03/19/2025 11:15 AM EST Office Visit [facility] [address] [place] [address] Meeta Nicholas ANP [address] [place] [address] documented as of this encounter Visit Diagnoses Diagnosis Essential hypertension Unspecified essential hypertension documented in this encounter Additional Health Concerns Assessment Noted Time PHQ-9 Depression Total Score: 0 01/08/20 23 1:24 PM EDT documented as of this encounter Care Teams Target Worker Relationship Specialty Start Date End Date Meeta Nicholas ANP [address] [place] [address] PCP - General Family Medicine 06/27/22 documented as of this encounter
--- OUTSIDE RECORDS SUMMARY | 2025-01-20 16:07 | XMS_ITS | Encounter Summary ---
Author Organization [employer] Address [address] 7[address] [place] [address] Care Team Providers Care Supervisor Shop Name Role Phone Meeta Nicholas Primary Care Provider [phone] Reason for Visit * Reason Onset Date Comments New Med Request 02/04/2024 Encounter Details Date Type Department Care Team ([facility] st Contact Info) Description 02/04/2024 Telephone [facility] MEDICINE [address] [place], [place] [phone] Meeta Nicholas ANP 230 [place], [place] [phone] New Med Request Social History Tobacco Use [...] AM EDT Telephone call to pt using [employer] #[id number] to inquire about below message for lotion. [...] Description 03/19/2025 11:15 AM EST Office Visit [facility] MEDICINE [address] [place], [place] [phone] Meeta Nicholas ANP [address] [place] [address] documented as of this encounter Visit Diagnoses Not on filedocumented in this encounter Additional Health Concerns Assessment Noted Time PHQ-9 Depression Total Score: 0 01/08/20 23 1:24 PM EDT documented as of this encounter Care Teams Supervisor Shop Relationship Specialty Start Date End Date Meeta Nicholas ANP [address] [place] [address] PCP - General Family Medicine 06/27/22 documented as of this encounter
--- OUTSIDE RECORDS SUMMARY | 2025-01-20 16:07 | XMS_ITS | Encounter Summary ---
Author Organization [employer] Address [address] [facility] 7t [place] [address] Care Team Providers Care Racebook Writer Name Role Phone Meeta Nicholas Primary Care Provider [phone] Reason for Visit * Reason Comments Med Refill Encounter Details Date Type Department Care Team (Late st Contact Info) Description 02/02/2023 Refill [facility] MEDICINE [address] [place] [address] [phone] Mariposa Henry MD [address] [place] [address] [phone] Heartburn Social History Tobacco Use Types Packs/Day [...] Description 03/19/2025 11:15 AM EST Office Visit [facility] MEDICINE [address] [place] [address] [phone] Meeta Nicholas ANP 230 [place], [place] [phone] documented as of this encounter Visit Diagnoses Diagnosis Heartburn documented in this encounter Additional Health Concerns Assessment Noted Time PHQ-9 Depression Total Score: 0 01/08/20 23 1:24 PM EDT documented as of this encounter Care Teams Racebook Writer Relationship Specialty Start Date End Date Meeta Nicholas ANP [address] [place] [address] PCP - General Family Medicine 06/27/22 documented as of this encounter
--- OUTSIDE RECORDS SUMMARY | 2025-01-20 16:07 | XMS_ITS | Encounter Summary ---
Author Organization [employer] Address [address] [facility] [address] [facility] [address] [address] 7t [place] [address] Care Team Providers Care Vacuum Drum Drier Operator Name Role Phone Meeta Nicholas Primary Care Provider [phone] Reason for Visit * Reason Onset Date Comments Med Refill 10/18/2023 Encounter Details Date Type Department Care Team ([facility] st Contact Info) Description 10/18/2023 Telephone [facility] MEDICINE 230 [place], [place] [phone] Meeta Nicholas ANP 230 [place], [place] [phone] Med Refill Social History Tobacco Use Types [...] 8:58 AM EDT Medication was sent to [facility] #[id number] on 07/08/23 #30 with 3 refills. * Telephone Encounter - Jacqueline El - 10/18/2023 8:53 AM EDT TC from pt requesting medication refill. Medications needing refill : rosuvastatin (Crestor) 40 MG tablet To be sent to: [facility]/pharmacy #1 - [place] - [address] [place] [address] documented in this encounter Plan of Treatment Upcoming Encounters Date Type Department Care Team (Late st Contact Info) Description 03/19/2025 11:15 AM EST Office Visit [facility]INE [address] [place] [address] Meeta Nicholas ANP 230 [place] [address] documented as of this encounter Visit Diagnoses Not on filedocumented in this encounter Additional Health Concerns Assessment Noted Time PHQ-9 Depression Total Score: 0 01/08/20 23 1:24 PM EDT documented as of this encounter Care Teams Vacuum Drum Drier Operator Relationship Specialty Start Date End Date Meeta Nicholas ANP [address] [place] [address] PCP - General Family Medicine 2/15/23 documented as of this encounter
--- OUTSIDE RECORDS SUMMARY | 2025-01-20 16:07 | XMS_ITS | Encounter Summary ---
Author Organization [employer] Address [address] [facility] [address] [address] 7t [place] [address] Care Team Providers Care Insurance Sales Assistant Name Role Phone Meeta Nicholas Primary Care Provider [phone] Reason for Visit * Reason Comments Med Change Request Encounter Details Date Type Department Care Team ([facility] st Contact Info) Description 08/21/2024 Refill [facility] MEDICINE 230 [place], [place] [phone] Meeta Nicholas ANP 230 [place], [place] [phone] Social History Tobacco Use Types Packs/Day Years [...] Description 03/19/2025 11:15 AM EST Office Visit [facility] MEDICINE [address] [place] [phone] Meeta Nicholas ANP [address] [place] [phone] documented as of this encounter Visit Diagnoses Not on filedocumented in this encounter Additional Health Concerns Assessment Noted Time PHQ-9 Depression Total Score: 3 03/16/20 24 1:05 PM EST documented as of this encounter Care Teams Insurance Sales Assistant Relationship Specialty Start Date End Date Meeta Nicholas ANP [address] [place] [address] PCP - General Family Medicine 06/27/22 documented as of this encounter
--- OUTSIDE RECORDS SUMMARY | 2025-01-20 16:07 | XMS_ITS | Encounter Summary ---
Author Organization [employer] Address [address] [facility] [address] [facility] [address] 7[address] [place] [address] Care Team Providers Care Leasing Consultant Name Role Phone Meeta Nicholas Primary Care Provider [phone] Reason for Visit * Reason Comments Med Refill Encounter Details Date Type Department Care Team ([facility] st Contact Info) Description 01/19/2025 Refill [facility] MEDICINE 230 [place], [place] [phone] Meeta Nicholas ANP 230 [place], [place] [phone] Mild persistent extrinsic asthma without complication Social History Tobacco Use Types Packs/Day Years [...] Description 03/19/2025 11:15 AM EST Office Visit [facility] MEDICINE [address] [place] [phone] Meeta Nicholas ANP 230 [place] [address] documented as of this encounter Visit Diagnoses Diagnosis Mild persistent extrinsic asthma without complication documented in this encounter Additional Health Concerns Assessment Noted Time PHQ-9 Depression Total Score: 3 03/16/20 24 1:05 PM EST documented as of this encounter Care Teams Leasing Consultant Relationship Specialty Start Date End Date Meeta Nicholas ANP [address] [place] [address] PCP - General Family Medicine 06/27/22 documented as of this encounter
--- OUTSIDE RECORDS SUMMARY | 2025-01-20 16:07 | XMS_ITS | Encounter Summary ---
Author Organization [employer] Address [address] 7[address] [place] [address] Care Team Providers Care Document Design Specialist Name Role Phone Meeta Nicholas Primary Care Provider [phone] Reason for Visit * Reason Comments Med Refill Encounter Details Date Type Department Care Team ([facility] st Contact Info) Description 10/22/2023 Refill [facility] MEDICINE 230 [place], [place] [phone] Meeta Nicholas ANP 230 [place], [place] [phone] Social History Tobacco Use Types Packs/Day Years [...] Description 03/19/2025 11:15 AM EST Office Visit [facility] MEDICINE [address] [place] [address] Meeta Nicholas ANP 230 [place] [address] documented as of this encounter Visit Diagnoses Not on filedocumented in this encounter Additional Health Concerns Assessment Noted Time PHQ-9 Depression Total Score: 0 01/08/20 23 1:24 PM EDT documented as of this encounter Care Teams Document Design Specialist Relationship Specialty Start Date End Date Meeta Nicholas ANP [address] [place] [address] PCP - General Family Medicine 06/27/22 documented as of this encounter
--- OUTSIDE RECORDS SUMMARY | 2025-01-20 16:07 | XMS_ITS | Encounter Summary ---
Author Organization [employer] Address [address] [facility] [facility] [address] 7[address] [place] [address] Care Team Providers Care Potable Water Treatment Operator Name Role Phone Meeta Nicholas Primary Care Provider [phone] Reason for Visit * Reason Onset Date Comments Med Refill 07/23/2024 Encounter Details Date Type Department Care Team ([facility] st Contact Info) Description 07/23/2024 Telephone [facility] MEDICINE 230 [place], [place] [phone] Meeta Nicholas ANP 230 [place], [place] [phone] Med Refill Social History Tobacco Use Types [...] 24 hr tablet To be sent to: [facility]/pharmacy #[address] [place] [address] documented in this encounter Plan of Treatment Upcoming Encounters Date Type Department Care Team (Late st Contact Info) Description 03/19/2025 11:15 AM EST Office Visit [facility] MEDICINE 230 [place] [address] Meeta Nicholas ANP 230 [place], [place] [phone] documented as of this encounter Visit Diagnoses Not on filedocumented in this encounter Additional Health Concerns Assessment Noted Time PHQ-9 Depression Total Score: 3 03/16/20 24 1:05 PM EST documented as of this encounter Care Teams Potable Water Treatment Operator Relationship Specialty Start Date End Date Meeta Nicholas ANP 230 [place] [address] PCP - General Family Medicine 06/27/22 documented as of this encounter
--- OUTSIDE RECORDS SUMMARY | 2025-01-20 16:07 | XMS_ITS | Encounter Summary ---
Author Organization [employer] [facility] Address [address] [facility] 7t [place] [address] Care Team Providers Care Cnmt Name Role Phone Jacqueline Carey MD Primary Care Provider Meeta Middleton Primary Care Provider Encounter Details Date Type Department Care Team (Latest Contact Info) Description 09/11/2018 Abstract [facility] CONVERSIONS Dental, Provider, DDS Social History Tobacco [...] Description 03/19/2025 11:15 AM EST Office Visit [facility] MEDICINE 230 [place] [address] Meeta Nicholas ANP 230 [place] [address] documented as of this encounter Visit Diagnoses Not on filedocumented in this encounter Care Teams Cnmt Relationship Specialty Start Date End Date Jacqueline Carey MD PCP - General Family Medicine 04/02/19 06/26/22 Meeta Nicholas ANP 230 [place], [place] [phone] PCP - General Family Medicine 06/27/22 documented as of this encounter
--- OUTSIDE RECORDS SUMMARY | 2025-01-20 16:07 | XMS_ITS | Encounter Summary ---
Author Organization [employer] Address [address] [address] [facility] [address] 7t [place] [address] Care Team Providers Care Pecan Mallow Dipper Name Role Phone Meeta Nicholas Primary Care Provider [phone] Reason for Visit * Reason Onset Date Comments Durable Medical Equipment 01/20/2025 Encounter Details Date Type Department Care Team ([facility] st Contact Info) Description 01/20/2025 Telephone [facility] MEDICINE 230 [place], [place] [phone] Meeta Nicholas ANP 230 [place], [place] [phone] Durable Medical Equipment Social History Tobacco Use Types Packs/Day Years [...] encounter Miscellaneous Notes * Telephone Encounter - Ángela Brewer - 01/20/2025 10:11 AM EDT General prescription form for Scooter from [employer] and mobility sent to PCP for signature via [employer]. Once signed, will be faxed to [employer] and [employer] and sent to scan. If patient calls to check status on above, please advise them to contact [employer] and [employer] at [phone]. documented in this encounter Plan of Treatment Upcoming Encounters Date Type Department Care Team (Late st Contact Info) Description 03/19/2025 11:15 AM EST Office Visit [facility] MEDICINE 230 [place] [address] Meeta Nicholas ANP 230 [place] [address] documented as of this encounter Visit Diagnoses Not on filedocumented in this encounter Additional Health Concerns Assessment Noted Time PHQ-9 Depression Total Score: 3 03/16/20 24 1:05 PM EST documented as of this encounter Care Teams Pecan Mallow Dipper Relationship Specialty Start Date End Date Meeta Nicholas ANP [address] [place] [address] PCP - General Family Medicine 2/15/23 documented as of this encounter
--- OUTSIDE RECORDS SUMMARY | 2025-01-20 16:07 | XMS_ITS | Encounter Summary ---
Author Organization [employer] Address [address] 7t [place] [address] Care Team Providers Care Marine Drafter Name Role Phone Meeta Nicholas Primary Care Provider [phone] Reason for Visit * Reason Onset Date Comments Medication Question 05/29/2023 Encounter Details Date Type Department Care Team ([facility] st Contact Info) Description 05/29/2023 Telephone [facility] MEDICINE 230 [place], [place] [phone] Meeta Nicholas ANP 230 [place], [place] [phone] Medication Question Social History Tobacco Use Types [...] 2:34 PM EST Outgoing call to pt's [facility] regarding below message. They stated can refill requested eye drops and will now. They think maybe hospital staff pharmacist was confused because pt has 2 different eye drops and one was one time use for after his cataract surgery. Inquired about montelukast. They stated last prescribed was Dr Carey in August of 2021. Telephone call placed to [facility]. Pt answered. Informed eye drops will be ready for tack picker in an hour at [facility]. Inquired about montelukast since pt hasn't had it in a long time and is now requesting it. Pt reports worsening allergies and asthma. Pt speaking in full sentences. Denies current exacerbation. * Telephone Encounter - Sana Pires - 05/31/2023 9:24 AM EST Tc from pt in regards below, please contact pt. * Telephone Encounter - Cartlon Leonardo - 05/29/2023 11:51 AM EST Tc from Xavi Bojorquez/LENY stating called [facility] for latanoprost (Xalatan) 0.005 % ophthalmic solution, [facility] denied refill and informed him it was a one time prescription but on pt's med list it shows 6 refills. [facility] is also requesting clarification on montelukast 10 mg which they stated it was pr escribed by pcp (web content writer did not see medication on med list). Please contact [facility] at [phone]. documented in this encounter Plan of Treatment Upcoming Encounters Date Type Department Care Team ([facility] st Contact Info) Description 03/19/2025 11:15 AM EST Office Visit [facility] MEDICINE 230 [place] [address] Meeta Nicholas ANP 230 [place] [address] documented as of this encounter Visit Diagnoses Not on filedocumented in this encounter Additional Health Concerns Assessment Noted Time PHQ-9 Depression Total Score: 0 01/08/20 23 1:24 PM EDT documented as of this encounter Care Teams Marine Drafter Relationship Specialty Start Date End Date Meeta Nicholas ANP [address] [place] [address] PCP - General Family Medicine 06/27/22 documented as of this encounter
--- OUTSIDE RECORDS SUMMARY | 2025-01-20 16:07 | XMS_ITS | Encounter Summary ---
Author Organization [employer] Address [address] [facility] [address] 7t [place] [address] Care Team Providers Care Licensed Occupational Therapy Assistant Name Role Phone Meeta Nicholas Primary Care Provider [phone] Reason for Visit * Reason Comments Med Refill Encounter Details Date Type Department Care Team ([facility] st Contact Info) Description 05/13/2024 Refill [facility] MEDICINE 230 [place], [place] [phone] Meeta Nicholas ANP 230 [place], [place] [phone] Benign essential HTN Social History Tobacco Use [...] Description 03/19/2025 11:15 AM EST Office Visit [facility] MEDICINE [address] [place] [address] Meeta Nicholas ANP [address] [place] [address] documented as of this encounter Visit Diagnoses Diagnosis Benign essential HTN documented in this encounter Additional Health Concerns Assessment Noted Time PHQ-9 Depression Total Score: 3 03/16/20 24 1:05 PM EST documented as of this encounter Care Teams Licensed Occupational Therapy Assistant Relationship Specialty Start Date End Date Meeta Nicholas ANP [address] [place] [address] PCP - General Family Medicine 06/27/22 documented as of this encounter
--- OUTSIDE RECORDS SUMMARY | 2025-01-20 16:08 | XMS_ITS | Clinical Summary ---
Author Organization [employer] Address [address] [facility] [address] [place] [address] Care Team Providers Care Shade Maker Name Role Phone Meeta Nicholas Primary Care Provider Allergies No known active allergies Medications acetaminophen (Tylenol) 500 MG tablet Take 1 tablet by mouth in the morning and 1 tablet at noon and 1 tablet in the evening and 1 tablet before bedtime. Active cetirizine (ZyrTEC) 10 MG tablet Take 1 tablet by mouth at bed time. 08/22/19 22 Active sertraline (Zoloft) 100 MG tablet Take 1 tablet by mouth in the morning. 07/10/19 22 Active fluticasone furoate (Arnuity Ellipta) 100 MCG/ACT inhalerIndicati ons:Mild persistent extrinsic asthma without complication Inhale 1 puff in the morning. Rinse mouth with water after use to reduce aftertaste and incidence of candidiasis. Do not swallow. 1 each 08/13/19 24 Active Additional Information Patient not taking.Reported on 11/12/2024 latanoprost (Xalatan) 0.005 % ophthalmic solution INSTILL 1 DROP IN EACH EYE AT BEDTIME 2.5 mL 3 10/08/19 24 Active nitroglycerin (Nitrostat) 0.4 MG SL tabletIndicatio ns:Atherosclero sis of [place] coronary artery of [place] heart with stable angina pectoris (CMS/HCC) Place 1 tablet (0.4 mg) under the tongue every 5 (five) minutes if needed for chest pain. 100 tablet 11/12/19 24 Active Skin Protectants, Misc. (Eucerin Original Healing) creamIndication s:Dry skin Apply 4 g topically 2 times daily. 454 g 5 02/13/20 24 Active aspirin 81 MG EC tabletIndicatio ns:Atherosclero sis of [place] coronary artery of [place] heart with stable angina pectoris (CMS/HCC) Take 1 tablet (81 mg) by mouth Once daily. 90 tablet 3 03/16/20 24 Active albuterol (2.5 MG/3ML) 0.083% nebulizer solutionIndicat ions:Mild persistent extrinsic asthma without complication Take 3 mL (2.5 mg) by nebulization every 6 (six) hours if needed for wheezing or shortness of breath. 75 mL 1 03/16/20 24 Active ticagrelor (Brilinta) 90 MG tablet Take 1 tablet (90 mg) by mouth 2 times daily. 60 tablet 5 07/28/19 25 Active rosuvastatin (Crestor) 40 MG tablet TAKE 1 TABLET BY MOUTH EVERYDAY AT BEDTIME 90 tablet 1 07/28/19 25 Active lisinopril 5 MG tabletIndicatio ns:Benign essential HTN TAKE 1 TABLET BY MOUTH EVERY DAY IN THE MORNING 90 tablet 3 09/03/19 25 Active metoprolol succinate XL (Toprol-XL) 25 MG 24 hr tabletIndicatio ns:Coronary artery disease involving [place] coronary artery of [place] heart with angina pectoris (CMS/HCC),Benig n essential HTN TAKE 1 TABLET (25 MG) BY MOUTH ONCE PER DAY. 90 tablet 1 09/24/19 25 Active isosorbide mononitrate ER (Imdur) 30 MG 24 hr tablet TAKE 1 TABLET (30 MG) BY MOUTH IN THE MORNING 90 tablet 1 11/10/19 25 Active omeprazole (PriLOSEC) [address] capsuleIndicati ons:Heartburn TAKE 1 CAPSULE BY MOUTH EVERY DAY IN THE MORNING 90 capsule 1 11/10/19 25 Active montelukast (Singulair) 10 MG tabletIndicatio ns:Mild persistent extrinsic asthma without complication TAKE 1 TABLET BY MOUTH EVERY DAY IN THE MORNING 90 tablet 1 01/20/20 25 Active montelukast (Singulair) 10 MG tabletIndicatio ns:Mild persistent extrinsic asthma without complication TAKE 1 TABLET BY MOUTH EVERY DAY IN THE MORNING 90 tablet 1 08/06/19 25 2024 Discontinued Active Problems Problem Noted Date Diagnosed Date Antiplatelet or antithrombotic long-term use 08/2024 History of colonic polyps 12/14/2024 Nocturnal enuresis 12/14/2024 Overview (12/14/2024): Needs Chux pads, gloves, wipes for overnight urinary leakage History of colonoscopy 12/13/2023 Overview (12/13/2023): Colonoscopy 2019, Hx of LGIB 09/2019 - colo (Dr Conway) showed cecal ulcer with path showing nonspecific changes. x1 6-7mm tubular adenoma in cecum. Good prep. Cecal ulcer was though to be secondary to DAPT use. Next due per GI notes [id number]. Former smoker, stopped smoking in distant past [...] and plavix was stopped. In light of NH 09/2021 restarted on DAPT with Brilinta. Needs eval to ensure ulcer is resolved. Periodontal disease 12/10/2022 Generalized severe acute periodontitis 3 Dental calculus 10/18/2022 Dental abscess 10/18/2022 Acute non-ST segment elevation myocardial infarc tion 09/29/2021 Overview (04/02/2024): 09/28/2021 Patient presented to [facility] 09/28/21 with chest pain/transferred to [facility]. Upon arrival, chest pain resolved. Known hx of CAD, s/p stents, Pt had elevated troponin 1 at [facility]. Cardiac cath showed severe mid RCA stenosis. Found to have NSTEMi, stent place, EDP was low and was loaded with ticagrelor. Patient was discharged on DAPT. Referred to Cardiac Rehab. Now with 2 MIs-09/2021 (severe mid RCA stenosis, stent placed as above) & 03/04/2024 (per cardiology note 03/10/2024 he was transferred to [facility] and had normal coronary cath with [...] deficiency 05/27/2015 Coronary artery disease invo lving santee sioux coronary artery of [place] heart with angina pectoris 02/21/2015 Depressive disorder 04/19/2014 Asthma 10/31/2012 Atherosclerosis of coronary artery 10/31/2012 Hyperlipidemia 10/31/2012 Obesity 10/31/2012 Encounters Date Type Department Care Team Description 01/20/2025 Telephone [facility] [address] [place] [address] Meeta Nicholas ANP Durable Medical Equipment 01/19/2025 Refill [facility] [address] [place] [address] Meeta Nicholas ANP Mild persistent extrinsic asthma without complication 01/12/2025 Telephone [facility] [address] [place] [address] Meeta Nicholas ANP November recall 12/18/2024 Telephone [facility] OPTOMETRY [address] [place] [address] Vel, Alea, OD 12/15/2024 Telephone [facility] [address] [place] [address] Meeta Nicholas ANP Durable Medical Equipment 11/18/2024 Telephone [facility] [address] [place] [address] Meeta Nicholas ANP Medication Question 11/12/2024 11:00 AM EDT Office Visit [facility] [address] [place] [address] Meeta Nicholas ANP Benign essential HTN (Primary Dx); Coronary artery disease involving s[place] sioux coronary artery of s[place] si[place] heart with angina pectoris (CMS/HCC); Mixed hyperlipidemia; Depressive disorder; Osteoporosis without current pathological fracture, unspecified osteoporosis type; Fibromyalgia; Screening for malignant neoplasm of colon; Nocturnal enuresis 11/12/2024 Travel 11/11/2024 Telephone [facility] [address] [place] [address] Meeta Nicholas ANP Chart Prep 11/07/2024 Refill [facility] [address] [place] [address] Meeta Nicholas ANP Heartburn from Last 3 Months Immunizations Immunization Administration Dates Next Due Hep A, ped/adol, [...] free, adsorbed 01/07/2023,02/12/2003 Tdap 08/13/2012 Zoster, Recombinant 12/16/2024,11/28/2023 Family History Medical History Relation Name Comments [...] Sign Reading Time Taken Comments Blood Pressure 108/70 11/12/2024 11:06 AM EDT Pulse 70 11/12/2024 11:06 AM EDT Temperature 36.3 C (97.3 F) 08/13/2024 11:50 AM EDT Respiratory Rate 20 11/12/2024 11:06 AM EDT Oxygen Saturation 98% 08/13/2024 11:50 AM EDT Inhaled Oxygen Concentration - - Weight 78 kg (172 lb) 11/12/2024 11:06 AM EDT Height 160 cm (5' 3 ) 11/12/2024 11:06 AM EDT Body Mass Index 30.47 11/12/2024 11:06 AM EDT Plan of Treatment Upcoming Encounters Date Type Department Care Team (Late st Contact Info) Description 03/19/2025 11:15 AM EST Office Visit [facility] [address] [place] [address] Meeta Nicholas ANP [address] [place] [address] Health Maintenance Due Date Last Done Comments [...] Bitewings 10/20/2023 10/18/2022 COVID-19 Vaccine ( season) 2025 04/11/2023, 05/15/2021, 08/20/2020 Influenza Vaccine (#1) 2025 , 02/05/2022, 03/24/2021, Additional history exists Depression Screening 03/16/2025 03/16/2024, 03/16/20 24 SDOH Screening 06/12/2025 06/12/2024 Alcohol/Substance Use Screening 08/13/2025 08/13/2024 Diabetes: Hemoglobin A1C 08/14/2025 08/14/2024, 1212/2020 Dental X-Ray: Full Mouth 10/19/2025 10/18/2022 Tobacco Screening 11/12/2025 11/12/2024 Lipid Panel 08/14/2029 08/14/2024, 11/12, 04/19/2021 DTaP/Tdap/Td Vaccines (3 - Td or Tdap) 01/07/2033 01/07/2023, 08/13/2012, 02/12/2003 Hepatitis B Vaccines Completed 01/27/2010, 12/26/2007, 09/29/2007 Pneumococcal Vaccine: 50+ Years Completed 01/07/2023, 04/01/2014, 06/22/2010 RSV Patients and Patients Aged 60 years or older Completed 11/28/2023 Zoster Vaccines Completed 12/16/2024, 11/28/2023 HIB Vaccines Aged Out No longer eligi ble based on patient's age to complete this topic HPV Vaccines Aged Out No longer eligi ble based on patient's age to complete this topic IPV Vaccines Aged Out No longer eligi ble based on patient's age to complete this topic Meningococcal B Vaccine Aged Out No l onger eligible based on patient's age to complete [...] Procedure Name Priority Date/Time Associated Diagnosis Comments HEMOGLOBIN A1C Routine 08/14/2024 8:08 AM EDT Coronary artery disease involving s[place] coronary artery of [place] heart with angina pectoris ([facility]) Hyperlipidemia, unspecified hyperlipidemia type LIPID PANEL, STANDARD Routine 08/14/2024 8:08 AM EDT Coronary artery disease involving s[place] si[place] coronary artery of [place] heart with angina pectoris ([facility]) INTRAORAL - COMPLETE SERIES OF RADIOGRAPHIC IMAGES Routine 10/18/2022 11:00 AM EDT Generalized severe acute periodontitis Dental calculus Dental abscess PERIODIC ORAL EVALUATION - ESTABLISHED PATIENT Routine 10/18/2022 11:00 AM EDT HM COLONOSCOPY Routine 09/14/2019 from Last 3 Months or Most Recently Relevant to Health Maintenance Results * Hemoglobin A1c (08/14/2024 8:08 AM EDT) Hemoglobin A1c 5.7 <6.0 % [facility] Comment:Hemoglobin A1C Refer ence Range Adults: 4.8 - 6.0 % Non diabetic: < 6.0 % Goal: < 7.0 %Additional Action Suggested: > 8.0 %Note: Hemoglobin A1c results are invalid for patients with abnormal amounts of HbF. Blood transfusions may impact the HbA1c concentration in the patient sample. Estimated Average Glucose 117 mg/dL [facility] Comment:eAG = Estimated ave rage glucose which is %A1C expressed asaverage glucose, using the formula of the X2C-CktuzksOjpqdis Glucose study (ADAG), Diabetes Care, Vol.31,#8,Dec. 2007 Blood Venous blood specimen / Unknown 08/14/2024 8:08 AM EDT 08/14/2024 11:21 AM EDT Meeta Nicholas ANP LAB BLOOD ORDERABLES Final Resul t Performing Organization Address City/[facility] Co de Phone Number [facility] [address] [place] [phone] * Lipid Panel, Standard (08/14/2024 8:08 AM EDT) Triglycerides 86 <150 mg/dL [facility] Comment:Desirable Triglyceri de: less than 150 mg/dLBorderline High Triglyceride 150-199 mg/dLHigh Triglyceride: 200-499 mg/dLVery High Triglyceride: greater than or equal to 5OO mg/dL Cholesterol 154 <200 mg/dL [facility] Comment:Desirable Cholestero l: less than 200 mg/dLBorderline High Cholesterol: 200-239 mg/dLHigh Cholesterol: greater than 239 mg/dL LDL Cholesterol Calculated 83 <100 mg/dL [facility] Comment:Desirable LDL: less than 100 mg/dLNear Optimal/Above Optimal LDL: 110- 129 mg/dLBorderline High LDL: 130-159 mg/dLHigh LDL: 160-189 mg/dLVery High LDL: greater than or equal to 190 mg/dL HDL Cholesterol 54 >40 mg/dL [facility] Comment:Desirable HDL: great er than 40 mg/dL Note: This HDL assay may give artificially low results in patients with liver disease. Blood Venous blood specimen / Unknown 08/14/2024 8:08 AM EDT 08/14/2024 11:21 AM EDT us Meeta Nicholas ANP LAB BLOOD ORDERABLES Final Resul t [facility] [address] [place] [address] [phone] * Colonoscopy (09/14/2019) Colonoscopy Normal Normal us Historical Provider MD HEALTH MAINTENANCE Final Result from Last 3 Months or Most Recently Relevant to Health Maintenance Insurance [facility] [employer] (O D-SNP) DENTAL [facility] Care Teams Shade Maker Relationship Specialty Start Date End Date Meeta Nicholas ANP [address] [place] [phone] PCP - General Family Medicine 06/27/22
== END 2025-01-20 14:01 | disposition home or self-care (01) ==
LOC: HO.HGI 13:06
PROVIDERS: PCP Internal Medicine; Visit Provider Internal Medicine
DX: Z86.0100 Personal history of colon polyps, unspecified (principal); I25.10 Atherosclerotic heart disease of native coronary artery without angina pectoris; I21.4 Non-ST elevation (NSTEMI) myocardial infarction
CPT/HCPCS: 99214

== ENCOUNTER → 2025-01-20 13:06 | Outpatient (BNVA) | payer OTHER, SELFPAY ==
[2022-03-15 07:26] VITALS: BP 104/58; BP 112/62; BMI 32.8
== END ==
PROVIDERS: PCP Internal Medicine; Visit Provider Internal Medicine
DX: I25.10 Atherosclerotic heart disease of native coronary artery without angina pectoris (principal); I25.2 Old myocardial infarction; Z86.0100 Personal history of colon polyps, unspecified
CPT/HCPCS: 99212

== ENCOUNTER 2025-03-26 12:20 | Outpatient (REF) | payer OTHER, SELFPAY ==
[2022-03-15 07:26] VITALS: BP 104/58; BP 112/62; BMI 32.8
--- NOTE | ~2025-03-26 | MM_ITS ---
STUDY: DUAL ENERGY X-RAY ABSORPTIOMETRY / DXA REASON FOR EXAM: Male, 64 years old Pt reports h/o osteoporosis TECHNIQUE: Bone Mineral Density (BMD) measurements of the lumbar spine and left hip were obtained using [employer] COMPARISON: None FINDINGS: L1-L3 BMD: 1.070 g/cm2 L1-L3 T score: -1.2. This corresponds to osteopenia. This represents a Number % increase/decrease in bone density compared with prior exam from Date. Left femoral neck BMD: 0.871 g/cm2 Left femoral neck T score: -1.5. This corresponds to osteopenia. Left total hip BMD: 0.890 g/cm2 Left total hip T score: -1.5. This corresponds to osteopenia. FRAX score: 10 year risk of major osteoporotic fracture 3.5%, 10 year risk of hip fracture 0.6% MM/XR DEXA axial skeleton IMPRESSION: Osteopenia Reference Information: The T-score is the number of standard deviations above or below the standard which is normal for young adults at their peak bone mineral density. The World Health Organization (WHO) interprets the T-scores as follows: At or above -1 SD Normal bone density Between -1 and -2.5 SD Osteopenia At or below -2.5 SD Osteoporosis Electronically signed by: Bonnie Rangel MD 03/30/2025 07:40 AM [facility]
--- OUTSIDE RECORDS SUMMARY | 2025-03-26 18:20 | XMS_ITS | Data Portability ---
Demographics Address [address] [place] [address] Home Phone Preferred Language en Marital Status Never Church Affiliation Unknown Race Unknown Ethnic Group Unknown Author Organization [facility], PAIN OFFICE Address [address] [facility] [place] [address] Care Team Providers Care Senior Producer Name Role Phone CAROLE ONEAL Referring Provider [phone] Assessment Encounter Date Assessment Date Assessment LastModified by Organization Details LastModified Time 10/11/2015 10/11/2015 Sebastian Valles is a 55 year old man with low back pain radiating into both lower extremities. On exam ,he has pain on flexion. MRI Lumbar spine shows Spondylotic and degenerative disc changes of the lumbar spine are present . We discussed treatment options. 1. Trial of physical therapy- at [facility] in [place], [place] 2.Trial of Lumbar epidural steroid injections under fluoroscopic guidance was recommended. The risks and benefits of the procedure were discussed in detail. He wishes to proceed. He is on Plavix. An appointment will be booked if he can safely stop plavix for 7 days . He needs a home delivery driver on the day of the procedure. Dr. Duong's office called and stated that he needs to be on plavix for now and hence he is unable to stop it for atleast one year due to his recent stent placements. He will follow up after a month of physical therapy . [email or web address] Not available 11/05/2015 08:45:25 Plan of Treatment Reminders Order Date Submit Date Provider Last Modified By Organization Details Last Modified Time Details Appointments None recorded. Lab None recorded. Referral physical therapist referral 2015 016 [email or web address] Not available 6 11:55:51 Procedures None recorded. Surgeries None recorded. Imaging None recorded. Medication Orders None recorded. Patient TargetsNo targets recorded. Patient Instructions Encounter Date Encounter Id Patient Instructions Last Modified By Organization Details Last Modified Time 10/11/2015 [id number] He was advised against bed rest lasting longer than four days and to continue activities as tolerated. [email or web address] Not available 11/05/2015 08:45:25 Reason for Referral Referring Physician: Alessandra lockett, Pain Management, Encounter Date: 10/11/2015 Problems Name Problem SNOMED Code Status Onset Date Resolution Date Notes Provider Name and Address Organization Details Recorded Time Spinal stenosis of lumbar region 46852402 Active Alessandra hutchinson MD [address] , [address], [place], [address], [place] [facility] 6 08:43:11 Displacement of lumbar intervertebral disc without myelopathy 01042231 Active Alessandra hutchinson MD [address] , [address], [place], [address], [place] [facility] 6 08:43:11 Lumbosacral radiculitis 50393745 Active Alessandra hutchinson MD [address] , [address], [place], [address], [place] [facility] 6 08:44:26 Lumbosacral spondylosis without myelopathy 57380166 Active Alessandra hutchinson MD [address] , [address], [place], [address], [place] [facility] 6 08:44:26 Muscle pain 85303029 Active Alessandra hutchinson MD [address] , [address], [place], [address], [place] [facility] 6 08:43:11 Problem Notes None recorded. Procedures Surgical History Date Name Laterality Status Provider Name and Address Organization Details Recorded Time Other completed Tarsha Domingo [place] - [facility] 10/11/2015 10:53:42 Imaging Results None recorded. Procedure Notes None recorded. Medical Equipment None Reported. Allergies No known drug allergies Medications Name Sig Start Date Stop Date Status Note LastModified by Organization Details LastModified Time atorvastatin 80 mg tablet active Not Available Not Available Not Available albuterol sulfate 2.5 mg/3 mL (0.083 %) solution for nebulization USE 1 VIAL VIA NEBULIZER 4 TIMES DAILY NEEDED active Not Available Not Available No t Available metoprolol succinate ER 50 mg tablet,exten ded release 24 hr TOME LISA TABLETA AL ASHLEY active Not Available Not Available No t Available lisinopril 20 mg tablet TAKE 1 TABLET BY MOUTH ONCE A DAY active Not Available Not Available No t Available sertraline 100 mg tablet TAKE 1 TABLET BY MOUTH ONCE A DAY active Not Available Not Available No t Available clopidogrel 75 mg tablet active Not Available Not Available Not Available aspirin 81 mg tablet,delay ed release TOME DOS TABLETAS POR VIA ORAL TODOS LOS ARELLANO active Not Available Not Available No t Available tramadol 50 mg tablet active Not Available Not Available No t Available Nitrostat 0.4 mg sublingual tablet COLOQUE LISA TABLETA DEBAJO DE LA LENGUA CUANDO SEA NECESARIO PARA EL DOLOR DE PECHO active Not Available Not Available No t Available hydrocortiso ne 1 % topical cream active Not Available Not Available Not Available lisinopril 10 mg tablet active Not Available Not Available Not Available omeprazole 20 mg capsule,tiffani yed release TOME LISA CAPSULA POR LA MANANA active Not Available Not Available No t Available montelukast 10 mg tablet TOME LISA TABLETA POR VIA ORAL A DIARIO EN LA NOCHE active Not Available Not Available No t Available lisinopril 40 mg tablet active Not Available Not Available Not Available clotrimazole 1 % topical cream active Not Available Not Available Not Available rosuvastatin 40 mg tablet TOME LISA TABLETA POR VIA ORAL TODOS LOS ARELLANO AL ACOSTARSE active Not Available Not Available No t Available Flovent HFA 110 mcg/actuatio n aerosol inhaler INHALE 2 PUFF BY INHALATION ROUTE 2 TIMES EVERY DAY RINSE MOUTH OUT AFTERWARDS. active Not Available Not Available Not Available Tylenol as needed active Not Available Not Av ailable Not Available ProAir HFA 90 mcg/actuatio n aerosol inhaler INHALE 2 PUFFS BY INHALATION ROUTE 4 TIMES EVERY DAY NEEDED active Not Available Not Available No t Available Vitamin D3 50 mcg (2,000 unit) capsule TAKE 1 CAPSULE BY ORAL ROUTE EVERY DAY active Not Available Not Available No t Available Brilinta 90 mg tablet active Not Available Not Available No t Available Vitals Date Recorded Heart rate Oxygen saturation Oxygen saturation in Arterial blood by Pulse oximetry Body mass index (BMI) Body weight Body height Systolic And Diastolic Provider Name and Address Organization Details Last Updated DateTime 6 81 /min 98 % 98 % 36.7 kg/m2 [address]6043.6 2059 g 160.02 cm 156/86 mm[Hg] Tarsha Domingo [place] - [facility] 6 10:48:33 Social History Question Answer Notes LastModified by Organizat ion Details LastModified Time Tobacco Smoking Status Former Smoker Quit x 30 years Not Available [employer] 02/26/2020 03:16:12 Which Illicit Or Recreational Drugs Have You Used? No [id number] Information not available 02/26/2020 Education [email or web address] Information no t available 10/11/2015 Live Alone Or With Others? With Others Girlfriend [place] Information not available 10/11/2015 Marital Status Single [place] Informatio n not available 10/11/2015 How Many Years Have You Smoked Tobacco? 5 [id number] Information not available 02/26/2020 Sex: Unknown Functional Status Question Answer Note LastModified by Organization D etails LastModified Time What is your level of alcohol consumption? None [id number] Information not available 02/26/2020 Are you currently employed? No [id number] Information not available 02/26/2020 Mental Status None recorded. Family History Relationship Description Onset Age of this Age Resolved Age Notes LastModified by Organization Details LastModified Time Mother Heart disease [email or web address] Not available 10/12 08:32:23 Father Heart disease [email or web address] Not available 10/12 08:32:23 Notes:Mutiple Family members with CAD Medical History Condition Response Coronary Artery Disease Y Kidney Stones Y GERD/Reflux Y High Cholesterol Y Fibromyalgia Y Hypertension Y Depression Y Asthma Y Past Encounters Encounter ID Performer Location Encounter Start Date Encounter Closed Date Diagnosis/Indication Diagnosis SNOMED-CT Code Diagnosis ICD10 Code Diagnosis IMO Codes Diagnosis Note [id number] MD [facility] [address] [place] [address] [place] [address] 10/11/2015 10:14:56 11/05/2015 08:46:05 Displacement of lumbar intervertebral disc without myelopathy 78735666 M51.26 Lumbosacra l radiculitis 62060886 M54.17 Lumbosacra l spondylosis without myelopathy 39887206 M47.817 Muscle pain 25698086 M79 .1 Spinal camilo nosis of lumbar region 33009412 M48.06 Health Concerns Section Related Observation LastModified by Organization Detai ls LastModified Time None Recorded Concern Status LastModified by Organization Details LastModified Time None Recorded Advance Directives Directive None Recorded Payers Insurance Date Sequence Insurance Name Policy Number Policy Lane Covered Member ID Lane Member ID Guarantor Name 11/05/2015 1 [facility] - DOS PRIOR TO 2022 - DUAL ELIGIBLE (MEDICARE REPLACEMENT/ADV ANTAGE - HMO) Sebastian Valles [id number] Sebastian Valles 10/11/2015 2 MEDICARE B-[place]: [employer] Sebastian Valles [id number] Sebastianmargie Rodriguesgo Notes Date Note Type Note Provider Name and Address Organization Details Recorded Time 016 text/ht ml Pain Management L-spineReported by PatientHPIFor quality, patient reportsthrobbing,burning,aching,cr amping, andsharp(the pain in his low back is a sharp stabbing pain which radiates into both hips and the hip pain is an aching and occasionally throbbing in nature.). For severity, patient reportsworseningandinterference with sleepbut reportscurrent pain level 10/10andworst pain 10/10. For duration, patient reportsconstant. For onset/timing, patient reportsgradual onsetandchronic. For context, patient reportscannot identify. For alleviating factors, patient reportsstretchingandposition change. For aggravating factors, patient reportsgetting out of bed(he complains of stiffness on walking up .). For associated symptoms, patient reportsno weakness,no numbness,no bladder compromise, andno bowel compromise. For radiation, patient reportsbilateral le. For work related, patient reportsno. For adl (activities of daily living), patient reportswalking,sweeping, andmopping. For prior imaging, patient reportsmri. For prior emg, patient reportsnone. For previous surgery, patient reportsnone. For previous injections, patient reportsnone. For previous pt, patient reportsnone. 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 For location, (sebastian valles is a 55 year old man with complaints of low back pain radiating into both hips . the pain started in 1992 and he has been having a recent exacerbation of his pain.). Alessandra Dixon MD [address] [place] [address] , [address], [place], [address], [facility] - Pain Management 11/08/2015 16:20:53
== END 2025-03-26 12:21 | disposition home or self-care (01) ==
LOC: HO.MAMMO 12:20
PROVIDERS: PCP Nurse Practitioner Primary Care; Visit Provider Nurse Practitioner Primary Care
DX: M81.0 Age-related osteoporosis without current pathological fracture (principal)
CPT/HCPCS: 77080

== ENCOUNTER → 2025-03-26 12:30 | Outpatient (BNV) | payer OTHER, SELFPAY ==
[2022-03-15 07:26] VITALS: BP 104/58; BP 112/62; BMI 32.8
== END ==
PROVIDERS: PCP Nurse Practitioner Primary Care; Visit Provider Radiology Body Imaging
DX: M85.80 Other specified disorders of bone density and structure, unspecified site (principal)
CPT/HCPCS: 77080

== ENCOUNTER 2025-04-15 22:38 | Emergency (ER) | payer OTHER, SELFPAY ==
[2022-03-15 07:26] VITALS: BP 104/58; BP 112/62; BMI 32.8
[2025-04-15 22:53] VITALS: BP 160/88; PULSE 77; O2SAT 97
[2025-04-15 22:55] VITALS: BMI 28.9
--- NOTE | 2025-04-15 23:00 | ED.EPISTAXIS ---
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 20 min. On brilinta.no trauma Related Data Home Medications ?Medication ?Instructions ?Recorded ?Confirmed aspirin 81 mg tablet,delayed 81 mg PO DAILY 10/17/21 10/17/21 release cetirizine 10 mg tablet 10 mg PO DAILY 10/17/21 10/17/21 cholecalciferol (vitamin D3) 50 50 mcg PO DAILY 10/17/21 10/17/21 mcg (2,000 unit) capsule (Vitamin D3) montelukast 10 mg tablet 10 mg PO BEDTIME 10/17/21 10/17/21 omeprazole 20 mg capsule,delayed 20 mg PO QAM 10/17/21 10/17/21 release rosuvastatin 40 mg tablet 40 mg PO BEDTIME 10/17/21 10/17/21 sertraline 100 mg tablet 100 mg PO DAILY 10/17/21 10/17/21 ticagrelor 90 mg tablet (Brilinta) 90 mg PO BID 10/17/21 10/17/21 isosorbide mononitrate 30 mg 30 mg PO QAM 01/20/25 tablet,extended release 24 hr latanoprost 0.005 % eye drops 1 drp ophthalmic (eye) QPM 01/20/25 lisinopril 5 mg tablet 5 mg PO QAM 01/20/25 metoprolol succinate 25 mg 25 mg PO DAILY 01/20/25 tablet,extended release 24 hr Previous Rx's ?Medication ?Instructions ?Recorded peg 3350-electrolytes 236 240 ml PO Q10M colonoscopy #4,000 01/20/25 gram-22.74 gram-6.74 gram-5.86 mL gram solution (Golytely) Allergies Allergy/AdvReac Type Severity Reaction Status Date / Time No Known Allergies Allergy Verified 04/15/25 22:56 [facility] Past Medical History Medical History Left inguinal hernia Osteoarthritis GERD (gastroesophageal reflux disease) GI bleed Hyperlipidemia Hypertension Coronary artery disease Asthma Arthralgia Surgical History History of cardiac cath History of colonoscopy Family History Family History Other CAD (coronary artery disease) Social History Social History Household Members: Spouse Housing: Apartment Do you presently have visiting nurse or other home services: Yes ([employer]) Alcohol intake: former Patient Tobacco Use Status: Former Tobacco user Years Smoked: 8 +/- Smoked in Last 30 Days: No Second Hand Smoke Exposure: No Use of substances other than those prescribed or required for medical reasons: No Advance Directives: No Advance Directives Information Provided: No service: No Current occupational status: disabled Physical Exam Exam: Exam: General wake alert oriented comfortable. ENT: dried blood about the right nares, no active bleeding coming out of the nose, however, small area of oozing. The superior aspect of the anterior right nares is normal. Turbinates show no oozing or pulsing blood down the back of the throat. No trauma. Vital Signs: Vital Signs: Last Vital Signs Temp 97.9 F 04/16/25 00:18 Pulse 60 04/16/25 00:18 Resp 18 04/16/25 00:18 BP 124/75 04/16/25 00:18 Pulse Ox 98 04/16/25 00:18 O2 Del Method Room Air 04/16/25 00:18 BMI result Body Mass Index 28.9 Medications Administered Discontinued Medications Generic Name Dose Route Start Last Admin Trade Name Freq PRN Reason Stop Dose Admin Oxymetazoline HCl 2 spray 04/15/25 22:56 04/15/25 23:16 Oxymetazoline Hcl 0.05 % Nasal 15 Ml [place] NOSTRIL-B 04/15/25 22:57 2 spray ONCE ONE Administration Silver Nitrate 1 appl 04/15/25 23:00 04/15/25 23:17 Silver Nitrate Applicator Stick..Ea. TOPICAL 04/15/25 23:01 1 appl ONCE ONE Administration Tranexamic Acid 500 mg 04/15/25 22:56 04/15/25 23:17 Tranexamic Acid 1,000 Mg/10 Ml Vial INTRANASAL 04/15/25 22:57 500 mg ONCE ONE Administration Medical Decision Making Medical Decision Making MDM Narrative: Medical Decision Making: [age] male with mild oozing from the right nares without trauma just prior to arrival on Brilinta baby aspirin. No previous significant epistaxis. No vomiting or hematemesis no recent ENT procedures or infections Preliminary Favored Differential Diagnosis: Anterior far more likely than posterior epistaxis. among additional considered etiologies Testing Interpreted Independently: ?See below for details Radiology or Lab testing Results Reviewed: ?See below for details Consults: ?See below for details Independent Historians/External Chart Reviews: ?See below for details Social Determinants of Health Impacting MDM/Planning: ?See below for details Procedures Epistaxis Control Nostril: Yes right Nose prepped with: Yes oxymetazoline Direct inspection: Yes anterior source identified Direct inspection method: Yes headlamp and Yes otoscope Clots removed by: Yes manually Epistaxis treatment: Yes TXA soaked gauze and Yes silver nitrate cautery Results of treatment: Yes bleeding controlled and Yes treatment well tolerated Complications: Yes none Discharge Plan Discharge Clinical Impression: Epistaxis requiring cauterization Patient Disposition: Home, Self-Care Instructions: Nosebleed (ED) Additional Instructions: DISCHARGE DIAGNOSES: Epistaxis no bleed resolved HISTORY OF PRESENTATION: ?Nosebleed EMERGENCY DEPARTMENT COURSE,TESTS, TREATMENTS: While in the ED today you had application of cotton pledget with TXA as well as 2 sprays of Afrin to stop the bleeding you also had a silver nitrate chemical cauterization of the right nose. Bleeding has stopped DISCHARGE MEDICATIONS: ?[We have made no changes to your regular medication regimen] I recommend you to buy [id number] bacitracin or any other antibiotic ointment and use a cotton swab to lubricate the front part of your nose every day in the morning to make sure of the moisture stays in an it does not dry out which can cause nosebleeding FOLLOW-UP: ?Call your primary or general physician soon as possible to discuss your symptoms, your ED visit and to discuss follow up plans You can call your PCP for referral to ENT if you feel needed but if there was no continued bleeding you do not need to see ENT. INSTRUCTIONS ?& RETURN PRECAUTIONS: If any symptoms change first call your primary physician, if it is after-hours your primary doctors office should have a provider application project leader you can speak with. If the symptoms are severe or very concerning to you then call 911 or return to the ED. With any repeat bleeding we strongly recommend applying consistent pressure with the nasal clamp for at least 15 minutes do not take often check in the interim just hold the pressure continuously. If after 2 full rounds of 15 minutes you still have significant rapid bleeding return to the emergency department Shilo Gonzalez MD Emergency Physician [facility] Prescriptions: No Action sertraline 100 mg tablet 100 mg PO DAILY rosuvastatin 40 mg tablet 40 mg PO BEDTIME omeprazole 20 mg capsule,delayed release(DR/EC) 20 mg PO QAM cholecalciferol (vitamin D3) [Vitamin D3] 50 mcg (2,000 unit) capsule 50 mcg PO DAILY aspirin 81 mg tablet,delayed release (DR/EC) 81 mg PO DAILY Brilinta 90 mg tablet 90 mg PO BID montelukast 10 mg tablet 10 mg PO BEDTIME cetirizine 10 mg tablet 10 mg PO DAILY latanoprost 0.005 % drops 1 drp ophthalmic (eye) QPM metoprolol succinate 25 mg tablet extended release 24 hr 25 mg PO DAILY isosorbide mononitrate 30 mg tablet extended release 24 hr 30 mg PO QAM lisinopril 5 mg tablet 5 mg PO QAM peg 3350-electrolytes [Golytely] 236-22.74-6.74 -5.86 gram recon soln 240 ml PO Q10M Qty: 4000 0RF Rx Instructions: as per split prep instructions, until fecal effluent is clear Interventions: ED Discharge Assessment Last Done: 04/16/25 00:18 Discharge Date/Time: 04/16/25 00:19 Print Language: Tamazight
--- NOTE | 2025-04-15 23:02 | PC.NURSE ---
Pt a&ox4, no signs of distress Pt denies injury/trauma to nose and reports nose bleed has lasted 20 mins so far Plan of care ongoing.
[2025-04-15] MEDS: Oxymetazoline HCl 0.05 % Nasal 15 ML SPRAY 2 SPRAY NOSTRIL-B (23:16)
[2025-04-15] MEDS: Tranexamic Acid 1,000 MG/10 ML VIAL 500 MG INTRANASAL (23:17)
[2025-04-15] MEDS: Silver Nitrate Applicator STICK..EA. 1 APPL TOPICAL (23:17)
[2025-04-16 00:18] VITALS: BP 124/75; PULSE 60; RESP 18; TEMP 36.6; O2SAT 98
--- OUTSIDE RECORDS SUMMARY | 2025-04-16 00:19 | XMS_ITS | Data Portability ---
Demographics Address [address] [place] [address] Home Phone Preferred Language en Marital Status Never Hindu Affiliation Unknown Race Unknown Ethnic Group Unknown Author Organization [facility] Pain Managem ent, PAIN OFFICE Address [address] [facility] [place] [address] Care Team Providers Care Wind Site Manager Name Role Phone CAROLE ONEAL Referring Provider [phone] Assessment Encounter Date Assessment Date Assessment LastModified [...] of physical therapy- at [facility] in [place], [place] 2.Trial of Lumbar epidural steroid injections under fluoroscopic guidance was recommended. The risks and benefits of the procedure were discussed in detail. He wishes to proceed. He is on Plavix. An appointment will be booked if he can safely stop plavix for 7 days . He needs a public transit trolley driver on the day of the procedure. [...] By Organization Details Last Modified Time 10/11/2015 [id number] He was advised against bed rest lasting longer than four days and to continue activities as tolerated. [email or web address] Not available 11/05/2015 08:45:25 Reason for Referral Referring Physician: Alessandra lockett, Pain Management, Encounter Date: 10/11/2015 Problems Name Problem SNOMED Code Status Onset Date Resolution Date Notes Provider Name and Address Organization Details Recorded Time Spinal stenosis of lumbar region 39390164 Active Alessandra hutchinson MD [address] , [address], [place], [address], [place] [facility] 6 08:43:11 Displacement of lumbar intervertebral disc without myelopathy 96953899 Active Alessandra hutchinson MD [address] , [address], [place], [address], [place] [facility] 6 08:43:11 Lumbosacral radiculitis 84929670 Active Alessandra hutchinson MD [address] , [address], [place], [address], [place] [facility] 6 08:44:26 Lumbosacral spondylosis without myelopathy 92179031 Active Alessandra hutchinson MD [address] , [address], [place], [place], [address], [place] [facility] 6 08:44:26 Muscle pain 08718660 Active Alessandra hutchinson MD [address] , [address], [place], [address], [place] [facility] [...] Vitals Date Recorded Heart rate Oxygen saturation Body mass index (BMI) Body weight Body height Systolic And Diastolic Provider Name and Address Organization Details Last Updated DateTime 6 81 /min 98 % 36.7 kg/m2 82007.6 2059 g 160.02 cm 156/86 mm[Hg] Tarsha Domingo [place] [facility] 6 10:48:33 Social History Question Answer Notes LastModified by Organizat ion Details LastModified Time Tobacco Smoking Status Former Smoker Quit x 30 years Not Available [employer] 02/26/2020 03:16:12 Which Illicit Or Recreational Drugs Have You Used? No [id number] Information not available 02/26/2020 Education 12 [email or web address] Information no t available 10/11/2015 Live Alone Or With Others? With Others Girlfriend [email or web address] Information not available 10/11/2015 Marital Status Single [place] [employer] n not available 10/11/2015 How Many Years Have You Smoked Tobacco? 5 [id number] Information not available 02/26/2020 Sex: Unknown Functional Status Question Answer Note LastModified by Organization D etails LastModified Time What is your level of alcohol consumption? None [id number] Information not available 02/26/2020 Are you currently employed? No [id number] Information not available 02/26/2020 Mental Status None recorded. Family History Relationship Description Onset Age of this Age Resolved Age Notes LastModified by Organization Details LastModified Time Mother Heart disease [email or web address] Not available 10/12 08:32:23 Father Heart disease [email or web address] Not available 10/12 08:32:23 Notes:Mutiple Family members with CAD Medical History Condition Response Coronary Artery Disease Y Kidney Stones Y Depression Y High Cholesterol Y Fibromyalgia Y Asthma Y GERD/Reflux Y Hypertension Y Past Encounters Encounter ID Performer Location Encounter Start Date Encounter Closed Date Diagnosis/Indication Diagnosis SNOMED-CT Code Diagnosis ICD10 Code Diagnosis IMO Codes Diagnosis Note [id number] Alessandra Dixon MD PAIN OFFICE [address] [facility] [address] [place] [address] 10/11/2015 10:14:56 11/05/2015 08:46:05 Displacement of lumbar intervertebral disc without myelopathy 80164650 M51.26 Lumbosacra l radiculitis 64887615 M54.17 Lumbosacra l spondylosis without myelopathy 09241841 M47.817 Muscle pain 41495721 M79 .1 Spinal camilo nosis of lumbar region 17580098 M48.06 Health Concerns Section Related Observation LastModified by Organization Detai ls LastModified Time None Recorded Concern Status LastModified by Organization Details LastModified Time None Recorded Advance Directives Directive None Recorded Payers Insurance Date Sequence Insurance Name Policy Number Policy Lane Covered Member ID Lane Member ID Guarantor Name 11/05/2015 1 [facility] - DOS PRIOR TO 2022 - DUAL ELIGIBLE (MEDICARE REPLACEMENT/ADV ANTAGE - HMO) Sebastian Valles [id number] Sebastian Valles 10/11/2015 2 MEDICARE [place]: [employer] Sebastian Valles [id number] Sebastian Valles Notes Date Note Type Note Provider Name [...] For previous pt, patient reportsnone. For previous medicare compliance auditor, patient reportsnone. For location, (sebastian valles is a 55 year old man with complaints of low back pain radiating into both hips . the pain started in 1992 and he has been having a recent exacerbation of his pain.). Alessandra Dixon MD [address] [facility] , [address], [place], [address], [place] - Pain Management 11/08/2015 16:20:53
== END 2025-04-16 00:19 | disposition home or self-care (01) ==
LOC: HO.ED 04-16 00:16
PROVIDERS: Emergency Provider Emergency Medicine; PCP Nurse Practitioner Primary Care
DX: R04.0 Epistaxis (principal)
CPT/HCPCS: 30901; 99284; J2151

== ENCOUNTER 2025-04-21 12:02 | Inpatient (IN) | payer OTHER, SELFPAY ==
[2022-03-15 07:26] VITALS: BP 104/58; BP 112/62; BMI 32.8
--- NOTE | 2025-04-21 | ECG_ITS ---
Test Reason : DIZZINESS Blood Pressure : */* mmHG Vent. Rate : 54 BPM Atrial Rate : 54 BPM P-R Int : 174 ms QRS Dur : 74 ms QT Int : 430 ms P-R-T Axes : 43 55 63 degrees QTcB Int : 407 ms Sinus bradycardia Otherwise normal ECG When compared with ECG of 05-Mar-2024 00:52, No significant change was found Referred By: Generic ED Physician Electronically Signed By: THERESA HELM MD
--- NOTE | ~2025-04-21 | XR_ITS ---
EXAMINATION: XR CHEST CLINICAL INFORMATION: Chest pain COMPARISON: Radiographs on March 04, 2024 TECHNIQUE: Frontal view of the chest was obtained. FINDINGS: Lungs: Low volumes. Minimal patchy opacity superior to the right hilar region. Focal hazy opacity in the bilateral lower lungs likely represent atelectasis. Pleura: No pneumothorax or pleural effusion. Mediastinum: Cardiomediastinal silhouette is within normal limits. Bones: No acute findings. XR/XR chest 1V IMPRESSION: Minimal patchy disease in the right suprahilar region could represent early developing airspace disease. Electronically signed by: Bonnie Rangel MD 04/21/2025 01:00 PM [facility] [place]
[2025-04-21 12:18] VITALS: BP 134/75; PULSE 77; O2SAT 98
[2025-04-21 12:34] VITALS: BP 99/62; PULSE 60; RESP 18; TEMP 36.8; O2SAT 95; BMI 30.1
--- NOTE | 2025-04-21 12:37 | ED_ITS ---
HPI - Chest Pain General Chief Complaint: Chest Pain Stated Complaint: chest pressure 30 mins ago, given aspirin Time Seen by Provider: 04/21/25 12:32 History of Present Illness ED Provider: Shilo Gonzalez MD HPI narrative: 64-year-old male with a history of CAD and stent recent nasal nasal bleeding, presents with chest pain and brought in by EMS who provided him fentanyl, aspirin and nitro with some improvement. Relatively pain-free when I see him. I saw him recently for nosebleed that has since resolved. He has been taking all of his meds recently denies any injuries to the chest wall no cough or fever recently. 2023 cardiac catheterization from [facility] results below: We did not notice any obvious culprit. Distal OM2 stent has mild ISR. Hemostasis with regular TR band. Angiographic Findings Cardiac Arteries and Lesion Findings LMCA: Normal. LAD: Patent LAD stent-mild ISR. Mid LAD myocardial bridge. D1 has 70% stenosis mid segment-small sized vessel. LCx: mild plaque/ISR in the distal OM2 stent.There is a previous stent on 2nd Ob Mirtha. RCA: There is a previous stent on Prox RCA Distal subsection. There is a previous stent on Mid RCA Distal subsection. Related Data Home Medications ?Medication ?Instructions ?Recorded ?Confirmed aspirin 81 mg tablet,delayed 81 mg PO DAILY 10/17/21 1 06/22/24 release cetirizine 10 mg tablet 10 mg PO DAILY 10/17/2104/12 montelukast 10 mg tablet 10 mg PO DAILY 10/17/2104/12 omeprazole 20 mg capsule,delayed 20 mg PO DAILY@0630 0 10/17/21 04/21/25 release rosuvastatin 40 mg tablet 40 mg PO BEDTIME 10/17/21 ticagrelor 90 mg tablet (Brilinta) 90 mg PO BID 04/21/25 isosorbide mononitrate 30 mg 30 mg PO DAILY 01/20/25 1 06/22/24 tablet,extended release 24 hr latanoprost 0.005 % eye drops 1 drp ophthalmic (eye) B EDTIME 01/20/25 04/21/25 lisinopril 5 mg tablet 5 mg PO DAILY 01/20/2504/21 metoprolol succinate 25 mg 25 mg PO DAILY 01/20/2503/06 tablet,extended release 24 hr acetaminophen 325 mg tablet 650 mg PO Q6H PRN Pain (Sc sharri 04/21/25 04/21/25 Score 1-3) cholecalciferol (vitamin D3) 25 25 mcg PO DAILY 04/21/25 mcg (1,000 unit) capsule (Vitamin D3) Allergies Allergy/AdvReac Type Severity Reaction Status Date / Time No Known Allergies Allergy Verified 04/21/25 12:36 [facility] Past Medical History Medical History (Updated 04/22/25 @ 00:00 by Heidy Cole RN) Hyperlipidemia Hypertension Left inguinal hernia Osteoarthritis GERD (gastroesophageal reflux disease) GI bleed Coronary artery disease Asthma Arthralgia Surgical History History of cardiac cath History of colonoscopy Family History Family History Other CAD (coronary artery disease) Social History Social History Household Members: Significant Other Housing: Apartment Do you presently have visiting nurse or other home services: No Alcohol intake: former Patient Tobacco Use Status: Former Tobacco user Years Smoked: 8 +/- Second Hand Smoke Exposure: No Have you been hit, kicked, punched, or otherwise hurt by someone within the past year? If so, by whom?: No Do you feel safe in your current relationship?: Yes Is there a partner from a previous relationship who is making you feel unsafe now?: No Are you made to feel afraid or neglected: No Advance Directives: No Advance Directives Information Provided: Yes Recently lost weight without trying: No Nutrition Risks: No Nutritional Risk service: No Current occupational status: disabled Physical Exam 2 Exam: Exam: EXAM: Gen: Alert, awake, well appearing, well hydrated. Head: Atraumatic Eyes: Anicteric, Normal conjunctiva. ENT: Moist mucosa, no pallor. ? Neck: Supple. Skin: ?No observable rash or bruising on exposed or examined skin Respiratory: Breathing comfortably, No distress.Clear to auscultation bilaterally, symmetric chest expansion, No wheeze, rales, ronchi. Cardiovascular: Regular rate and rhythm. No murmurs or rub. Well perfused periphery, warm extremities. No edema. ? Abdominal: No focal tenderness. Soft, no objective distension. No palpable masses or obvious organomegaly. ?No guarding, no rebound tenderness or other peritoneal findings. : No flank tenderness. Neuro: Alert. Gross movement of all extremities intact. ? Psych: Calm. Cooperative. MSK: No grossly visible deformity. Vital signs: See flowsheet Vital Signs: Vital Signs: Last Vital Signs Temp 97.8 F 04/22/25 07:03 Pulse 55 04/22/25 07:03 Resp 16 04/22/25 07:03 BP 123/68 04/22/25 07:03 Pulse Ox 97 04/22/25 07:03 O2 Del Method Room Air 04/22/25 07:03 BMI result Body Mass Index 29.8 Medications Administered Generic Name Dose Route Start Last Admin Trade Name Freq PRN Reason Stop Dose Admin Aspirin 81 mg 04/22/25 09:00 04/22/25 08:55 Aspirin Enteric Coated 81 Mg Tablet. PO 81 mg DAILY SINDHU Administration Atorvastatin Calcium 80 mg 04/21/25 21:00 04/21/25 21:07 Atorvastatin Calcium 80 Mg Tablet PO 80 mg BEDTIME SINDHU Administration Heparin Sodium/Sodium Chloride 25,000 unit in 250 mls @ 0 mls/hr 04/21/25 16:30 04/22/25 03:35 Heparin Sodium,Porcine/1/2ns IVCONT 8 units/kg/hr .Q0M SINDHU 6.1 mls/hr Protocol Titration Per Protocol Latanoprost 1 drop 04/21/25 21:00 04/21/25 21:09 Latanoprost 0.005 % Ophth Sana 2.5 Ml Drops EYE-BOTH 1 drop BEDTIME SINDHU Administration Metoprolol Tartrate 25 mg 04/21/25 21:00 04/22/25 08:55 Metoprolol Tartrate 25 Mg Tablet PO 25 mg BID SINDHU Administration Protocol Montelukast Sodium 10 mg 04/22/25 09:00 04/22/25 08:55 Montelukast Sodium 10 Mg Tablet PO 10 mg DAILY SINDHU Administration Omeprazole 40 mg 04/21/25 16:45 04/22/25 06:08 Omeprazole 40 Mg Capsule. PO 40 mg DAILY@0630 SINDHU Administration Sodium Chloride 3 ml 04/22/25 00:00 04/22/25 08:55 0.9 % Sodium Chloride Flush 3 Ml Syringe IVFLUSH Not Given QSHIFT SINDHU Discontinued Medications Generic Name Dose Route Start Last Admin Trade Name Lily PRN Reason Stop Dose Admin Heparin Sodium (Porcine) 4,000 unit 04/21/25 15:55 04/21/25 17:19 Heparin Sodium,Porcine 5,000 Unit/Ml Vial IVPUSH 04/21/25 15:56 4,000 unit ONCE ONE Administration Medical Decision Making Medical Decision Making MDM Narrative: Medical Decision Makin-year-old male with a history of CAD with central chest pain this morning. Symmetric pulses. Soft blood pressure he tells me he has chronic borderline low blood pressure No abdominal pain or vomiting he is awake alert looks well heart rates in the 50s sinus Preliminary Favored Differential Diagnosis: Unstable angina, atypical pain, musculoskeletal pain, pleuritis, pericarditis among additional considered etiologies Testing Interpreted Independently: ?Sinus rhythm no acute ischemic changes consistent with previous ECGs in our system Radiology or Lab testing Results Reviewed: ?See below for details Consults: Case discussed with on-call Cardiology given the greater than 50% increase in troponin classic symptomatology in the history of CAD the patient will be admitted here for serial troponins heparinization for possible unstable angina. Independent Historians/External Chart Reviews: ?See below for details Social Determinants of Health Impacting MDM/Planning: ?See below for details Consult Healthcare Provider Management of the patient was discussed with: Hospitalist and Custom Motorcycle Painter Lab Data 04/22/25 06:31 04/22/25 06:31 Labs: Lab Results 04/21/25 04/21/25 Range/Units 13:07 15:00 WBC 8.8 (4.8-10.8) X10*3/uL RBC 4.76 (4.60-5.80) X10*6/uL Hgb 14.2 (14.0-18.0) g/dl Hct 43.0 (42.0-52.0) % MCV 90.3 (80.0-98.0) fL MCH 29.8 (27.0-33.0) pg MCHC 33.0 (31.0-36.0) g/dl RDW 12.9 (11.0-16.0) % Plt Count 211 (160-400) X10*3/uL MPV 9.7 (9.4-12.4) fL Immature Gran % (Auto) 0.2 (0.0-0.4) % Neut % (Auto) 72.2 (45-73) % Lymph % (Auto) 15.8 L (20-40) % [place] % (Auto) 8.3 (2-11) % Eos % (Auto) 2.8 (0-4) % Baso % (Auto) 0.7 (0-2) % Lymph # (Auto) 1.4 (1.2-4.9) X10*3/uL [place] # (Auto) 0.7 (0.1-1.2) X10*3/uL Eos # (Auto) 0.3 (0.0-0.4) X10*3/uL Baso # (Auto) 0.1 (0.0-0.2) X10*3/uL Abs Immat Gran (auto) 0.02 (0.00-0.03) X10*3/uL Absolute Neuts (auto) 6.4 (2.0-8.3) x10*3/uL Absolute Nucleated RBC 0.000 (0.0-0.012) X10*3/uL Nucleated RBC % (auto) 0.0 (0.0-0.2) /100WBC Sodium 135 (135-145) mmol/L Potassium 4.2 (3.3-5.1) mmol/L Chloride 106 (96-108) mmol/L Carbon Dioxide 26 (22-29) mmol/L Anion Gap 7 L (12-20) BUN 14 (9-16) mg/dL Creatinine 1.22 (0.5-1.4) mg/dL Estim Creat Clear Calc 54.7 Estimated GFR 59 Random Glucose 94 (60-115) mg/dL Calcium 9.2 (8.4-10.2) mg/dL Total Bilirubin 0.7 (0.0-1.0) mg/dL AST 22 (5-37) U/L ALT 14 (0-40) U/L Alkaline Phosphatase 90 (39-117) U/L Troponin I High Sens 9.5 D 29.0 D (<3.5-35.0) ng/L NT-Pro-B Natriuret Pep 32.0 (<300) pg/mL Total Protein 6.8 (6.5-8.0) g/dL Albumin 4.0 (3.5-5.0) g/dL Discharge Plan Discharge Clinical Impression: Acute non-ST elevation myocardial infarction (NSTEMI) Patient Disposition: Admitted As Inpatient Discharge Date/Time: 04/22/25 00:00
[2025-04-21 13:12] LABS: MANUAL DIFF FLAG NO
[2025-04-21 13:13] LABS: Hematocrit 43.0 % (42.0-52.0); Hemoglobin 14.2 g/dl (14.0-18.0); Imm Gran Abs Auto 0.02 X10*3/uL (0.00-0.03); Imm Gran Pct Auto 0.2 % (0.0-0.4); Lymphocytes Absolute Auto 1.4 X10*3/uL (1.2-4.9); Mean Corpuscular HGB Conc 33.0 g/dl (31.0-36.0); Mean Corpuscular Hemoglobin 29.8 pg (27.0-33.0); Mean Corpuscular Volume 90.3 fL (80.0-98.0); NRBC Abs Auto 0.000 X10*3/uL (0.0-0.012); NRBC Pct Auto 0.0 /100WBC (0.0-0.2); Platelet Count 211 X10*3/uL (160-400); Red Blood Count 4.76 X10*6/uL (4.60-5.80); White Blood Count 8.8 X10*3/uL (4.8-10.8)
[2025-04-21 13:33] LABS: Alanine Aminotransferase 14 U/L (0-40); Albumin Level 4.0 g/dL (3.5-5.0); Alkaline Phosphatase 90 U/L (39-117); Anion Gap 7 (12-20); Aspartate Amino Transferase 22 U/L (5-37); Blood Urea Nitrogen 14 mg/dL (9-16); Calcium 9.2 mg/dL (8.4-10.2); Carbon Dioxide 26 mmol/L (22-29); Chloride 106 mmol/L (96-108); Creatinine Clr Calc Pharmacy 54.7; Estimated Glomerular Filt Rate 59; Potassium 4.2 mmol/L (3.3-5.1); Sodium 135 mmol/L (135-145); Total Protein 6.8 g/dL (6.5-8.0)
[2025-04-21 13:36] LABS: NT Pro B Type Natriuretic Pept 32.0 pg/mL (<300); Troponin-I High Sensitivity 9.5 ng/L (<3.5-35.0)
[2025-04-21 15:13] VITALS: BP 105/60; PULSE 58; RESP 16; TEMP 36.7; O2SAT 96
[2025-04-21 15:34] LABS: Troponin-I High Sensitivity 29.0 ng/L (<3.5-35.0)
[2025-04-21 16:24] VITALS: BMI 29.8
--- NOTE | 2025-04-21 16:35 | PM.IMHP ---
History of Present Illness Date of Service: 04/21/25 Chief Complaint: Chest pain Patient is a 61-year-old male, with a background history of HTN, HLD, multivessel CAD s/p FAWN RCA x2, LCX x2, LAD x1, most recent PCI 09/2021 on aspirin and Brilinta (now discontinued), lower GI bleed 09/2019 2/2 cecal ulcer, GERD, recent episode of epistaxis, presents to the hospital with complaints of left lateral chest and back pain, radiating to the anterior precordium. PRESENTATION Patient reports he was taken of the trash, and on returning to his house, he experienced back pain that continued to worsen, eventually radiating from the left lateral aspect of his chest to the anterior precordium. Patient describes associated dizziness, shortness of breath, palpitations, diaphoresis. He denies loss of consciousness, nausea or vomiting. He denies recent illness such as diarrhea, pneumonia or recent viral infection. The patient had recently held his medications on Saturday in anticipation for an upcoming colonoscopy Saturday. Patient reports he has no retrosternal chest pain or discomfort with climbing stairs, movement. Denies recent chest pain, dizziness, diaphoresis or dyspnea with activity or at rest. The patient's PARK INTERPRETIVE RANGER (his grandson), notices and contacted EMS. EMS arrival, administered nitroglycerin, aspirin and fentanyl with immediate relief and the patient's retrosternal chest discomfort. ED COURSE In the emergency room, the patient's troponin was drawn returning at 9, and repeat returning at 23. Unremarkable ECG Cardiology was made aware - with recommendations to initiate a heparin drip for NSTEMI. EVALUATION On evaluation, the patient appears comfortable in bed. No reported chest pain, palpitations, dizziness diaphoresis at this time. Heart rate is stable at 60 beats per minute Blood pressure preserved 105/60 Review of Systems Review of Systems: Yes all other systems are reviewed and are negative [facility] Medical History (Updated 04/21/25 @ 16:47 by Maria Luisa Guzman MD) Hyperlipidemia Hypertension Left inguinal hernia Osteoarthritis GERD (gastroesophageal reflux disease) GI bleed Coronary artery disease Asthma Arthralgia Family History Other CAD (coronary artery disease) Surgical History History of cardiac cath History of colonoscopy Social History Household Members: Spouse Housing: Apartment Do you presently have visiting nurse or other home services: Yes ([employer]) Alcohol intake: former Patient Tobacco Use Status: Former Tobacco user Years Smoked: 8 +/- Second Hand Smoke Exposure: No service: No Current occupational status: disabled Meds Allergies Allergy/AdvReac Type Severity Reaction Status Date / Time No Known Allergies Allergy Verified 04/21/25 12:36 Active Medications: Current Medications Acetaminophen (Acetaminophen 325 Mg Tablet) 650 mg PO Q6H PRN PRN Reason: Pain, Mild 1-3,fever,headache Calcium Carbonate (Calcium Carbonate 750 Mg Tab.Chew) 750 mg PO Q4H PRN PRN Reason: Heartburn Heparin Sodium (Porcine) (Heparin Sodium,Porcine 5,000 Unit/Ml Vial) 3,100 unit 40 unit/kg (3100 unit) IVPUSH PROTOCOL BOLUS PRN; Protocol PRN Reason: 40 unit/kg - Heparin Protocol Heparin Sodium (Porcine) (Heparin Sodium,Porcine 5,000 Unit/Ml Vial) 6,200 unit 80 unit/kg (6200 unit) IVPUSH PROTOCOL BOLUS PRN; Protocol PRN Reason: 80 unit/kg - Heparin Protocol Heparin Sodium (Porcine) (Heparin Sodium,Porcine 5,000 Unit/Ml Vial) 3,100 unit 40 unit/kg (3100 unit) IVPUSH PROTOCOL BOLUS PRN; Protocol PRN Reason: 40 unit/kg - Heparin Protocol Heparin Sodium (Porcine) (Heparin Sodium,Porcine 5,000 Unit/Ml Vial) 6,100 unit 80 unit/kg (6100 unit) IVPUSH PROTOCOL BOLUS PRN; Protocol PRN Reason: 80 unit/kg - Heparin Protocol Heparin Sodium/Sodium Chloride (Heparin Sodium,Porcine/1/2ns) 25,000 unit in 250 mls @ 0 mls/hr IVCONT .Q0M SINDHU; Protocol Heparin Sodium/Sodium Chloride (Heparin Sodium,Porcine/1/2ns) 25,000 unit in 250 mls @ 0 mls/hr IVCONT .Q0M SINDHU; Protocol Magnesium Hydroxide (Milk Of Magnesia 30 Ml Oral.Susp) 30 ml PO DAILY PRN PRN Reason: Constipation Melatonin (Melatonin 3 Mg Tablet) 6 mg PO BEDTIME PRN PRN Reason: Insomnia Nitroglycerin (Nitroglycerin 0.4 Mg Tab.Subl) 0.4 mg SUBLINGUAL Q5MX3 PRN PRN Reason: Chest Pain Ondansetron HCl (Ondansetron Hcl 4 Mg/2 Ml Vial) 4 mg IVPUSH Q8H PRN PRN Reason: Nausea and Vomiting Sodium Chloride (0.9 % Sodium Chloride Flush 3 Ml Syringe) 3 [facility]ations ?Medication ?Instructions ?Recorded ?Confirmed ?Last Taken ?Type aspirin 81 mg tablet,delayed 81 mg PO DAILY 10/17/21 10/17/21 Unknown History release cetirizine 10 mg tablet 10 mg PO DAILY 10/17/21 10/17/21 Unknown History cholecalciferol (vitamin D3) 50 50 mcg PO DAILY 10/17/21 10/17/21 Unknown History mcg (2,000 unit) capsule (Vitamin D3) montelukast 10 mg tablet 10 mg PO BEDTIME 10/17/21 10/17/21 Unknown History omeprazole 20 mg capsule,delayed 20 mg PO QAM 10/17/21 10/17/21 Unknown History release rosuvastatin 40 mg tablet 40 mg PO BEDTIME 10/17/21 10/17/21 Unknown History sertraline 100 mg tablet 100 mg PO DAILY 10/17/21 10/17/21 Unknown History ticagrelor 90 mg tablet (Brilinta) 90 mg PO BID 10/17/21 10/17/21 Unknown History isosorbide mononitrate 30 mg 30 mg PO QAM 01/20/25 Unknown History tablet,extended release 24 hr latanoprost 0.005 % eye drops 1 drp ophthalmic (eye) QPM 01/20/25 Unknown History lisinopril 5 mg tablet 5 mg PO QAM 01/20/25 Unknown History metoprolol succinate 25 mg 25 mg PO DAILY 01/20/25 Unknown History tablet,extended release 24 hr Physical Exam Vital Signs and Narrative: Vital Signs: Last Vital Signs Temp 98.1 F 04/21/25 15:13 Pulse 58 04/21/25 15:13 Resp 16 04/21/25 15:13 BP 105/60 04/21/25 15:13 Pulse Ox 96 04/21/25 15:13 O2 Del Method Room Air 04/21/25 15:13 BMI result Body Mass Index 29.8 General: A&O x3, oriented to time place person and situation, comfortable, no pain Cardiac: S1, S2 auscultated with no S3/4, no MRG. Well perfused. Respiratory: Normal breath sounds auscultated throughout all lung zones, without wheezing, rales. Normal rate. GI/ : No abdominal pain on palpation, no masses or distentions. MSK: Normal ambulation without pain at bony prominences or musculature Neurological: Normal neurological examination on overview, without obvious CN II-XII abnormalities. Results Labs 04/21/25 13:07 04/21/25 13:07 Labs: Laboratory Results - last 24 hr 04/21/25 04/21/25 13:07 15:00 MCV 90.3 MCH 29.8 MCHC 33.0 RDW 12.9 Plt Count 211 MPV 9.7 Immature Gran % (Auto) 0.2 Neut % (Auto) 72.2 Lymph % (Auto) 15.8 L [place] % (Auto) 8.3 Eos % (Auto) 2.8 Baso % (Auto) 0.7 Lymph # (Auto) 1.4 [place] # (Auto) 0.7 Eos # (Auto) 0.3 Baso # (Auto) 0.1 Abs Immat Gran (auto) 0.02 Absolute Neuts (auto) 6.4 Absolute Nucleated RBC 0.000 Nucleated RBC % (auto) 0.0 Anion Gap 7 L Estim Creat Clear Calc 54.7 Estimated GFR 59 Random Glucose 94 Calcium 9.2 Total Bilirubin 0.7 AST 22 ALT 14 Alkaline Phosphatase 90 Troponin I High Sens 9.5 D 29.0 D NT-Pro-B Natriuret Pep 32.0 Total Protein 6.8 Albumin 4.0 Imaging Radiologist's Impressions: Impressions Chest X-Ray 04/21/25 12:41 IMPRESSION: Minimal patchy disease in the right suprahilar region could represent early developing airspace disease. Electronically signed by: Bonnie Rangel MD 04/21/2025 01:00 PM [facility] Assessment and Plan (1) Acute non-ST elevation myocardial infarction (NSTEMI): Status: Acute (2) CAD (coronary artery disease): Qualifiers: Coronary Disease-Associated Artery/Lesion type: unspecified vessel or lesion type [place] vs. transplanted heart: [place] heart Associated angina: with unstable angina Qualified Code(s): I25.110 - Atherosclerotic heart disease of [place] coronary artery with unstable angina pectoris Status: Acute (3) History of cardiac cath: Status: Acute (4) Ischemic cardiomyopathy: Status: Acute (5) Benign essential HTN: Status: Acute (6) GERD (gastroesophageal reflux disease): Qualifiers: Esophagitis presence: esophagitis presence not specified Qualified Code(s): K21.9 - Gastro-esophageal reflux disease without esophagitis Status: Acute (7) GI bleed: Qualifiers: GI bleed type/associated pathology: unspecified gastrointestinal hemorrhage type Qualified Code(s): K92.2 - Gastrointestinal hemorrhage, unspecified Status: Acute (8) Hyperlipidemia: Qualifiers: Hyperlipidemia type: mixed hyperlipidemia Qualified Code(s): E78.2 - Mixed hyperlipidemia Status: Acute Plan Patient is a 61-year-old male, with a background history of HTN, HLD, multivessel CAD s/p FAWN RCA x2, LCX x2, LAD x1, most recent PCI 09/2021 on aspirin and Brilinta (now discontinued), lower GI bleed 09/2019 2/2 cecal ulcer, GERD, recent episode of epistaxis, presents to the hospital with complaints of left lateral chest and back pain, radiating to the anterior precordium, admitted with unstable angina/NSTEMI. Unstable angina/NSTEMI Multivessel CAD s/p multiple FAWN x5 Ischemic cardiomyopathy pEF Patient presents with atypical chest pain. Troponin elevation from 9 --> 29; given delta increase of 50% from original value, concerns for ACS raised Cardiology made aware, recommending heparinization and admission. PLAN - initiate heparin drip - continue aspirin 81 mg OD p.o. - continue high-dose statin - continue beta-marianne - cardiology consultation - repeat echocardiography - consider stress test as per Cardiology recommendations - repeat troponin Lower GI bleeding cecal ulcer GERD Patient had history of GI bleeding in 06/14 a bleeding cecal ulcer. Patient also has a history of GERD. He was planned for outpatient colonoscopy on 04/23/2025. PLAN - omeprazole 40 mg OD p.o. empirically - monitor for signs and symptoms of GI bleeding - trend CBC Recent epistaxis Recently presented to hospital with epistaxis Monitor for recurrence of bleeding Despite this, continue heparin and aspirin HTN Monitor blood pressure closely; consider holding blood pressure medications Would prefer the continuation of beta-blockers HLD Continue high-intensity statin [employer] - VTE: Heparin drip - CODE STATUS: Full code - DIET: Cardiac diet Quality Stroke Does the patient have a stroke diagnosis?: No VTE Prior VTE?: No VTE Risk Level:: Medical - moderate - high VTE Device Contraindication: Treatment Not Indicated VTE Drug Contraindication: Treatment Not Indicated
[2025-04-21 16:46] LABS: Hematocrit 46.2 % (42.0-52.0); Hemoglobin 15.1 g/dl (14.0-18.0); Mean Corpuscular HGB Conc 32.7 g/dl (31.0-36.0); Mean Corpuscular Hemoglobin 29.4 pg (27.0-33.0); Mean Corpuscular Volume 89.9 fL (80.0-98.0); NRBC Abs Auto 0.000 X10*3/uL (0.0-0.012); NRBC Pct Auto 0.0 /100WBC (0.0-0.2); Platelet Count 233 X10*3/uL (160-400); Red Blood Count 5.14 X10*6/uL (4.60-5.80); White Blood Count 10.2 X10*3/uL (4.8-10.8)
[2025-04-21 17:00] LABS: INTERNATIONAL NORM RATIO 1.0 (0.9-1.1); Prothrombin Time 12.5 SEC (11.2-13.5)
[2025-04-21 17:03] LABS: PTT Heparin Drip 29.6 SEC (53-77.9)
[2025-04-21] MEDS: Heparin Sodium,Porcine/1/2NS 25,000 UNIT/250 ML IV.SOLN 9.16 UNIT IVCONT (17:25)
--- NOTE | 2025-04-21 17:33 | PC.NURSE ---
Heparin gtt started at 12 units/kg/hr. Bilateral AC IVs. Repeat PTT HD 2327. Patient resting comfortably, call haney placed within reach.
--- NOTE | 2025-04-21 17:56 | PHA.MEDREC ---
Pharmacy Consult ? Medication Reconciliation Pharmacy has completed the medication reconciliation.Spoke with patient via standard machine stitcher who knew and was able to confirm all medications.
[2025-04-21 18:24] LABS: Hematocrit 43.9 % (42.0-52.0); Hemoglobin 14.5 g/dl (14.0-18.0); Mean Corpuscular HGB Conc 33.0 g/dl (31.0-36.0); Mean Corpuscular Hemoglobin 29.8 pg (27.0-33.0); Mean Corpuscular Volume 90.1 fL (80.0-98.0); NRBC Abs Auto 0.000 X10*3/uL (0.0-0.012); NRBC Pct Auto 0.0 /100WBC (0.0-0.2); Platelet Count 215 X10*3/uL (160-400); Red Blood Count 4.87 X10*6/uL (4.60-5.80); White Blood Count 10.5 X10*3/uL (4.8-10.8)
[2025-04-21 18:27] VITALS: BP 116/55; PULSE 59; RESP 16; TEMP 36.4; O2SAT 99
--- NOTE | 2025-04-21 18:46 | HO.NURTONUR ---
Addendum entered by Alka Rivera RN 04/21/25 18:46: coming from home for chest pain radiating to his back beginning today. associated sob/dizziness. medicated via EMS and upon arrival patient has been resting comfortably w/ stable vitals. has extensive cardiac history. cardiology recommended admission for nstemi w/ heparin gtt. a&ox4, ambulates independently. bilateral 20IV. also w/ recent gi bleed/nosebleed however continue w/ heparin per cardiology. primarily german speaking however understands some panamanian. Original Note: [id number]
--- NOTE | 2025-04-21 19:28 | PC.NURSE ---
RN assumed care at 1900; pt denies any cp. AxOx4, Khmer speaking. Able to make needs known. Heparin infusing. bed at lowest position. call haney within reach. Will continue to monitor pt.
[2025-04-21 20:23] LABS: INTERNATIONAL NORM RATIO 1.1 (0.9-1.1); Prothrombin Time 13.8 SEC (11.2-13.5)
[2025-04-21 20:31] LABS: PTT Heparin Drip > 200.0 SEC (53-77.9)
[2025-04-21 21:07] VITALS: BP 97/54; PULSE 51
[2025-04-21] MEDS: Latanoprost 0.005 % Ophth Sol 2.5 ML DROPS 1 DROP EYE-BOTH (21:09)
[2025-04-21 23:51] VITALS: BMI 29.6
[2025-04-21 23:59] VITALS: BP 118/65; PULSE 50; RESP 18; TEMP 36.8; O2SAT 97
[2025-04-22 00:55] LABS: PTT Heparin Drip > 200.0 SEC (53-77.9)
[2025-04-22 01:51] LABS: PTT Heparin Drip > 200.0 SEC (53-77.9)
[2025-04-22 03:11] LABS: PTT Heparin Drip 79.1 SEC (53-77.9)
[2025-04-22 03:27] VITALS: BP 117/72; PULSE 48; RESP 18; TEMP 36.8; O2SAT 98
[2025-04-22 06:46] LABS: MANUAL DIFF FLAG NO
[2025-04-22 07:00] LABS: INTERNATIONAL NORM RATIO 1.1 (0.9-1.1); Prothrombin Time 13.0 SEC (11.2-13.5)
--- NOTE | 2025-04-22 07:00 | CA_ITS ---
Transthoracic Echocardiogram Patient (Last, First, Middle): Sebastian Albert R Gender: M Date of : 1960 Age: 64 Procedure Date: 04/22/2025 Procedure Type: Transthoracic Echocardiogram Location: [facility] [place] Height: 160.02 cm Weight: 75.75 kg BSA: 1.79 m2 Heart Rate: 51 bpm BP: 123 / 68 mmHg Remittance Clerk: JANUSZ Referring MD: Maria Luisa Guzman MD Disbursement Clerk: Artis Duong MD Symptoms: NSTEMI/ UA Study Quality: Adequate w contrast ECG Rhythm: Bradycardia Conclusions: - 1. Normal LV ejection fraction of 65-70% with grade 1 diastolic dysfunction 2. Normal cardiac valvular Dopplers 3. Normal RV systolic pressure 4. No gross pericardial effusion Findings Procedure Information Contrast agent, definity, is being given per protocol without apparent complications. Left Ventricle Normal left ventricular size, thickness, and systolic function. The visually estimated ejection fraction is between 65-70%. Spectral Doppler is indicative of an impaired relaxation filling pattern. E/E prime ratio is <8, consistent with normal filling pressures. Evidence suggests grade I (mild) diastolic dysfunction. Right Ventricle Normal right ventricular cavity size and systolic function. Atria Both atria are normal in size. There is no evidence of interatrial shunt. Aortic Valve Normal aortic valve structure and function. There is no aortic valve stenosis. There is no aortic valve regurgitation. Mitral Valve Likely normal mitral valve structure and function. There is trace mitral valve regurgitation. There is no mitral valve stenosis. Tricuspid Valve Likely normal tricuspid valve structure and function. There is trace tricuspid valve regurgitation. The right ventricular systolic pressure is normal. The right ventricular systolic pressure is 20 mmHg. Normal right atrial pressure. There is no evidence of pulmonary hypertension. Great Vessels All visible segments of the aorta are normal in size. The pulmonary artery was not well visualized. Venous The inferior vena cava is normal in size and collapses greater than 50% with inspiration. Pericardium/Pleural There is no evidence of pericardial effusion. Prior Study Comparison No prior study available for comparison. Measurements 2D Linear Measurements IVSd: 0.78 0.6-0.9/0.6-1.0 cm LVIDd: 4.12 3.9-5.3/4.2-5.9 cm LVIDd Index: 2.30 2.4-3.2/2.2-3.1 cm/m2 LVIDs: 3.24 2.0-3.6 cm LVPWd: 0.97 0.7-1.1 cm LA Diam: 3.20 2.7-3.8/3.0-4.0 cm LAIDs Index: 1.79 1.5-2.3 cm/m2 LV Mass: 136.65 67-162/88-224 g LV Mass Index: 76.34 43-95/49-115 g/m2 LVOT Diam: 2.00 3.0+(-)1.3 cm 2D Systolic Function EF 4C: 67.80 >55% EF 2C: 68.10 >55% EF BiP: 68.00 >55% Mitral Valve MV Pk E: 0.70 MV PK A: 0.58 MV Decel Time: 241.00 E/A: 1.20 E'Lateral: 12.80 E'Medial: 7.62 E/E' Med: 9.20 E/E' Lat: 5.50 PHT: 71.00 MVA PHT: 3.10 Decel [place]: 2.89 Aortic Valve AoV Pk [place]: 1.36 AoV Mn [place]: 0.95 AoV VTI: 0.32 AoV Pk Grad: 7.00 Aov Mn Grad: 4.00 BHARAT Cont.VTI: 2.30 LVOT LVOT Pk [place]: 1.21 LVOT Mn [place]: 0.71 LVOT VTI: 0.24 LVOT Pk Grad: 6.00 LVOT Mn Grad: 2.00 LVOT Diam: 2.00 LVOT Area: 3.14 Diastolic Function MV Pk E: 0.70 MV Pk A: 0.58 E/A: 1.20 E'Medial: 7.62 E/E' Med: 9.20 E' Laterial: 12.80 E/E' Lat: 5.50 Right Ventricle TAPSE (mm): 22.80 TVS' [place]: 12.50 Tricuspid Valve TR Pk [place]: 2.05 TR Pk Grad: 17.00 RA Press: 3.00 RVSP: 20.00 Great Vessels Aorta Sinus of Valsalva: 4.20 2.0-3.5 cm Ao Asc: 4.00 2.1-3.4 cm Pulmonary Veins Pulm Vein S/D 1.20 Updated in Other Vendor System with Status of Final Artis Duong MD electronically signed on 04/22/2025 4:41:07 PM with status of Final
[2025-04-22 07:03] VITALS: BP 123/68; PULSE 55; RESP 16; TEMP 36.6; O2SAT 97
[2025-04-22 07:08] LABS: Hematocrit 47.8 % (42.0-52.0); Hemoglobin 16.0 g/dl (14.0-18.0); Imm Gran Abs Auto 0.02 X10*3/uL (0.00-0.03); Imm Gran Pct Auto 0.2 % (0.0-0.4); Lymphocytes Absolute Auto 3.0 X10*3/uL (1.2-4.9); Mean Corpuscular HGB Conc 33.5 g/dl (31.0-36.0); Mean Corpuscular Hemoglobin 30.2 pg (27.0-33.0); Mean Corpuscular Volume 90.4 fL (80.0-98.0); NRBC Abs Auto 0.000 X10*3/uL (0.0-0.012); NRBC Pct Auto 0.0 /100WBC (0.0-0.2); Platelet Count 237 X10*3/uL (160-400); Red Blood Count 5.29 X10*6/uL (4.60-5.80); White Blood Count 9.5 X10*3/uL (4.8-10.8)
[2025-04-22 07:32] LABS: Alanine Aminotransferase 10 U/L (0-40); Albumin Level 4.1 g/dL (3.5-5.0); Alkaline Phosphatase 89 U/L (39-117); Anion Gap 14 (12-20); Aspartate Amino Transferase 26 U/L (5-37); Blood Urea Nitrogen 13 mg/dL (9-16); Calcium 9.2 mg/dL (8.4-10.2); Carbon Dioxide 20 mmol/L (22-29); Chloride 107 mmol/L (96-108); Creatinine Clr Calc Pharmacy 75.3; Estimated Glomerular Filt Rate > 60; Potassium 4.1 mmol/L (3.3-5.1); Sodium 137 mmol/L (135-145); Total Protein 7.1 g/dL (6.5-8.0)
[2025-04-22] MEDS: Aspirin Enteric Coated 81 MG TABLET.DR PO (08:55)
--- NOTE | 2025-04-22 09:18 | MHC.CM.PN ---
IMM addressed with Patient with the assist of a [facility] Policy Manager. Patient lives in an apartment with his , uses a walker & a scooter, and has a OFFICE AIDE(GRANDSON) 23 hours/week. Home/resume said services is the goal and CM has initiated and will follow for dc planning/ PCP/AUXILIARY PLANT OPERATOR is Meeta Nicholas.Grandson will transport at dc.Sister/Arielle is the HCP.
[2025-04-22 10:22] LABS: PTT Heparin Drip 71.5 SEC (53-77.9)
[2025-04-22 10:32] LABS: Troponin-I High Sensitivity 169.2 ng/L (<3.5-35.0)
[2025-04-22 11:01] VITALS: BP 109/59; PULSE 57; RESP 16; TEMP 36.7; O2SAT 97
--- NOTE | 2025-04-22 11:52 | PM.CNCAR ---
History of Present Illness History of Present Illness Date of Service: 04/22/25 Requesting physician: Maria Luisa Guzman Consult reason: other (Acute coronary syndrome) Chief complaint: ACS Narrative: I was consulted to see Sebastian in cardiology consultation today for unstable angina/acute coronary syndrome. History was obtained with help of official court interpreter at bedside. Patient with prior medical history of CAD with multiple interventions and multiple stenting in the past, last stented last year with nonobstructive disease and high RSR at the OM stent site which was mild. Patient came in the hospital yesterday while pushing the trash barrel then developed chest pain from the back into the front of the chest pressure-like symptoms. Symptoms similar to his prior presentations. The patient came to the hospital as EKGs was not showing any significant abnormality and subsequent troponin initially was on the low side rails but still within the normal range but with mid for unstable angina. Troponin done this morning is further elevated 169. Since yesterday patient has remained chest pain-free. He said recently his dual antiplatelet therapy were held because of planned outpatient screening colonoscopy. Patient denies any other symptoms. No worsening shortness of breath. No recent exertional chest pain. He said he is generally very functional. Denies any prolonged palpitation irregular heartbeat. No lightheadedness, syncope. Takes all his medications usually. Review of Systems Constitutional: Constitutional: Reports no additional constitutional complaints Eyes: Eyes: Reports no additional eye complaints Cardiovascular: Cardiovascular: Reports chest pain with activity, Denies rapid heart rate, Denies leg edema, Denies lightheadedness, Denies Loss of Consciousness and Denies dyspnea Respiratory: Respiratory: Reports no additional respiratory complaints and Denies dyspnea Gastrointestinal: Gastrointestinal: Reports no additional gastrointestinal complaints Genitourinary: Genitourinary: Reports no additional male genitourinary complaints Musculoskeletal: Musculoskeletal: Reports no additional musculoskeletal complaints Integumentary/Breasts: Skin/Breast: Reports system reviewed and no additional complaints, except as docu Neurologic: Reports system reviewed and no additional complaints, except as documented Psychiatric: Psychiatric: Reports no additional psychiatric complaints Hematologic/Lymphatic: Hematologic/Lymphatic: Reports no additional hematologic/lymphatic complaints [facility] Past Medical History Medical History Hyperlipidemia Hypertension Left inguinal hernia Osteoarthritis GERD (gastroesophageal reflux disease) GI bleed Coronary artery disease Asthma Arthralgia Family History Family History Other CAD (coronary artery disease) Surgical History Surgical History History of cardiac cath History of colonoscopy Social History Social History Household Members: Significant Other Housing: Apartment Do you presently have visiting nurse or other home services: No Alcohol intake: former Patient Tobacco Use Status: Former Tobacco user Years Smoked: 8 +/- Second Hand Smoke Exposure: No Have you been hit, kicked, punched, or otherwise hurt by someone within the past year? If so, by whom?: No Do you feel safe in your current relationship?: Yes Is there a partner from a previous relationship who is making you feel unsafe now?: No Are you made to feel afraid or neglected: No Advance Directives: No Advance Directives Information Provided: Yes Recently lost weight without trying: No Nutrition Risks: No Nutritional Risk service: No Current occupational status: disabled Meds Allergies Allergy/AdvReac Type Severity Reaction Status Date / Time No Known Allergies Allergy Verified 04/21/25 12:36 Active Medications: Current Medications Acetaminophen (Acetaminophen 325 Mg Tablet) 650 mg PO Q6H PRN PRN Reason: Pain, Mild 1-3,fever,headache Aspirin (Aspirin Enteric Coated 81 Mg Tablet.Dr) 81 mg PO DAILY [facility] Last Admin: 04/22/25 08:55 Dose: 81 mg Atorvastatin Calcium (Atorvastatin Calcium 80 Mg Tablet) 80 mg PO BEDTIME [facility] Last Admin: 04/21/25 21:07 Dose: 80 mg Calcium Carbonate (Calcium Carbonate 750 Mg Tab.Chew) 750 mg PO Q4H PRN PRN Reason: Heartburn Heparin Sodium (Porcine) (Heparin Sodium,Porcine 5,000 Unit/Ml Vial) 3,100 unit 40 unit/kg (3100 unit) IVPUSH PROTOCOL BOLUS PRN; Protocol PRN Reason: 40 unit/kg - Heparin Protocol Heparin Sodium (Porcine) (Heparin Sodium,Porcine 5,000 Unit/Ml Vial) 6,100 unit 80 unit/kg (6100 unit) IVPUSH PROTOCOL BOLUS PRN; Protocol PRN Reason: 80 unit/kg - Heparin Protocol Heparin Sodium/Sodium Chloride (Heparin Sodium,Porcine/1/2ns) 25,000 unit in 250 mls @ 0 mls/hr IVCONT .Q0M [facility]; Protocol Last Titration: 04/22/25 10:39 Dose: 8 units/kg/hr, 6.1 mls/hr Latanoprost (Latanoprost 0.005 % Ophth Sana 2.5 Ml Drops) 1 drop EYE-BOTH BEDTIME [facility] Last Admin: 04/21/25 21:09 Dose: 1 drop Magnesium Hydroxide (Milk Of Magnesia 30 Ml Oral.Susp) 30 ml PO DAILY PRN PRN Reason: Constipation Melatonin (Melatonin 3 Mg Tablet) 6 mg PO BEDTIME PRN PRN Reason: Insomnia Metoprolol Tartrate (Metoprolol Tartrate 25 Mg Tablet) 25 mg PO BID [facility]; Protocol Last Admin: 04/22/25 08:55 Dose: 25 mg Montelukast Sodium (Montelukast Sodium 10 Mg Tablet) 10 mg PO DAILY [facility] Last Admin: 04/22/25 08:55 Dose: 10 mg Nitroglycerin (Nitroglycerin 0.4 Mg Tab.Subl) 0.4 mg SUBLINGUAL Q5MX3 PRN PRN Reason: Chest Pain Omeprazole (Omeprazole 40 Mg Capsule.Dr) 40 mg PO DAILY@0630 [facility] Last Admin: 04/22/25 06:08 Dose: 40 mg Ondansetron HCl (Ondansetron Hcl 4 Mg/2 Ml Vial) 4 mg IVPUSH Q8H PRN PRN Reason: Nausea and Vomiting Sodium Chloride (0.9 % Sodium Chloride Flush 3 Ml Syringe) 3 ml IVFLUSH QSHIFT [facility] Last Admin: 04/22/25 08:55 Dose: Not Given Home Medications ?Medication ?Instructions ?Recorded ?Confirmed ?Last Taken ?Type aspirin 81 mg tablet,delayed 81 mg PO DAILY 10/17/21 04/21/25 04/21/25 History release cetirizine 10 mg tablet 10 mg PO DAILY 10/17/21 04/21/25 04/21/25 History montelukast 10 mg tablet 10 mg PO DAILY 10/17/21 04/21/25 04/21/25 History omeprazole 20 mg capsule,delayed 20 mg PO DAILY@0630 10/17/21 04/21/25 04/21/25 History release rosuvastatin 40 mg tablet 40 mg PO BEDTIME 10/17/21 04/21/25 04/21/25 History ticagrelor 90 mg tablet (Brilinta) 90 mg PO BID 10/17/21 04/21/25 04/21/25 History isosorbide mononitrate 30 mg 30 mg PO DAILY 01/20/25 04/21/25 04/21/25 History tablet,extended release 24 hr latanoprost 0.005 % eye drops 1 drp ophthalmic (eye) BEDTIME 01/20/25 04/21/25 04/21/25 History lisinopril 5 mg tablet 5 mg PO DAILY 01/20/25 04/21/25 04/21/25 History metoprolol succinate 25 mg 25 mg PO DAILY 01/20/25 04/21/25 04/21/25 History tablet,extended release 24 hr acetaminophen 325 mg tablet 650 mg PO Q6H PRN Pain (Scale 04/21/25 04/21/25 04/21/25 History Score 1-3) cholecalciferol (vitamin D3) 25 25 mcg PO DAILY 04/21/25 04/21/25 04/21/25 History mcg (1,000 unit) capsule (Vitamin D3) Physical Exam Vital Signs: Vital Signs: Last Vital Signs Temp 98.1 F 04/22/25 11:01 Pulse 57 04/22/25 11:01 Resp 16 04/22/25 11:01 BP 109/59 L 04/22/25 11:01 Pulse Ox 97 04/22/25 11:01 O2 Del Method Room Air 04/22/25 11:01 BMI result Body Mass Index 29.6 Const: General: cooperative, comfortable, no acute distress, alert and awake Nutritional Appearance: overweight Orientation/consciousness: patient oriented x3 Limitations: no limitations HEENT: Head: Yes normocephalic and Yes atraumatic Neck: Neck: Yes trachea midline, Yes supple and Yes no JVD Resp: Effort & Inspection: normal respiratory effort Auscultation: clear to auscultation bilaterally Cardio: Jugular venous distension: no JVD Rate: regular rate Rhythm: regular rhythm Heart sounds: S1 normal heart sound present, S2 normal heart sound present, no click, no gallops and no murmurs Bruits: no carotid bruits GI: Auscultation: normal bowel sounds Skin: General skin exam: no rashes or lesions noted Neuro: General: patient oriented x3 and no focal motor deficits Extrem: General: Yes no clubbing, cyanosis or edema Objective Labs and Meds 04/22/25 06:31 04/22/25 06:31 Lab results: Laboratory Results - last 24 hr 04/21/25 04/21/25 04/21/25 13:07 15:00 16:36 WBC 8.8 10.2 RBC 4.76 5.14 Hgb 14.2 15.1 Hct 43.0 46.2 MCV 90.3 89.9 MCH 29.8 29.4 MCHC 33.0 32.7 RDW 12.9 13.0 Plt Count 211 233 MPV 9.7 9.5 Immature Gran % (Auto) 0.2 Neut % (Auto) 72.2 Lymph % (Auto) 15.8 L [place] % (Auto) 8.3 Eos % (Auto) 2.8 Baso % (Auto) 0.7 Lymph # (Auto) 1.4 [place] # (Auto) 0.7 Eos # (Auto) 0.3 Baso # (Auto) 0.1 Abs Immat Gran (auto) 0.02 Absolute Neuts (auto) 6.4 Absolute Nucleated RBC 0.000 0.000 Nucleated RBC % (auto) 0.0 0.0 PT 12.5 INR 1.0 aPTT Heparin Protocol 29.6 L D Sodium 135 Potassium 4.2 Chloride 106 Carbon Dioxide 26 Anion Gap 7 L BUN 14 Creatinine 1.22 Estim Creat Clear Calc 54.7 Estimated GFR 59 Random Glucose 94 Calcium 9.2 Total Bilirubin 0.7 AST 22 ALT 14 Alkaline Phosphatase 90 Troponin I High Sens 9.5 D 29.0 D NT-Pro-B Natriuret Pep 32.0 Total Protein 6.8 Albumin 4.0 04/21/25 04/21/25 04/21/25 18:16 19:57 23:19 WBC 10.5 RBC 4.87 Hgb 14.5 Hct 43.9 MCV 90.1 MCH 29.8 MCHC 33.0 RDW 13.0 Plt Count 215 MPV 9.8 Immature Gran % (Auto) Neut % (Auto) Lymph % (Auto) [place] % (Auto) Eos % (Auto) Baso % (Auto) Lymph # (Auto) [place] # (Auto) Eos # (Auto) Baso # (Auto) Abs Immat Gran (auto) Absolute Neuts (auto) Absolute Nucleated RBC 0.000 Nucleated RBC % (auto) 0.0 PT 13.8 H INR 1.1 aPTT Heparin Protocol > 200.0 H* D > 200.0 H* Sodium Potassium Chloride Carbon Dioxide Anion Gap BUN Creatinine Estim Creat Clear Calc Estimated GFR Random Glucose Calcium Total Bilirubin AST ALT Alkaline Phosphatase Troponin I High Sens NT-Pro-B Natriuret Pep Total Protein Albumin 04/22/25 04/22/25 04/22/25 01:16 02:46 06:31 WBC 9.5 RBC 5.29 Hgb 16.0 Hct 47.8 MCV 90.4 MCH 30.2 MCHC 33.5 RDW 13.2 Plt Count 237 MPV 9.8 Immature Gran % (Auto) 0.2 Neut % (Auto) 55.3 Lymph % (Auto) 31.4 [place] % (Auto) 8.1 Eos % (Auto) 4.3 H Baso % (Auto) 0.7 Lymph # (Auto) 3.0 [place] # (Auto) 0.8 Eos # (Auto) 0.4 Baso # (Auto) 0.1 Abs Immat Gran (auto) 0.02 Absolute Neuts (auto) 5.3 Absolute Nucleated RBC 0.000 Nucleated RBC % (auto) 0.0 PT 13.0 INR 1.1 aPTT Heparin Protocol > 200.0 H* 79.1 H D Sodium 137 Potassium 4.1 Chloride 107 Carbon Dioxide 20 L Anion Gap 14 BUN 13 Creatinine 0.88 Estim Creat Clear Calc 75.3 Estimated GFR > 60 Random Glucose 64 Calcium 9.2 Total Bilirubin 0.9 AST 26 ALT 10 Alkaline Phosphatase 89 Troponin I High Sens NT-Pro-B Natriuret Pep Total Protein 7.1 Albumin 4.1 04/22/25 09:56 WBC RBC Hgb Hct MCV MCH MCHC RDW Plt Count MPV Immature Gran % (Auto) Neut % (Auto) Lymph % (Auto) [place] % (Auto) Eos % (Auto) Baso % (Auto) Lymph # (Auto) [place] # (Auto) Eos # (Auto) Baso # (Auto) Abs Immat Gran (auto) Absolute Neuts (auto) Absolute Nucleated RBC Nucleated RBC % (auto) PT INR aPTT Heparin Protocol 71.5 Sodium Potassium Chloride Carbon Dioxide Anion Gap BUN Creatinine Estim Creat Clear Calc Estimated GFR Random Glucose Calcium Total Bilirubin AST ALT Alkaline Phosphatase Troponin I High Sens 169.2 H* D NT-Pro-B Natriuret Pep Total Protein Albumin Imaging Radiologist's impression: Impressions Chest X-Ray 04/21/25 12:41 IMPRESSION: Minimal patchy disease in the right suprahilar region could represent early developing airspace disease. Electronically signed by: Bonnei Rangel MD 04/21/2025 01:00 PM [facility] Assessment and Plan (1) Acute coronary syndrome: Status: Acute Plan Symptoms suggestive of myocardial ischemia with abnormal troponins suggestive of acute coronary syndrome in the patient with multiple interventions in the past. Patient's symptoms happen after briefly with drawing in his dual antiplatelet therapy. Question stent thrombosis. He is also likely. Are they are next option is to pursue cardiac catheterization. Need for cardiac catheterization was discussed. Risks, benefits, alternatives were discussed in details. Will need to be transferred to [facility]. Arrangements have been made. Patient currently on IV heparin which will be continued. Continue aspirin as well as high-intensity statin therapy and ezetimibe therapy. Continue metoprolol therapy as well as lisinopril therapy. Further treatment based on the findings of cardiac catheterization. Greater than 30 minutes was spent in managing his care including coordinating transferred to [facility]. Procedures Date of Service Date of Service: 04/22/25
[2025-04-22 16:00] VITALS: BP 113/65; PULSE 52; RESP 16; TEMP 36.6; O2SAT 97
[2025-04-22 16:32] LABS: PTT Heparin Drip 50.2 SEC (53-77.9)
--- NOTE | 2025-04-22 17:06 | P.PNIM_ITS ---
Subjective Subjective Date of Service: 04/22/25 Interval History: No new pain or complaints today. Patient feels well, no retrosternal chest pressure, palpitations, dizziness, diaphoresis. Troponin was repeated, returning at 169.2 (29 (9.5)). Review of Systems Review of Systems: Yes all other systems are reviewed and are negative Physical Exam 2 Exam: Exam: General: A&O x3, oriented to time place person and situation, comfortable, no pain Cardiac: S1, S2 auscultated with no S3/4, no MRG. Well perfused. Respiratory: Normal breath sounds auscultated throughout all lung zones, without wheezing, rales. Normal rate. GI/ : No abdominal pain on palpation, no masses or distentions. MSK: Normal ambulation without pain at bony prominences or musculature Neurological: Normal neurological examination on overview, without obvious CN II-XII abnormalities. Vital Signs: Vital Signs: Last Vital Signs Temp 98 F 04/22/25 16:00 Pulse 52 04/22/25 16:00 Resp 16 04/22/25 16:00 BP 113/65 04/22/25 16:00 Pulse Ox 97 04/22/25 16:00 O2 Del Method Room Air 04/22/25 16:00 BMI result Body Mass Index 29.6 Objective Data Active Medications Acetaminophen (Acetaminophen 325 Mg Tablet) 650 mg PO Q6H PRN PRN Reason: Pain, Mild 1-3,fever,headache Aspirin (Aspirin Enteric Coated 81 Mg Tablet.) 81 mg PO DAILY [facility] Last Admin: 04/22/25 08:55 Dose: 81 mg Documented By: PARTHA Atorvastatin Calcium (Atorvastatin Calcium 80 Mg Tablet) 80 mg PO BEDTIME [facility] Last Admin: 04/21/25 21:07 Dose: 80 mg Documented By: KIRK Calcium Carbonate (Calcium Carbonate 750 Mg Tab.Chew) 750 mg PO Q4H PRN PRN Reason: Heartburn Heparin Sodium (Porcine) (Heparin Sodium,Porcine 5,000 Unit/Ml Vial) 3,100 unit 40 unit/kg (3100 unit) IVPUSH PROTOCOL BOLUS PRN; Protocol PRN Reason: 40 unit/kg - Heparin Protocol Heparin Sodium (Porcine) (Heparin Sodium,Porcine 5,000 Unit/Ml Vial) 6,100 unit 80 unit/kg (6100 unit) IVPUSH PROTOCOL BOLUS PRN; Protocol PRN Reason: 80 unit/kg - Heparin Protocol Heparin Sodium/Sodium Chloride (Heparin Sodium,Porcine/1/2ns) 25,000 unit in 250 mls @ 0 mls/hr IVCONT .Q0M [facility]; Protocol Last Titration: 04/22/25 10:39 Dose: 8 units/kg/hr, 6.1 mls/hr Documented By: PARTHA Co-signed By: RACHEAL Latanoprost (Latanoprost 0.005 % Ophth Sana 2.5 Ml Drops) 1 drop EYE-BOTH BEDTIME [facility] Last Admin: 04/21/25 21:09 Dose: 1 drop Documented By: KIRK Magnesium Hydroxide (Milk Of Magnesia 30 Ml Oral.Susp) 30 ml PO DAILY PRN PRN Reason: Constipation Melatonin (Melatonin 3 Mg Tablet) 6 mg PO BEDTIME PRN PRN Reason: Insomnia Metoprolol Tartrate (Metoprolol Tartrate 25 Mg Tablet) 25 mg PO BID [facility]; Protocol Last Admin: 04/22/25 08:55 Dose: 25 mg Documented By: PARTHA Montelukast Sodium (Montelukast Sodium 10 Mg Tablet) 10 mg PO DAILY [facility] Last Admin: 04/22/25 08:55 Dose: 10 mg Documented By: PARTHA Nitroglycerin (Nitroglycerin 0.4 Mg Tab.Subl) 0.4 mg SUBLINGUAL Q5MX3 PRN PRN Reason: Chest Pain Omeprazole (Omeprazole 40 Mg Capsule.Dr) 40 mg PO DAILY@0630 [facility] Last Admin: 04/22/25 06:08 Dose: 40 mg Documented By: CIRILO Ondansetron HCl (Ondansetron Hcl 4 Mg/2 Ml Vial) 4 mg IVPUSH Q8H PRN PRN Reason: Nausea and Vomiting Sodium Chloride (0.9 % Sodium Chloride Flush 3 Ml Syringe) 3 ml IVFLUSH QSHIFT [facility] Last Admin: 04/22/25 16:04 Dose: Not Given Documented By: PARTHA Non-Admin Reason: IV Running Labs 04/22/25 06:31 04/22/25 06:31 Labs: Laboratory Results - last 24 hr 04/21/25 04/21/25 04/21/25 16:36 18:16 19:57 MCV 90.1 MCH 29.8 MCHC 33.0 RDW 13.0 Plt Count 215 MPV 9.8 Immature Gran % (Auto) Neut % (Auto) Lymph % (Auto) [place] % (Auto) Eos % (Auto) Baso % (Auto) Lymph # (Auto) [place] # (Auto) Eos # (Auto) Baso # (Auto) Abs Immat Gran (auto) Absolute Neuts (auto) Absolute Nucleated RBC 0.000 Nucleated RBC % (auto) 0.0 PT 12.5 13.8 H INR 1.0 1.1 aPTT Heparin Protocol 29.6 L D > 200.0 H* D Anion Gap Estim Creat Clear Calc Estimated GFR Random Glucose Calcium Total Bilirubin AST ALT Alkaline Phosphatase Troponin I High Sens Total Protein Albumin 04/21/25 04/22/25 04/22/25 23:19 01:16 02:46 MCV MCH MCHC RDW Plt Count MPV Immature Gran % (Auto) Neut % (Auto) Lymph % (Auto) [place] % (Auto) Eos % (Auto) Baso % (Auto) Lymph # (Auto) [place] # (Auto) Eos # (Auto) Baso # (Auto) Abs Immat Gran (auto) Absolute Neuts (auto) Absolute Nucleated RBC Nucleated RBC % (auto) PT INR aPTT Heparin Protocol > 200.0 H* > 200.0 H* 79.1 H D Anion Gap Estim Creat Clear Calc Estimated GFR Random Glucose Calcium Total Bilirubin AST ALT Alkaline Phosphatase Troponin I High Sens Total Protein Albumin 04/22/25 04/22/25 04/22/25 06:31 09:56 16:05 MCV 90.4 MCH 30.2 MCHC 33.5 RDW 13.2 Plt Count 237 MPV 9.8 Immature Gran % (Auto) 0.2 Neut % (Auto) 55.3 Lymph % (Auto) 31.4 [place] % (Auto) 8.1 Eos % (Auto) 4.3 H Baso % (Auto) 0.7 Lymph # (Auto) 3.0 [place] # (Auto) 0.8 Eos # (Auto) 0.4 Baso # (Auto) 0.1 Abs Immat Gran (auto) 0.02 Absolute Neuts (auto) 5.3 Absolute Nucleated RBC 0.000 Nucleated RBC % (auto) 0.0 PT 13.0 INR 1.1 aPTT Heparin Protocol 71.5 50.2 L D Anion Gap 14 Estim Creat Clear Calc 75.3 Estimated GFR > 60 Random Glucose 64 Calcium 9.2 Total Bilirubin 0.9 AST 26 ALT 10 Alkaline Phosphatase 89 Troponin I High Sens 169.2 H* D Total Protein 7.1 Albumin 4.1 Assessment and Plan (1) Hypertension: Status: Acute (2) Benign essential HTN: Status: Acute (3) Ischemic cardiomyopathy: Status: Acute (4) Acute non-ST elevation myocardial infarction (NSTEMI): Status: Acute (5) Unstable angina: Status: Acute (6) CAD (coronary artery disease): Status: Acute (7) Acute coronary syndrome: Status: Acute (8) Antiplatelet or antithrombotic long-term use: Status: Acute (9) GI bleed: Status: Acute Plan Patient is a 61-year-old male, with a background history of HTN, HLD, multivessel CAD s/p FAWN RCA x2, LCX x2, LAD x1, most recent PCI 09/2021 on aspirin and Brilinta (now discontinued), lower GI bleed 09/2019 22 cecal ulcer, GERD, recent episode of epistaxis, presents to the hospital with complaints of left lateral chest and back pain, radiating to the anterior precordium, admitted with unstable angina/NSTEMI. NSTEMI Multivessel CAD s/p multiple FAWN x5 Ischemic cardiomyopathy pEF Patient presents with atypical chest pain. Troponin elevation from 9 --> 29-->170 Cardiology made aware, recommending heparinization and admission. PLAN - continue heparin drip - continue aspirin 81 mg OD p.o. - continue high-dose statin - continue beta-marianne - cardiology consultation - repeat echocardiography - plan for transfer to [facility] for cardiac catheterization; discharge note is prepared Lower GI bleeding cecal ulcer GERD Patient had history of GI bleeding in 06/14 a bleeding cecal ulcer. Patient also has a history of GERD. He was planned for outpatient colonoscopy on 04/23/2025. PLAN - omeprazole 40 mg OD p.o. empirically - monitor for signs and symptoms of GI bleeding - trend CBC Recent epistaxis Recently presented to hospital with epistaxis Monitor for recurrence of bleeding Despite this, continue heparin and aspirin HTN Monitor blood pressure closely; consider holding blood pressure medications Would prefer the continuation of beta-blockers HLD Continue high-intensity statin [facility] - VTE: Heparin drip - CODE STATUS: Full code - DIET: Cardiac diet Total time managing care of this patient today: 45 minutes. Quality Stroke Does the patient have a stroke diagnosis?: No VTE Prior VTE?: No VTE Risk Level:: Medical - moderate - high VTE Device Contraindication: Treatment Not Indicated VTE Drug Contraindication: Treatment Not Indicated
--- NOTE | 2025-04-22 17:11 | P.DS_ITS ---
DS: Providers Provider Date of admission: 04/21/25 16:30 Date of discharge: 04/23/25 Primary care physician: Meeta Nicholas NP Consults: 04/22/25 07:30 Consult to Cardiology Routine Consulting Provider: [facility] Reason for consultation: NSTEMI/ UA - heparin gtt DS: Diagnosis Discharge Diagnosis (1) Hypertension: Status: Acute (2) Benign essential HTN: Status: Acute (3) Ischemic cardiomyopathy: Status: Acute (4) Acute non-ST elevation myocardial infarction (NSTEMI): Status: Acute (5) Unstable angina: Status: Acute (6) CAD (coronary artery disease): Status: Acute (7) Acute coronary syndrome: Status: Acute (8) Antiplatelet or antithrombotic long-term use: Status: Acute (9) GI bleed: Status: Acute DS: Summary Hospital Course Hospital Course: Date of Service: 04/21/25 Chief Complaint: Chest pain Patient is a 61-year-old male, with a background history of HTN, HLD, multivessel CAD s/p FAWN RCA x2, LCX x2, LAD x1, most recent PCI 09/2021 on aspirin and Brilinta (now discontinued), lower GI bleed 09/2019 2/2 cecal ulcer, GERD, recent episode of epistaxis, presents to the hospital with complaints of left lateral chest and back pain, radiating to the anterior precordium. PRESENTATION Patient reports he was taken of the trash, and on returning to his house, he experienced back pain that continued to worsen, eventually radiating from the left lateral aspect of his chest to the anterior precordium. Patient describes associated dizziness, shortness of breath, palpitations, diaphoresis. He denies loss of consciousness, nausea or vomiting. He denies recent illness such as diarrhea, pneumonia or recent viral infection. The patient had recently held his medications on Saturday in anticipation for an upcoming colonoscopy Saturday. Patient reports he has no retrosternal chest pain or discomfort with climbing stairs, movement. Denies recent chest pain, dizziness, diaphoresis or dyspnea with activity or at rest. The patient's [employer] (his grandson), notices and contacted EMS. EMS arrival, administered nitroglycerin, aspirin and fentanyl with immediate relief and the patient's retrosternal chest discomfort. ED COURSE In the emergency room, the patient's troponin was drawn returning at 9, and repeat returning at 23. Unremarkable ECG Cardiology was made aware - with recommendations to initiate a heparin drip for NSTEMI. EVALUATION On evaluation, the patient appears comfortable in bed. No reported chest pain, palpitations, dizziness diaphoresis at this time. Heart rate is stable at 60 beats per minute Blood pressure preserved 105/60 PROBLEM LIST NSTEMI Multivessel CAD s/p multiple FAWN x5 Ischemic cardiomyopathy pEF Patient presents with atypical chest pain. Troponin elevation from 9 --> 29--> 169.2 Cardiology made aware, recommending heparinization and admission. Started heparin drip Patient will require transfer to [facility] for cardiac catheteri zation capability PLAN - continue heparin drip - continue aspirin 81 mg OD p.o. - continue high-dose statin - continue beta-marianne - cardiology reccs greatly appreciated - repeat echocardiography - Transfer to [facility] History of lower GI bleeding cecal ulcer 2019 GERD Patient had history of GI bleeding in 06/14 a bleeding cecal ulcer. Patient also has a history of GERD. He was planned for outpatient colonoscopy on 04/23/2025. PLAN - omeprazole 40 mg OD p.o. empirically - monitor for signs and symptoms of GI bleeding - trend CBC Recent epistaxis Recently presented to hospital with epistaxis Monitor for recurrence of bleeding Despite this, continue heparin and aspirin HTN Monitor blood pressure closely; consider holding blood pressure medications Would prefer the continuation of beta-blockers Status at Discharge Cognitive/behavioral status at discharge: Alert and oriented to person place time and situation Functional status at discharge: independent ambulation Overall status at discharge: patient is back to baseline Time Attestation Total time managing care of this patient today: 45 mintues. Discharge Coordination Time (in mins): 35 Quality: Safe Use of Opioids Does Pt have an Active Cancer Diagnosis on the Problem List?: No Quality: Stroke Does the patient have a stroke diagnosis?: No Physical Exam Exam: Exam: General: A&O x3, oriented to time place person and situation, comfortable, no pain Cardiac: S1, S2 auscultated with no S3/4, no MRG. Well perfused. Respiratory: Normal breath sounds auscultated throughout all lung zones, without wheezing, rales. Normal rate. GI/ : No abdominal pain on palpation, no masses or distentions. MSK: Normal ambulation without pain at bony prominences or musculature Neurological: Normal neurological examination on overview, without obvious CN II-XII abnormalities. Vital Signs: Vital Signs: Last Vital Signs Temp 98 F 04/22/25 16:00 Pulse 52 04/22/25 16:00 Resp 16 04/22/25 16:00 BP 113/65 04/22/25 16:00 Pulse Ox 97 04/22/25 16:00 O2 Del Method Room Air 04/22/25 16:00 BMI result Body Mass Index 29.6 DS: Data Data Completed and Pending Labs on day of discharge: Laboratory Results - last 24 hr 04/21/25 04/21/25 04/21/25 16:36 18:16 19:57 WBC 10.5 RBC 4.87 Hgb 14.5 Hct 43.9 MCV 90.1 MCH 29.8 MCHC 33.0 RDW 13.0 Plt Count 215 MPV 9.8 Immature Gran % (Auto) Neut % (Auto) Lymph % (Auto) [place] % (Auto) Eos % (Auto) Baso % (Auto) Lymph # (Auto) [place] # (Auto) Eos # (Auto) Baso # (Auto) Abs Immat Gran (auto) Absolute Neuts (auto) Absolute Nucleated RBC 0.000 Nucleated RBC % (auto) 0.0 PT 12.5 13.8 H INR 1.0 1.1 aPTT Heparin Protocol 29.6 L D > 200.0 H* D Sodium Potassium Chloride Carbon Dioxide Anion Gap BUN Creatinine Estim Creat Clear Calc Estimated GFR Random Glucose Calcium Total Bilirubin AST ALT Alkaline Phosphatase Troponin I High Sens Total Protein Albumin 04/21/25 04/22/25 04/22/25 23:19 01:16 02:46 WBC RBC Hgb Hct MCV MCH MCHC RDW Plt Count MPV Immature Gran % (Auto) Neut % (Auto) Lymph % (Auto) [place] % (Auto) Eos % (Auto) Baso % (Auto) Lymph # (Auto) [place] # (Auto) Eos # (Auto) Baso # (Auto) Abs Immat Gran (auto) Absolute Neuts (auto) Absolute Nucleated RBC Nucleated RBC % (auto) PT INR aPTT Heparin Protocol > 200.0 H* > 200.0 H* 79.1 H D Sodium Potassium Chloride Carbon Dioxide Anion Gap BUN Creatinine Estim Creat Clear Calc Estimated GFR Random Glucose Calcium Total Bilirubin AST ALT Alkaline Phosphatase Troponin I High Sens Total Protein Albumin 04/22/25 04/22/2525 06:31 09:56 16:05 WBC 9.5 RBC 5.29 Hgb 16.0 Hct 47.8 MCV 90.4 MCH 30.2 MCHC 33.5 RDW 13.2 Plt Count 237 MPV 9.8 Immature Gran % (Auto) 0.2 Neut % (Auto) 55.3 Lymph % (Auto) 31.4 Vermilion % (Auto) 8.1 Eos % (Auto) 4.3 H Baso % (Auto) 0.7 Lymph # (Auto) 3.0 Verm[place] # (Auto) 0.8 Eos # (Auto) 0.4 Baso # (Auto) 0.1 Abs Immat Gran (auto) 0.02 Absolute Neuts (auto) 5.3 Absolute Nucleated RBC 0.000 Nucleated RBC % (auto) 0.0 PT 13.0 INR 1.1 aPTT Heparin Protocol 71.5 50.2 L D Sodium 137 Potassium 4.1 Chloride 107 Carbon Dioxide 20 L Anion Gap 14 BUN 13 Creatinine 0.88 Estim Creat Clear Calc 75.3 Estimated GFR > 60 Random Glucose 64 Calcium 9.2 Total Bilirubin 0.9 AST 26 ALT 10 Alkaline Phosphatase 89 Troponin I High Sens 169.2 H* D Total Protein 7.1 Albumin 4.1 Discharge Plan Discharge Anticipated Discharge Date/Time: 04/23/25 12:24 Patient Disposition: Xfer Acute Care Hospital Discharge Diagnosis: NSTEMI Referrals: [facility] [Outside] - 1 Week Meeta Nicholas NP [Primary Care Provider, Internal Medicine] - 1 Week Discharge Medications: Continued rosuvastatin 40 mg tablet 40 mg PO BEDTIME omeprazole 20 mg capsule,delayed release(DR/EC) 20 mg PO DAILY@0630 aspirin 81 mg tablet,delayed release (DR/EC) 81 mg PO DAILY acetaminophen 325 mg Tablet 650 mg PO Q6H PRN (Reason: Pain (Scale Score 1-3)) cholecalciferol (vitamin D3) [Vitamin D3] 25 mcg (1,000 unit) capsule 25 mcg PO DAILY Brilinta 90 mg tablet 90 mg PO BID montelukast 10 mg tablet 10 mg PO DAILY cetirizine 10 mg tablet 10 mg PO DAILY latanoprost 0.005 % drops 1 drp ophthalmic (eye) BEDTIME metoprolol succinate 25 mg tablet extended release 24 hr 25 mg PO DAILY isosorbide mononitrate 30 mg tablet extended release 24 hr 30 mg PO DAILY lisinopril 5 mg tablet 5 mg PO DAILY Discharge Orders: Discharge Order (Routine); Ordered 04/23/25 Ordered By: Maria Luisa Guzman Diet: Advance to usual diet Activity on Discharge: As tolerated Stand Alone Forms: Patient Portal Discharge page Print Language: [place] Care Plan Goals: As above Health Concerns: As above Plan of Treatment: Transferred to [facility] [place] cardiac [place] Assessment: The patient is suffering with NSTEMI - on heparin drip - requiring cardiac catheterization at [facility]
[2025-04-22] MEDS: Heparin Sodium,Porcine/1/2NS 25,000 UNIT/250 ML IV.SOLN 7.63 UNIT IVCONT (17:51)
[2025-04-22 19:15] VITALS: BP 109/64; PULSE 65; RESP 16; TEMP 36.8; O2SAT 98
[2025-04-22] MEDS: Latanoprost 0.005 % Ophth Sol 2.5 ML DROPS 1 DROP EYE-BOTH (20:55)
[2025-04-22 23:20] LABS: PTT Heparin Drip 106.8 SEC (53-77.9)
[2025-04-22 23:26] VITALS: BP 117/59; PULSE 51; RESP 16; TEMP 36.6; O2SAT 97
[2025-04-23 03:04] VITALS: BP 131/73; PULSE 50; RESP 16; TEMP 36.2; O2SAT 98
[2025-04-23 07:22] LABS: PTT Heparin Drip 57.4 SEC (53-77.9)
[2025-04-23 07:38] VITALS: BP 117/69; PULSE 51; RESP 18; TEMP 36.2; O2SAT 100
[2025-04-23] MEDS: 0.9 % Sodium Chloride Flush 3 ML SYRINGE IVFLUSH (08:18)
[2025-04-23] MEDS: Aspirin Enteric Coated 81 MG TABLET.DR PO (08:18)
--- NOTE | 2025-04-23 10:26 | MHC.CM.PN ---
Per [facility], Patient will be transferred to [facility].
[2025-04-23 11:39] VITALS: BP 119/58; PULSE 61; RESP 18; TEMP 36.2; O2SAT 99
--- NOTE | 2025-04-23 11:52 | PM.PNCARD ---
Subjective Subjective Date of Service: 04/23/25 Principal diagnosis: ACS Interval history: No overnight chest pain. Hemodynamically stable. No other cardiac symptoms. No arrhythmias Review of Systems Review of Systems Yes all other systems are reviewed and are negative Physical Exam Vital Signs: Last Vital Signs Temp 97.2 F 04/23/25 11:39 Pulse 61 04/23/25 11:39 Resp 18 04/23/25 11:39 BP 119/58 L 04/23/25 11:39 Pulse Ox 99 04/23/25 11:39 O2 Del Method Room Air 04/23/25 11:39 BMI result Body Mass Index 29.6 Const General: cooperative, comfortable, no acute distress, alert and awake Nutritional Appearance: overweight Orientation/consciousness: patient oriented x3 Limitations: no limitations HEENT Head: Yes normocephalic and Yes atraumatic Neck Neck: Yes trachea midline, Yes supple and Yes no JVD Resp Effort & Inspection: normal respiratory effort Auscultation: clear to auscultation bilaterally Cardio Jugular venous distension: no JVD Rate: regular rate Rhythm: regular rhythm Heart sounds: S1 normal heart sound present, S2 normal heart sound present, no click, no gallops and no murmurs Bruits: no carotid bruits GI Auscultation: normal bowel sounds Skin General skin exam: no rashes or lesions noted Neuro General: patient oriented x3 and no focal motor deficits Extrem General: Yes no clubbing, cyanosis or edema Objective Labs and Meds 04/22/25 06:31 04/22/25 06:31 Lab results: Laboratory Results - last 24 hr 04/22/25 04/22/25 04/23/25 16:05 22:57 07:01 aPTT Heparin Protocol 50.2 L D 106.8 H D 57.4 D Conclusions: - 1. Normal LV ejection fraction of 65-70% with grade 1 diastolic dysfunction 2. Normal cardiac valvular Dopplers 3. Normal RV systolic pressure 4. No gross pericardial effusion Progress Note: A&P Assessment and plan (1) Acute coronary syndrome: Status: Acute Assessment and Plan: Acute coronary syndrome currently stable with no chest pain with no heart failure syndrome. LV ejection fraction was normal. Awaiting transfer to [facility] for cardiac catheterization. Discussed the need for cardiac catheterization including risk, benefits, alternatives. He understands agrees. Continue IV heparin. Continue aspirin high-intensity statin therapy along with metoprolol. Further treatment based on the findings. Will follow up as outpatient. Time Spent With Patient Time: Total time managing care of this patient today ____ minutes. Progress Note: Quality Stroke Does the patient have a stroke diagnosis?: No Procedures Date of Service Date of Service: 04/23/25
[2025-04-23 14:38] LABS: PTT Heparin Drip 55.1 SEC (53-77.9)
== END 2025-04-23 14:57 | disposition short-term general hospital (02) | DRG 282 ==
LOC: HO.ED 12:48 → HO.EDOVER 16:59 → HO.IMC 23:01
PROVIDERS: Internal Medicine; Physician Assistant Medical; Admitting Provider Hospitalist; Emergency Provider Emergency Medicine; PCP Nurse Practitioner Primary Care; Visit Provider Hospitalist
DX: I21.4 Non-ST elevation (NSTEMI) myocardial infarction (principal); I25.5 Ischemic cardiomyopathy; I25.110 Atherosclerotic heart disease of native coronary artery with unstable angina pectoris; I10 Essential (primary) hypertension; E78.5 Hyperlipidemia, unspecified; Z95.5 Presence of coronary angioplasty implant and graft; Z79.82 Long term (current) use of aspirin; Z79.899 Other long term (current) drug therapy
CPT/HCPCS: 36415; 71045; 80053; 83880; 84484; 85025; 85027; 85610; 85730; 93005; 93306; 99285; J1644; Q9957

== ENCOUNTER → 2025-04-21 12:25 | Outpatient (BNV) | payer OTHER, SELFPAY ==
[2022-03-15 07:26] VITALS: BP 104/58; BP 112/62; BMI 32.8
== END ==
PROVIDERS: Emergency Provider Emergency Medicine; PCP Nurse Practitioner Primary Care; Visit Provider Radiology Body Imaging
DX: R07.9 Chest pain, unspecified (principal)
CPT/HCPCS: 71045

== ENCOUNTER → 2025-04-21 12:26 | Outpatient (BNV) | payer OTHER, SELFPAY ==
[2022-03-15 07:26] VITALS: BP 104/58; BP 112/62; BMI 32.8
== END ==
PROVIDERS: Emergency Provider Emergency Medicine; PCP Nurse Practitioner Primary Care; Visit Provider Internal Medicine Cardiovascular Disease
DX: R00.1 Bradycardia, unspecified (principal)
CPT/HCPCS: 93010

== ENCOUNTER → 2025-04-21 12:47 | Outpatient (BNV) | payer OTHER, SELFPAY ==
[2022-03-15 07:26] VITALS: BP 104/58; BP 112/62; BMI 32.8
== END ==
PROVIDERS: Emergency Provider Emergency Medicine; PCP Nurse Practitioner Primary Care; Visit Provider Hospitalist
DX: I25.110 Atherosclerotic heart disease of native coronary artery with unstable angina pectoris (principal); I21.4 Non-ST elevation (NSTEMI) myocardial infarction; Z98.890 Other specified postprocedural states; I25.5 Ischemic cardiomyopathy; I10 Essential (primary) hypertension; K21.9 Gastro-esophageal reflux disease without esophagitis; K92.2 Gastrointestinal hemorrhage, unspecified; E78.2 Mixed hyperlipidemia
CPT/HCPCS: 99222

== ENCOUNTER 2025-04-21 16:30 | Outpatient (BNV) | payer OTHER, SELFPAY ==
[2022-03-15 07:26] VITALS: BP 104/58; BP 112/62; BMI 32.8
== END 2025-04-22 07:00 ==
PROVIDERS: Admitting Provider Hospitalist; Emergency Provider Emergency Medicine; PCP Nurse Practitioner Primary Care; Visit Provider Internal Medicine Cardiovascular Disease
DX: I21.4 Non-ST elevation (NSTEMI) myocardial infarction (principal)
CPT/HCPCS: 93306

== ENCOUNTER → 2025-04-21 16:30 | Outpatient (BNV) | payer OTHER, SELFPAY ==
[2022-03-15 07:26] VITALS: BP 104/58; BP 112/62; BMI 32.8
== END ==
PROVIDERS: Admitting Provider Hospitalist; Emergency Provider Emergency Medicine; PCP Nurse Practitioner Primary Care; Visit Provider Internal Medicine Cardiovascular Disease
DX: I24.9 Acute ischemic heart disease, unspecified (principal)
CPT/HCPCS: 99233